=== PATIENT | female | born 1975 | race American Indian/Alaskan Native ===

== ENCOUNTER 2016-05-16 11:49 | Emergency (ER) | payer MEDICARE, OTHER ==
--- NOTE | 2016-05-16 12:55 | Emergency Department Report ---
Chief Complaint: Medical Clearance Stated Complaint: MEDICAL CLEARENCE FOR [place] Time Seen by Provider: 05/16/16 12:52 - HPI History of Present Illness: 40 y/o female here for medical clearance for alcohol abuse for [facility] .pt denies any homicidal or suicidal ideation. Patient last had alcohol on yesterday - ROS Review of Systems: per HPI - Exam Vital Signs: Vital Signs 05/16/16 12:39 Temperature 97.8 F Pulse Rate 100 H Respiratory 18 Rate Blood Pressure 155/96 O2 Sat by Pulse 98 Oximetry Physical Exam: GENERAL: The patient is well-developed and well-nourished. Patient is in NAD. HENT: Normocephalic. Atraumatic. Patient has moist mucous membranes. Throat: No erythema, swelling or exudates. EYES: Extraocular motions are intact, PERRL NECK: Supple. No meningitic signs are noted. There is no adenopathy noted. CHEST/LUNGS: Clear to auscultation bilaterally. No wheezing, rales or rhonchi noted. There is no respiratory distress noted. HEART/CARDIOVASCULAR: Regular rate and rhythm. Normal S1 S2. No murmurs, rubs , clicks, or gallops. ABDOMEN: Abdomen is soft, nontender.. Bowel sounds normoactive. There is no abdominal distention. Negative rebound tenderness. : Deferred. SKIN: There is no rash. There is no edema. There is no diaphoresis. NEURO: The patient is A&Ox3. The patient has no focal neurologic deficits. MUSCULOSKELETAL: There is no tenderness or deformity. There is no limitation range of motion. PSYCH: Pt has appropriate mood and affect. MSE screening note: Focused history and physical exam performed. Due to findings the following was ordered: ED Disposition for MSE Condition: Stable
[2016-05-16 14:41] LABS: Basophils % (Auto) 1.2 % (0.0-1.8); Eosinophils % (Auto) 0.7 % (0.0-4.3); Hematocrit 36.5 % (30.3-42.9); Hemoglobin 11.9 gm/dl (10.1-14.3); Mean Corpuscular HGB Conc 33 % (30-34); Mean Corpuscular Hemoglobin 28 pg (28-32); Mean Corpuscular Volume 87 fl (79-97); Platelet Count 317 K/mm3 (140-440); White Blood Count 4.5 K/mm3 (4.5-11.0)
[2016-05-16 14:46] LABS: BUN/Creatinine Ratio 21.66; Blood Urea Nitrogen 13 mg/dL (7-17); Calcium 9.1 mg/dL (8.4-10.2); Carbon Dioxide 23 mmol/L (22-30); Chloride 102.3 mmol/L (98-107); Glucose 93 mg/dL (65-100); Potassium 3.4 mmol/L (3.6-5.0); Sodium 140 mmol/L (137-145)
[2016-05-16 14:49] LABS: Anion Gap 18 mmol/L
[2016-05-16 15:46] LABS: Urine Drugs of Abuse Note Disclamer
[2016-05-16 16:33] LABS: Bilirubin,Urine NEG (Negative)
[2016-05-16 16:34] LABS: Bacteria,Urine 4+ /HPF (Negative); Blood,Urine NEG (Negative); Ketones,Urine NEG (Negative); Leukocyte Esterase,Urine LG (Negative); Mucus,Urine 3+ /HPF; Nitrite,Urine NEG (Negative); Urobilinogen,Urine < 2.0 mg/dL (<2.0)
--- NOTE | 2016-05-17 | Emergency Department Report ---
[id number] CLEARENCE FOR [place] Time Seen by Provider: 05/16/16 23:29 Source: patient Mode of arrival: Ambulatory Limitations: Physical Limitation - History of Present Illness Initial comments: This is a 41-year-old female, whom I have evaluated in the past. Has a past medical history of chronic migraines, headache, chronic right shoulder pain, right-sided paralysis secondary to stroke, heart disease with stent placement, hypertension, depression, lupus, chronic pain syndrome. She has residual right upper extremity contracture, right lower extremity weakness with orthotic placement. She presents to the emergency room for medical clearance for detox. She is seeking to detox from cocaine and narcotics. She denies homicidal or suicidal ideation. She denies hallucinations. Last ingested a few weeks ago. Denies acute/new medical complaints. MD Complaint: medical clearance request Reason for Medical Clearance: other (polysubstance abuse) Alledged Intoxication: No Compliant with Home Medications: Yes Traumatic Symptoms: denies traumatic injury Associated Symptoms: denies: chest pain, shortness of breath, palpitations, diaphoresis, confusion, cough, fever/chills, headaches, anorexia, malaise, nausea/vomiting, rash, seizure, syncope, weakness Home medications: Home Medications Medication Instructions Recorded Confirmed Last Taken amLODIPine [Norvasc] 10 mg PO DAILY 10/18/14 05/17/16 05/16/16 Aspirin EC [Aspirin Enteric Coated 81 mg PO QDAY 04/23/15 05/17/16 05/16/16 TAB] Bupropion HCl [buPROPion] 150 mg PO DAILY 04/23/15 05/17/16 05/16/16 Clopidogrel [Plavix] 75 mg PO QDAY 04/23/15 05/17/16 05/16/16 DULoxetine [Cymbalta] 30 mg PO DAILY 04/23/15 05/17/16 05/16/16 Fosinopril Sodium 10 mg PO DAILY 04/23/15 05/17/16 05/16/16 Hydroxychloroquine [Plaquenil] 200 mg PO QDAY 04/23/15 05/17/16 05/16/16 Multivitamin-Mineral 1 tab PO DAILY 04/23/15 05/17/16 05/16/16 Pantoprazole [Protonix] 40 mg PO QDAY 04/23/15 05/17/16 05/16/16 Pregabalin [Lyrica] 75 mg PO BID 04/23/15 05/17/16 05/16/16 Sertraline HCl [Zoloft] 100 mg PO DAILY 04/23/15 05/17/16 05/16/16 levETIRAcetam [Keppra TAB] 500 mg PO BID 04/23/15 05/17/16 05/16/16 Previous Rx's Medication Instructions Recorded Last Taken Type Ibuprofen [Motrin 800 MG tab] 800 mg PO Q8HR PRN #20 tablet 04/23/15 05/16/16 Rx Allergies/Adverse reactions: Allergies Allergy/AdvReac Type Severity Reaction Status Date / Time No Known Allergies Allergy Verified 04/10/16 12:51 ED Review of Systems ROS: Stated complaint: MEDICAL CLEARENCE FOR [place] Other details as noted in HPI Constitutional: no symptoms reported Eyes: as per HPI Respiratory: denies: cough, shortness of breath, wheezing Cardiovascular: denies: chest pain, palpitations Gastrointestinal: denies: abdominal pain, nausea, diarrhea Genitourinary: denies: urgency, dysuria, discharge Musculoskeletal: as per HPI Neurological: as per HPI Psychiatric: denies: homicidal thoughts, suicidal thoughts ED Past Medical Hx - Past Medical History Hx Hypertension: Yes 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) Hx Heart Attack/AMI: Yes (stents) Hx Congestive Heart Failure: No Hx Diabetes: No Hx Renal Disease: Yes (pt states hospitalized about 5 mths ago) Hx Arthritis: No Hx Headaches / Migraines: Yes Hx Seizures: Yes Hx Psychiatric Treatment: Yes (depression) Hx Asthma: No Hx COPD: No Additional medical history: lupus, ambulates with assistance - Surgical History Hx Open Heart Surgery: Yes (stents) - Social History Smoking Status: Current Every Day Smoker Substance Use Type: Alcohol, Cocaine, Prescribed - Medications Home Medications: Home Medications Medication Instructions Recorded Confirmed Last Taken Type amLODIPine [Norvasc] 10 mg PO DAILY 10/18/14 05/17/16 05/16/16 History Aspirin EC [Aspirin Enteric Coated 81 mg PO QDAY 04/23/15 05/17/16 05/16/16 History TAB] Bupropion HCl [buPROPion] 150 mg PO DAILY 04/23/15 05/17/16 05/16/16 History Clopidogrel [Plavix] 75 mg PO QDAY 04/23/15 05/17/16 05/16/16 History DULoxetine [Cymbalta] 30 mg PO DAILY 04/23/15 05/17/16 05/16/16 History Fosinopril Sodium 10 mg PO DAILY 04/23/15 05/17/16 05/16/16 History Hydroxychloroquine [Plaquenil] 200 mg PO QDAY 04/23/15 05/17/16 05/16/16 History Ibuprofen [Motrin 800 MG tab] 800 mg PO Q8HR PRN #20 tablet 04/23/15 05/17/16 Rx Multivitamin-Mineral 1 tab PO DAILY 04/23/15 05/17/16 05/16/16 History Pantoprazole [Protonix] 40 mg PO QDAY 04/23/15 05/17/16 05/16/16 History Pregabalin [Lyrica] 75 mg PO BID 04/23/15 05/17/16 05/16/16 History Sertraline HCl [Zoloft] 100 mg PO DAILY 04/23/15 05/17/16 05/16/16 History levETIRAcetam [Keppra TAB] 500 mg PO BID 04/23/15 05/17/16 05/16/16 History ED Physical Exam - General Limitations: No Limitations, Physical Limitation General appearance: alert, in no apparent distress - Head Head exam: Present: atraumatic, normocephalic - Eye Eye exam: Present: normal appearance, EOMI. Absent: nystagmus - ENT ENT exam: Present: normal exam, normal orophraynx, mucous membranes moist, normal external ear exam - Neck Neck exam: Present: normal inspection, full ROM. Absent: tenderness, meningismus - Respiratory Respiratory exam: Present: normal lung sounds bilaterally. Absent: respiratory distress, wheezes, rales, rhonchi, stridor, chest wall tenderness - Cardiovascular Cardiovascular Exam: Present: regular rate, normal rhythm, normal heart sounds. Absent: bradycardia, tachycardia, irregular rhythm, systolic murmur, diastolic murmur, rubs, gallop - GI/Abdominal GI/Abdominal exam: Present: soft, normal bowel sounds. Absent: distended, tenderness, guarding, rebound, rigid, pulsatile mass - Extremities Exam Extremities exam: Present: normal inspection, normal capillary refill, other ( full range of motion, left upper extremity, left lower extremity. Chronic right upper extremity contracture.). Absent: calf tenderness - Back Exam Back exam: Present: normal inspection, full ROM. Absent: tenderness, CVA tenderness (R), CVA tenderness (L), muscle spasm, paraspinal tenderness, vertebral tenderness - Neurological Exam Neurological exam: Present: alert, oriented X3, normal gait (patient walks with a slight limp.), other (5/5 strength left upper extremity, left lower extremity. Sensation intact to light touch 4 extremities. Chronic weakness right upper/right lower extremity). Absent: motor sensory deficit - Psychiatric Psychiatric exam: Present: normal affect, normal mood. Absent: homicidal ideation, suicidal ideation - Skin Skin exam: Present: warm, dry, intact, normal color. Absent: rash ED Course Vital Signs 05/16/16 05/16/16 05/16/16 12:39 21:55 23:30 Temperature 97.8 F 98.7 F 98 F Pulse Rate 100 H 88 83 Respiratory 18 18 18 Rate Blood Pressure 155/96 152/101 Blood Pressure 136/89 [Left] O2 Sat by Pulse 98 100 99 Oximetry - Reevaluation(s) Reevaluation #1: 05/16/16 23:58 Differential diagnoses: General medical examination, medical clearance for detox Assessment and plan: 40-year-old female here for detox therapy. She is afebrile with reassuring vital signs, and has no objective indication for 1013. Her physical exam today is essentially unchanged as when I pry her evaluated her in 04/10/2016. Laboratory studies reviewed, and are essentially unremarkable. At this point in time, I see no immediate medical contraindication to detox therapy. Reevaluation #2: 05/17/16 00:00 Urinalysis is appreciated. The patient reports no irritative or obstructive urinary symptoms. ED Medical Decision Making - Lab Data Result diagrams: 05/16/16 14:11 05/16/16 14:11 Vital Signs 05/16/16 05/16/16 12:39 21:55 Temperature 97.8 F 98.7 F Pulse Rate 100 H 88 Respiratory 18 18 Rate Blood Pressure 155/96 152/101 O2 Sat by Pulse 98 100 Oximetry Lab Results 05/16/16 05/16/16 05/16/16 Range/Units 14:11 14:11 14:11 WBC 4.5 (4.5-11.0) K/mm3 RBC 4.20 (3.65-5.03) M/mm3 Hgb 11.9 (10.1-14.3) gm/dl Hct 36.5 (30.3-42.9) % MCV 87 (79-97) fl MCH 28 (28-32) pg MCHC 33 (30-34) % RDW 14.0 (13.2-15.2) % Plt Count 317 (140-440) K/mm3 Lymph % (Auto) 23.4 (13.4-35.0) % [place] % (Auto) 9.3 H (0.0-7.3) % Eos % (Auto) 0.7 (0.0-4.3) % Baso % (Auto) 1.2 (0.0-1.8) % Lymph # 1.0 L (1.2-5.4) K/mm3 [place] # 0.4 (0.0-0.8) K/mm3 Eos # 0.0 (0.0-0.4) K/mm3 Baso # 0.1 (0.0-0.1) K/mm3 Seg Neutrophils % 65.4 (40.0-70.0) % Seg Neutrophils # 2.9 (1.8-7.7) K/mm3 Sodium 140 (137-145) mmol/L Potassium 3.4 L (3.6-5.0) mmol/L Chloride 102.3 (98-107) mmol/L Carbon Dioxide 23 (22-30) mmol/L Anion Gap 18 mmol/L BUN 13 (7-17) mg/dL Creatinine 0.6 L (0.7-1.2) mg/dL Estimated GFR > 60 ml/min BUN/Creatinine Ratio 21.66 % Glucose 93 (65-100) mg/dL Calcium 9.1 (8.4-10.2) mg/dL HCG, Qual (Negative) Urine Color (Yellow) Urine Turbidity (Clear) Urine pH (5.0-7.0) Ur Specific [place] (1.003-1.030) Urine Protein (Negative) mg/dL Urine Glucose (UA) (Negative) mg/dL Urine Ketones (Negative) mg/dL Urine Blood (Negative) Urine Nitrite (Negative) Urine Bilirubin (Negative) Urine Urobilinogen (<2.0) mg/dL Ur Leukocyte Esterase (Negative) Urine WBC (Auto) (0.0-6.0) /HPF Urine RBC (Auto) (0.0-6.0) /HPF U Epithel Cells (Auto) (0-13.0) /HPF Urine Bacteria (Auto) (Negative) /HPF Urine Mucus /HPF Salicylates < 0.3 L (2.8-20.0) mg/dL Urine Opiates Screen Urine Methadone Screen Acetaminophen (10.0-30.0) ug/mL Ur Barbiturates Screen Ur Phencyclidine Scrn Ur Amphetamines Screen U Benzodiazepines Scrn Urine Cocaine Screen U Marijuana (THC) Screen Drugs of Abuse Note Plasma/Serum Alcohol (0-0.07) gm% 05/16/16 05/16/16 05/16/16 Range/Units 14:11 14:11 14:11 WBC (4.5-11.0) K/mm3 RBC (3.65-5.03) M/mm3 Hgb (10.1-14.3) gm/dl Hct (30.3-42.9) % MCV (79-97) fl MCH (28-32) pg MCHC (30-34) % RDW (13.2-15.2) % Plt Count (140-440) K/mm3 Lymph % (Auto) (13.4-35.0) % [place] % (Auto) (0.0-7.3) % Eos % (Auto) (0.0-4.3) % Baso % (Auto) (0.0-1.8) % Lymph # (1.2-5.4) K/mm3 [place] # (0.0-0.8) K/mm3 Eos # (0.0-0.4) K/mm3 Baso # (0.0-0.1) K/mm3 Seg Neutrophils % (40.0-70.0) % Seg Neutrophils # (1.8-7.7) K/mm3 Sodium (137-145) mmol/L Potassium (3.6-5.0) mmol/L Chloride (98-107) mmol/L Carbon Dioxide (22-30) mmol/L Anion Gap mmol/L BUN (7-17) mg/dL Creatinine (0.7-1.2) mg/dL Estimated GFR ml/min BUN/Creatinine Ratio % Glucose (65-100) mg/dL Calcium (8.4-10.2) mg/dL HCG, Qual Negative (Negative) Urine Color (Yellow) Urine Turbidity (Clear) Urine pH (5.0-7.0) Ur Specific [place] (1.003-1.030) Urine Protein (Negative) mg/dL Urine Glucose (UA) (Negative) mg/dL Urine Ketones (Negative) mg/dL Urine Blood (Negative) Urine Nitrite (Negative) Urine Bilirubin (Negative) Urine Urobilinogen (<2.0) mg/dL Ur Leukocyte Esterase (Negative) Urine WBC (Auto) (0.0-6.0) /HPF Urine RBC (Auto) (0.0-6.0) /HPF U Epithel Cells (Auto) (0-13.0) /HPF Urine Bacteria (Auto) (Negative) /HPF Urine Mucus /HPF Salicylates (2.8-20.0) mg/dL Urine Opiates Screen Urine Methadone Screen Acetaminophen < 15.0 (10.0-30.0) ug/mL Ur Barbiturates Screen Ur Phencyclidine Scrn Ur Amphetamines Screen U Benzodiazepines Scrn Urine Cocaine Screen U Marijuana (THC) Screen Drugs of Abuse Note Plasma/Serum Alcohol < 0.01 (0-0.07) gm% 05/16/16 05/16/16 Range/Units 15:17 15:17 WBC (4.5-11.0) K/mm3 RBC (3.65-5.03) M/mm3 Hgb (10.1-14.3) gm/dl Hct (30.3-42.9) % MCV (79-97) fl MCH (28-32) pg MCHC (30-34) % RDW (13.2-15.2) % Plt Count (140-440) K/mm3 Lymph % (Auto) (13.4-35.0) % [place] % (Auto) (0.0-7.3) % Eos % (Auto) (0.0-4.3) % Baso % (Auto) (0.0-1.8) % Lymph # (1.2-5.4) K/mm3 [place] # (0.0-0.8) K/mm3 Eos # (0.0-0.4) K/mm3 Baso # (0.0-0.1) K/mm3 Seg Neutrophils % (40.0-70.0) % Seg Neutrophils # (1.8-7.7) K/mm3 Sodium (137-145) mmol/L Potassium (3.6-5.0) mmol/L Chloride (98-107) mmol/L Carbon Dioxide (22-30) mmol/L Anion Gap mmol/L BUN (7-17) mg/dL Creatinine (0.7-1.2) mg/dL Estimated GFR ml/min BUN/Creatinine Ratio % Glucose (65-100) mg/dL Calcium (8.4-10.2) mg/dL HCG, Qual (Negative) Urine Color [place] (Yellow) Urine Turbidity Turbid (Clear) Urine pH 6.0 (5.0-7.0) Ur Specific [place] 1.024 (1.003-1.030) Urine Protein 30 mg/dl (Negative) mg/dL Urine Glucose (UA) Neg (Negative) mg/dL Urine Ketones Neg (Negative) mg/dL Urine Blood Neg (Negative) Urine Nitrite Neg (Negative) Urine Bilirubin Neg (Negative) Urine Urobilinogen < 2.0 (<2.0) mg/dL Ur Leukocyte Esterase Lg (Negative) Urine WBC (Auto) 8.0 H (0.0-6.0) /HPF Urine RBC (Auto) 17.0 (0.0-6.0) /HPF U Epithel Cells (Auto) 1.0 (0-13.0) /HPF Urine Bacteria (Auto) 4+ (Negative) /HPF Urine Mucus 3+ /HPF Salicylates (2.8-20.0) mg/dL Urine Opiates Screen Presumptive negative Urine Methadone Screen Presumptive negative Acetaminophen (10.0-30.0) ug/mL Ur Barbiturates Screen Presumptive negative Ur Phencyclidine Scrn Presumptive negative Ur Amphetamines Screen Presumptive negative U Benzodiazepines Scrn Presumptive negative Urine Cocaine Screen Presumptive negative U Marijuana (THC) Screen Presumptive negative Drugs of Abuse Note Disclamer Plasma/Serum Alcohol (0-0.07) gm% Vital Signs 05/16/16 05/16/16 12:39 21:55 Temperature 97.8 F 98.7 F Pulse Rate 100 H 88 Respiratory 18 18 Rate Blood Pressure 155/96 152/101 O2 Sat by Pulse 98 100 Oximetry ED Disposition Clinical Impression: Medical clearance for psychiatric admission Disposition: DISCHARGED TO HOME OR SELFCARE Is pt being admited?: No Does the pt Need Aspirin: No Condition: Stable Instructions: Polysubstance Abuse (ED) Additional Instructions: Continue current outpatient medications which are nonsedating and nonnarcotic/ [id number]. Blood pressure was slightly elevated. This should be followed up by a primary care doctor within the next week to 2 weeks. Long- term complications of hypertension/elevated blood pressure includes stroke, heart attack, disability, , paralysis, permanent loss of quality of life. I recommend that you discontinue consumption of narcotics and cocaine. These are bad for your health. At this point in time, I see no immediate medical contraindication to detox therapy. Please return to the ER right away with chest pain, shortness of breath, nausea, vomiting, diarrhea. Referrals: PRIMARY CAREMD [Primary Care Provider] - 3-5 Days PHILL CLEANING MD [Staff Physician] - 3-5 Days [facility] [Provider Group] - 3-5 Days [facility] [Outside] - 3-5 Days
[2016-05-17 00:08] VITALS: BP 136/89
== END 2016-05-17 00:23 | disposition home or self-care (01) ==
LOC: ED 11:49
DX: F19.10 Other psychoactive substance abuse, uncomplicated (principal); F29 Unspecified psychosis not due to a substance or known physiological condition; Z79.82 Long term (current) use of aspirin; I10 Essential (primary) hypertension; I25.2 Old myocardial infarction; G43.909 Migraine, unspecified, not intractable, without status migrainosus; F32.9 Major depressive disorder, single episode, unspecified; R56.9 Unspecified convulsions; F17.210 Nicotine dependence, cigarettes, uncomplicated; I63.9 Cerebral infarction, unspecified; G81.91 Hemiplegia, unspecified affecting right dominant side; F12.10 Cannabis abuse, uncomplicated
CPT/HCPCS: 36415; 80048; 80307; 81001; 84703; 85025; 99283; G0480; 80320

== ENCOUNTER 2016-07-22 15:58 | Emergency (ER) | payer MEDICARE, OTHER ==
[2016-07-22 18:34] LABS: Urine Drugs of Abuse Note Disclamer
[2016-07-22 18:45] LABS: Bilirubin,Urine NEG (Negative); Blood,Urine NEG (Negative); Ketones,Urine NEG (Negative); Leukocyte Esterase,Urine NEG (Negative); Mucus,Urine FEW /HPF; Nitrite,Urine NEG (Negative); Protein,Urine <15 mg/dL mg/dL (Negative); RBC,Urine < 1.0 /HPF (0.0-6.0); Urobilinogen,Urine < 2.0 mg/dL (<2.0)
[2016-07-22] MEDS ORDERED: REGLAN IV ONE (19:34)
[2016-07-22] MEDS ORDERED: BENADRYL IV ONE (19:34)
[2016-07-22] MEDS ORDERED: TORADOL IV ONE (19:36)
--- NOTE | 2016-07-22 19:50 | Emergency Department Report ---
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 Headache started today and constant. Triage noted headache in the frontal area but patient states that headache is all over. Pain rated 10/10 in intensity. Positive light sensitivity. No ports of nausea, vomiting, blurred vision. Presents chronic right-sided weakness and dysarthria without any acute neurologic changes. Patient cannot recall what her previous migraine felt like since it has been a long time she had a headache. She also complains of chronic right- sided arm pain due to CVA and previous fracture. Allergies/Adverse Reactions: Allergies No Known Allergies Allergy (Verified 04/10/16 12:51) Home Medications: Ambulatory Orders amLODIPine [Norvasc] 10 mg PO DAILY 10/18/14 Aspirin EC [Aspirin Enteric Coated TAB] 81 mg PO QDAY 04/23/15 Bupropion HCl [buPROPion] 150 mg PO DAILY 04/23/15 Clopidogrel [Plavix] 75 mg PO QDAY 04/23/15 DULoxetine [Cymbalta] 30 mg PO DAILY 04/23/15 Fosinopril Sodium 10 mg PO DAILY 04/23/15 Hydroxychloroquine [Plaquenil] 200 mg PO QDAY 04/23/15 Ibuprofen [Motrin 800 MG tab] 800 mg PO Q8HR PRN #20 tablet 04/23/15 Multivitamin-Mineral 1 tab PO DAILY 04/23/15 Pantoprazole [Protonix] 40 mg PO QDAY 04/23/15 Pregabalin [Lyrica] 75 mg PO BID 04/23/15 Sertraline HCl [Zoloft] 100 mg PO DAILY 04/23/15 levETIRAcetam [Keppra TAB] 500 mg PO BID 04/23/15 HYDROcodone/APAP 5-325 [[place] 5/325] 1 each PO Q6HR PRN #20 tablet 07/22/16 ED Review of Systems ROS: Stated complaint: HEADACHE Other details as noted in HPI Comment: All other systems reviewed and negative Other: Constitutional: No fevers chills Eyes: No eye pain visual changes ENT: No ear pain or throat pain Neck: Denies pain Respiratory: Denies cough wheezing shortness of breath Cardiovascular: Denies chest pain, palpitations, syncope GI: Denies abdominal pain, nausea, vomiting, diarrhea Musculoskeletal: Denies back pain, joint swelling Skin: Denies rash, lesions, erythema Neurologic: as per hpi Psychiatric: Denies suicidal ideation, hallucinations ED Past Medical Hx - Past Medical History Hx Hypertension: Yes 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, dysphagia) Hx Heart Attack/AMI: Yes (stents) Hx Congestive Heart Failure: No Hx Diabetes: No Hx Renal Disease: Yes (pt states hospitalized about 5 mths ago) Hx Arthritis: No Hx Headaches / Migraines: Yes Hx Seizures: Yes Hx Psychiatric Treatment: Yes (depression) Hx Asthma: No Hx COPD: No Additional medical history: lupus, ambulates with assistance - Surgical History Hx Open Heart Surgery: Yes (stents) - Social History Smoking Status: Former Smoker Substance Use Type: Alcohol - Medications Home Medications: Home Medications Medication Instructions Recorded Confirmed Last Taken Type amLODIPine [Norvasc] 10 mg PO DAILY 10/18/14 05/17/16 05/16/16 History Aspirin EC [Aspirin Enteric Coated 81 mg PO QDAY 04/23/15 05/17/16 05/16/16 History TAB] Bupropion HCl [buPROPion] 150 mg PO DAILY 04/23/15 05/17/16 05/16/16 History Clopidogrel [Plavix] 75 mg PO QDAY 04/23/15 05/17/16 05/16/16 History DULoxetine [Cymbalta] 30 mg PO DAILY 04/23/15 05/17/16 05/16/16 History Fosinopril Sodium 10 mg PO DAILY 04/23/15 05/17/16 05/16/16 History Hydroxychloroquine [Plaquenil] 200 mg PO QDAY 04/23/15 05/17/16 05/16/16 History Ibuprofen [Motrin 800 MG tab] 800 mg PO Q8HR PRN #20 tablet 04/23/15 05/17/16 Rx Multivitamin-Mineral 1 tab PO DAILY 04/23/15 05/17/16 05/16/16 History Pantoprazole [Protonix] 40 mg PO QDAY 04/23/15 05/17/16 05/16/16 History Pregabalin [Lyrica] 75 mg PO BID 04/23/15 05/17/16 05/16/16 History Sertraline HCl [Zoloft] 100 mg PO DAILY 04/23/15 05/17/16 05/16/16 History levETIRAcetam [Keppra TAB] 500 mg PO BID 04/23/15 05/17/16 05/16/16 History HYDROcodone/APAP 5-325 [[place] 1 each PO Q6HR PRN #20 tablet 07/22/16 Unknown Rx 5/325] ED Physical Exam - General Limitations: No Limitations - Other Other exam information: General: No limitations, patient is alert in no acute distress Head exam: Atraumatic, normocephalic Eyes exam: Normal appearance, pupils equal reactive to light, extraocular movements intact ENT: Moist mucous membrane Neck exam: Normal inspection, full range of motion, no meningismus nontender Respiratory exam: Clear to auscultation bilateral, no wheezes, rales, crackles Cardiovascular: Normal rate and rhythm, normal heart sounds Abdomen: Soft, nondistended, and nontender, with normal bowel sounds, no rebound, or guarding Extremity: Full range of motion normal inspection no deformity Back: Normal Inspection, full range of motion, no tenderness Neurologic: Alert, chronic dysarthria, limited movement of right upper lower extremity with contractures. Psychiatric: normal affect, normal mood Skin: Warm, dry, intact ED Course Vital Signs 07/22/16 07/22/16 07/22/16 16:08 16:21 17:00 Temperature 98.3 F Pulse Rate 105 H Respiratory 18 Rate Blood Pressure 125/90 120/75 Blood Pressure 125/90 [Left] O2 Sat by Pulse 96 96 98 Oximetry 07/22/16 07/22/16 07/22/16 17:59 18:00 19:00 Temperature Pulse Rate Respiratory 18 Rate Blood Pressure 136/56 136/84 Blood Pressure [Left] O2 Sat by Pulse 99 97 Oximetry 07/22/16 07/22/16 07/22/16 19:30 20:00 21:00 Temperature Pulse Rate 84 82 86 Respiratory 18 18 16 Rate Blood Pressure Blood Pressure 132/85 132/82 139/85 [Left] O2 Sat by Pulse 96 96 96 Oximetry - Reevaluation(s) Reevaluation #1: 07/22/16 22:52 pt improved with ed tx ED Medical Decision Making - Lab Data Result diagrams: 07/22/16 19:39 07/22/16 19:39 Lab Results 07/22/16 07/22/16 07/22/16 Range/Units 18:00 18:00 19:39 WBC 3.7 L (4.5-11.0) K/mm3 RBC 4.10 (3.65-5.03) M/mm3 Hgb 11.5 (10.1-14.3) gm/dl Hct 35.2 (30.3-42.9) % MCV 86 (79-97) fl MCH 28 (28-32) pg MCHC 33 (30-34) % RDW 14.4 (13.2-15.2) % Plt Count 255 (140-440) K/mm3 Sodium (137-145) mmol/L Potassium (3.6-5.0) mmol/L Chloride (98-107) mmol/L Carbon Dioxide (22-30) mmol/L Anion Gap mmol/L BUN (7-17) mg/dL Creatinine (0.7-1.2) mg/dL Estimated GFR ml/min BUN/Creatinine Ratio % Glucose (65-100) mg/dL Calcium (8.4-10.2) mg/dL Urine Color Yellow (Yellow) Urine Turbidity Clear (Clear) Urine pH 7.0 (5.0-7.0) Ur Specific [place] 1.013 (1.003-1.030) Urine Protein <15 mg/dl (Negative) mg/dL Urine Glucose (UA) Neg (Negative) mg/dL Urine Ketones Neg (Negative) mg/dL Urine Blood Neg (Negative) Urine Nitrite Neg (Negative) Urine Bilirubin Neg (Negative) Urine Urobilinogen < 2.0 (<2.0) mg/dL Ur Leukocyte Esterase Neg (Negative) Urine WBC (Auto) 1.0 (0.0-6.0) /HPF Urine RBC (Auto) < 1.0 (0.0-6.0) /HPF U Epithel Cells (Auto) 1.0 (0-13.0) /HPF Urine Mucus Few /HPF Urine HCG, Qual Negative (Negative) Urine Opiates Screen Presumptive negative Urine Methadone Screen Presumptive negative Ur Barbiturates Screen Presumptive negative Ur Phencyclidine Scrn Presumptive negative Ur Amphetamines Screen Presumptive negative U Benzodiazepines Scrn Presumptive negative Urine Cocaine Screen Presumptive negative U Marijuana (THC) Screen Presumptive negative Drugs of Abuse Note Disclamer 07/22/16 Range/Units 19:39 WBC (4.5-11.0) K/mm3 RBC (3.65-5.03) M/mm3 Hgb (10.1-14.3) gm/dl Hct (30.3-42.9) % MCV (79-97) fl MCH (28-32) pg MCHC (30-34) % RDW (13.2-15.2) % Plt Count (140-440) K/mm3 Sodium 140 (137-145) mmol/L Potassium 4.2 (3.6-5.0) mmol/L Chloride 101.7 (98-107) mmol/L Carbon Dioxide 26 (22-30) mmol/L Anion Gap 17 mmol/L BUN 8 (7-17) mg/dL Creatinine 0.7 (0.7-1.2) mg/dL Estimated GFR > 60 ml/min BUN/Creatinine Ratio 11.42 % Glucose 88 (65-100) mg/dL Calcium 9.1 (8.4-10.2) mg/dL Urine Color (Yellow) Urine Turbidity (Clear) Urine pH (5.0-7.0) Ur Specific [place] (1.003-1.030) Urine Protein (Negative) mg/dL Urine Glucose (UA) (Negative) mg/dL Urine Ketones (Negative) mg/dL Urine Blood (Negative) Urine Nitrite (Negative) Urine Bilirubin (Negative) Urine Urobilinogen (<2.0) mg/dL Ur Leukocyte Esterase (Negative) Urine WBC (Auto) (0.0-6.0) /HPF Urine RBC (Auto) (0.0-6.0) /HPF U Epithel Cells (Auto) (0-13.0) /HPF Urine Mucus /HPF Urine HCG, Qual (Negative) Urine Opiates Screen Urine Methadone Screen Ur Barbiturates Screen Ur Phencyclidine Scrn Ur Amphetamines Screen U Benzodiazepines Scrn Urine Cocaine Screen U Marijuana (THC) Screen Drugs of Abuse Note - Radiology Data Radiology results: report reviewed CT head: Large area of encephalomalacia in the left hemisphere with dystrophic cortical calcifications unchanged from prior study consistent with old infarct. No acute findings. - Medical Decision Making Patient pain ED treatment which included Toradol, Benadryl, and Reglan. - Differential Diagnosis migraine, intracranial hemorrhage, CVA Critical Care Time: No Critical care attestation.: If time is entered above; I have spent that time in minutes in the direct care of this critically ill patient, excluding procedure time. ED Disposition Clinical Impression: Migraine headache, CVA, old, speech/language deficit, History of CVA with residual deficit, Chronic pain of right upper extremity Disposition: DISCHARGED TO HOME OR SELFCARE Is pt being admited?: No Does the pt Need Aspirin: No Condition: Stable Instructions: Migraine Headache (ED) Additional Instructions: Take the medication as prescribed. Return if symptoms worsen. Prescriptions: HYDROcodone/APAP 5-325 [[place] 5/325] 1 each PO Q6HR PRN #20 tablet PRN Reason: Pain Referrals: PRIMARY CARE, [Primary Care Provider] - 3-5 Days Time of Disposition: 22:47
[2016-07-22 19:51] LABS: Hematocrit 35.2 % (30.3-42.9); Hemoglobin 11.5 gm/dl (10.1-14.3); Mean Corpuscular HGB Conc 33 % (30-34); Mean Corpuscular Hemoglobin 28 pg (28-32); Mean Corpuscular Volume 86 fl (79-97); Platelet Count 255 K/mm3 (140-440); Red Cell Distribution Width 14.4 % (13.2-15.2); White Blood Count 3.7 K/mm3 (4.5-11.0)
[2016-07-22 20:10] LABS: Anion Gap 17 mmol/L; BUN/Creatinine Ratio 11.42; Blood Urea Nitrogen 8 mg/dL (7-17); Calcium 9.1 mg/dL (8.4-10.2); Carbon Dioxide 26 mmol/L (22-30); Chloride 101.7 mmol/L (98-107); Glucose 88 mg/dL (65-100); Potassium 4.2 mmol/L (3.6-5.0); Sodium 140 mmol/L (137-145)
--- NOTE | 2016-07-22 21:13 | Cat Scan Report ---
FINAL REPORT PROCEDURE: CT HEAD/BRAIN WO CON TECHNIQUE: Computerized tomography of the head was performed without contrast material. HISTORY: headache, hx of migraines, cva with r paralysis COMPARISON: 04/10/2016 FINDINGS: Skull and scalp: Normal. Paranasal sinuses: Normal. Ventricles and subarachnoid spaces: There is central and cortical atrophy which is advanced for the patient's age. There is ex vacuo dilatation of the left lateral ventricle due to adjacent infarcted brain.. Cerebrum: There is a large area of encephalomalacia in the left hemisphere with dystrophic cortical calcifications unchanged from prior study consistent with old infarct. There is no specific evidence of acute infarct. There is no hemorrhage, mass, mass effect or midline shift.. Cerebellum and brainstem: No evidence of hemorrhage, acute infarction or mass. There is atrophy of the left cerebral peduncle. Vasculature: Normal. Comments: None. IMPRESSION: There is central and cortical atrophy which is advanced for the patient's age. There is ex vacuo dilatation of the left lateral ventricle due to adjacent infarcted brain.. There is a large area of encephalomalacia in the left hemisphere with dystrophic cortical calcifications unchanged from prior study consistent with old infarct. There is no specific evidence of acute infarct. There is no hemorrhage, mass, mass effect or midline shift..
[2016-07-22 23:36] VITALS: BP 129/88
== END 2016-07-22 23:30 | disposition home or self-care (01) ==
LOC: ED 15:58
DX: G43.909 Migraine, unspecified, not intractable, without status migrainosus (principal); I63.9 Cerebral infarction, unspecified; G89.29 Other chronic pain; F32.9 Major depressive disorder, single episode, unspecified; I25.2 Old myocardial infarction; Z87.891 Personal history of nicotine dependence; Z79.82 Long term (current) use of aspirin
CPT/HCPCS: 36415; 70450; 80048; 80307; 81001; 81025; 85027; 93005; 93010; 96374; 96375; 99284; J1200; J1885; J2765

== ENCOUNTER 2016-08-14 17:51 | Emergency (ER) | payer MEDICARE, OTHER ==
[2016-08-14] MEDS ORDERED: NACL 0.9% 1000 ML 1,000 ML IV ONE (20:39)
[2016-08-14] MEDS ORDERED: MOTRIN PO ONE (20:39)
--- NOTE | 2016-08-14 20:45 | Emergency Department Report ---
ED Lower Extremity HPI - General Chief Complaint: Pain General Stated Complaint: RT SIDE PAIN Time Seen by Provider: 08/14/16 20:24 Source: patient, EMS Mode of arrival: Stretcher Limitations: Physical Limitation - History of Present Illness Initial Comments: Patient is a 46-year-old female with a history of HIV, multiple CVAs, with right -sided deficits presenting with right lower leg pain 2 days. Push ambulates with a cane and via a wheelchair. Patient reports the pain is in her right lower calf. Patient is on Plavix daily and has not missed any medication doses. Otherwise no fevers, chills, nausea, vomiting, diarrhea, chest pain, shortness of breath, abdominal pain, trauma, history of DVT or PE, hemoptysis, travel, or sick contacts. - Related Data Home Medications Medication Instructions Recorded Confirmed Last Taken amLODIPine [Norvasc] 10 mg PO DAILY 10/18/14 08/14/16 08/14/16 Aspirin EC [Aspirin Enteric Coated 81 mg PO QDAY 04/23/15 08/14/16 08/14/16 TAB] Bupropion HCl [buPROPion] 150 mg PO DAILY 04/23/15 08/14/16 08/14/16 Clopidogrel [Plavix] 75 mg PO QDAY 04/23/15 08/14/16 08/14/16 DULoxetine [Cymbalta] 30 mg PO DAILY 04/23/15 08/14/16 08/14/16 Fosinopril Sodium 10 mg PO DAILY 04/23/15 08/14/16 08/14/16 Multivitamin-Mineral 1 tab PO DAILY 04/23/15 08/14/16 08/14/16 Pantoprazole [Protonix] 40 mg PO QDAY 04/23/15 08/14/16 08/14/16 Pregabalin [Lyrica] 75 mg PO BID 04/23/15 08/14/16 08/14/16 Sertraline HCl [Zoloft] 100 mg PO DAILY 04/23/15 08/14/16 08/14/16 levETIRAcetam [Keppra TAB] 500 mg PO BID 04/23/15 08/14/16 08/14/16 Previous Rx's Medication Instructions Recorded Last Taken Type Ibuprofen [Motrin] 600 mg PO Q8H PRN 5 Days 08/14/16 Unknown Rx Allergies Allergy/AdvReac Type Severity Reaction Status Date / Time No Known Allergies Allergy Verified 04/10/16 12:51 ED Review of Systems ROS: Stated complaint: RT SIDE PAIN Other details as noted in HPI Comment: All other systems reviewed and negative ED Past Medical Hx - Past Medical History Previous Medical History?: Yes Hx Hypertension: Yes 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, dysphagia) Hx Heart Attack/AMI: Yes (stents) Hx Congestive Heart Failure: No Hx Diabetes: No Hx Renal Disease: Yes (pt states hospitalized about 5 mths ago) Hx Arthritis: No Hx Headaches / Migraines: Yes Hx Seizures: Yes Hx Psychiatric Treatment: Yes (depression) Hx Asthma: No Hx COPD: No Additional medical history: lupus, ambulates with assistance - Surgical History Hx Open Heart Surgery: Yes (stents) - Social History Smoking Status: Never Smoker Substance Use Type: None - Medications Home Medications: Home Medications Medication Instructions Recorded Confirmed Last Taken Type amLODIPine [Norvasc] 10 mg PO DAILY 10/18/14 08/14/16 08/14/16 History Aspirin EC [Aspirin Enteric Coated 81 mg PO QDAY 04/23/15 08/14/16 08/14/16 History TAB] Bupropion HCl [buPROPion] 150 mg PO DAILY 04/23/15 08/14/16 08/14/16 History Clopidogrel [Plavix] 75 mg PO QDAY 04/23/15 08/14/16 08/14/16 History DULoxetine [Cymbalta] 30 mg PO DAILY 04/23/15 08/14/16 08/14/16 History Fosinopril Sodium 10 mg PO DAILY 04/23/15 08/14/16 08/14/16 History Multivitamin-Mineral 1 tab PO DAILY 04/23/15 08/14/16 08/14/16 History Pantoprazole [Protonix] 40 mg PO QDAY 04/23/15 08/14/16 08/14/16 History Pregabalin [Lyrica] 75 mg PO BID 04/23/15 08/14/16 08/14/16 History Sertraline HCl [Zoloft] 100 mg PO DAILY 04/23/15 08/14/16 08/14/16 History levETIRAcetam [Keppra TAB] 500 mg PO BID 04/23/15 08/14/16 08/14/16 History Ibuprofen [Motrin] 600 mg PO Q8H PRN 5 Days 08/14/16 Unknown Rx ED Physical Exam - General Limitations: Language Barrier (Dysarthria), Physical Limitation General appearance: alert, in no apparent distress - Head Head exam: Present: atraumatic, normocephalic - Eye Eye exam: Present: normal appearance - ENT ENT exam: Present: mucous membranes moist - Neck Neck exam: Present: normal inspection - Respiratory Respiratory exam: Present: normal lung sounds bilaterally. Absent: respiratory distress - Cardiovascular Cardiovascular Exam: Present: regular rate, normal rhythm. Absent: systolic murmur, diastolic murmur, rubs, gallop - GI/Abdominal GI/Abdominal exam: Present: soft, normal bowel sounds - Extremities Exam Extremities exam: Present: normal inspection, other (Pt has R sided paralysis, sensation is intact, R calf tenderness. left side is WNL) - Back Exam Back exam: Present: normal inspection - Neurological Exam Neurological exam: Present: alert, oriented X3, CN II-XII intact, abnormal gait - Psychiatric Psychiatric exam: Present: normal affect, normal mood ED Course Vital Signs 08/14/16 08/14/16 08/14/16 19:35 19:42 21:15 Temperature 98 F Pulse Rate 89 Respiratory 18 18 Rate Blood Pressure 128/79 O2 Sat by Pulse 100 Oximetry 08/14/16 08/14/16 23:06 23:27 Temperature Pulse Rate Respiratory 18 18 Rate Blood Pressure O2 Sat by Pulse 98 Oximetry ED Lower Extremity MDM - Lab Data Result diagrams: 08/14/16 20:54 08/14/16 20:54 - Radiology Data Radiology results: pending, report reviewed 08/14/16 22:21 - Radiology Dept. Note by KRISTIAN RICHTER Acct Num: [id number] : 1975 Patient Age: 40 Venous RLE for R/O DVT: Per Images obtained no evidence of DVT in RT CFV, SFV, DFV, GSV, Pop V, or Post Tib. Rt Pern V difficult to obtain images of and unable to R/O DVT in vessels. Lt CFV and Prox SFV appear with out DVT. Initialized on 08/14/16 22:21 - END OF NOTE Critical care attestation.: If time is entered above; I have spent that time in minutes in the direct care of this critically ill patient, excluding procedure time. ED Disposition Clinical Impression: Right leg pain Disposition: DISCHARGED TO HOME OR SELFCARE Is pt being admited?: No Condition: Stable Prescriptions: Ibuprofen [Motrin] 600 mg PO Q8H PRN 5 Days PRN Reason: Pain Referrals: PRIMARY CARE, [Primary Care Provider] - 3-5 Days
[2016-08-14] MEDS ORDERED: MORPHINE IV ONE (21:08)
[2016-08-14 21:24] LABS: Basophils % (Auto) 1.2 % (0.0-1.8); Hematocrit 33.5 % (30.3-42.9); Mean Corpuscular HGB Conc 33 % (30-34); Mean Corpuscular Hemoglobin 28 pg (28-32); Mean Corpuscular Volume 86 fl (79-97); Platelet Count 252 K/mm3 (140-440); Red Blood Count 3.91 M/mm3 (3.65-5.03); Red Cell Distribution Width 13.7 % (13.2-15.2); White Blood Count 4.6 K/mm3 (4.5-11.0)
[2016-08-14 21:47] LABS: Alanine Aminotransferase 18 units/L (7-56); Albumin 3.9 g/dL (3.9-5); Albumin/Globulin Ratio 1.3 %; Alkaline Phosphatase 71 units/L (35-129); Anion Gap 16 mmol/L; Bilirubin,Total 0.3 mg/dL (0.1-1.2); Blood Urea Nitrogen 12 mg/dL (7-17); Calcium 9.5 mg/dL (8.4-10.2); Carbon Dioxide 26 mmol/L (22-30); Glucose 89 mg/dL (65-100); Potassium 4.4 mmol/L (3.6-5.0); Sodium 140 mmol/L (137-145); Total Protein 6.9 g/dL (6.3-8.2)
[2016-08-14] MEDS ORDERED: TORADOL IV ONE (23:17)
[2016-08-15 00:55] VITALS: BP 129/77
--- NOTE | 2016-08-15 09:52 | Vascular Lab Report ---
Right Lower Extremity Venous Duplex Study: Reason for Exam: Right leg pain. Comments on the Right: All veins visualized are freely compressible without evidence of internal echogenicity. Flow is spontaneous and phasic throughout. No evidence of acute or chronic thrombus is seen in any of the vessels visualized. Comments on the Left: A limited duplex study was done of the proximal veins of the left lower extremity. All veins visualized are freely compressible without evidence of internal echogenicity. Flow is spontaneous and phasic throughout. No evidence of acute or chronic thrombus is seen in any of the vessels visualized. Impression: No evidence of acute or chronic deep venous thrombosis in the right lower extremity.
== END 2016-08-15 00:50 | disposition home or self-care (01) ==
LOC: ED 17:51
DX: M79.661 Pain in right lower leg (principal); I10 Essential (primary) hypertension; I63.9 Cerebral infarction, unspecified; I25.2 Old myocardial infarction; F32.9 Major depressive disorder, single episode, unspecified; M32.9 Systemic lupus erythematosus, unspecified; Z79.82 Long term (current) use of aspirin
CPT/HCPCS: 36415; 80053; 84703; 85025; 93971; 96361; 96374; 96375; 99284; J1885; J2270; J7030

== ENCOUNTER 2016-10-12 18:53 | Emergency (ER) | payer MEDICARE, OTHER ==
[2016-10-12 19:44] LABS: Hematocrit 31.5 % (30.3-42.9); Hemoglobin 10.2 gm/dl (10.1-14.3); Mean Corpuscular HGB Conc 32 % (30-34); Mean Corpuscular Hemoglobin 27 pg (28-32); Mean Corpuscular Volume 83 fl (79-97); Platelet Count 282 K/mm3 (140-440); Red Blood Count 3.78 M/mm3 (3.65-5.03); Red Cell Distribution Width 14.2 % (13.2-15.2); White Blood Count 4.9 K/mm3 (4.5-11.0)
[2016-10-12 19:49] LABS: Anion Gap 19 mmol/L; BUN/Creatinine Ratio 11.66; Blood Urea Nitrogen 7 mg/dL (7-17); Calcium 9.3 mg/dL (8.4-10.2); Carbon Dioxide 25 mmol/L (22-30); Chloride 102.4 mmol/L (98-107); Glucose 92 mg/dL (65-100); Sodium 142 mmol/L (137-145)
[2016-10-12 20:04] LABS: Bilirubin,Urine NEG (Negative); Blood,Urine NEG (Negative); Ketones,Urine TR mg/dL (Negative); Leukocyte Esterase,Urine MOD (Negative); Mucus,Urine FEW /HPF; Nitrite,Urine NEG (Negative); Protein,Urine <15 mg/dL mg/dL (Negative); Urobilinogen,Urine < 2.0 mg/dL (<2.0)
[2016-10-12] MEDS ORDERED: ZOFRAN IM ONE (21:20)
[2016-10-12] MEDS ORDERED: MORPHINE IM ONE (21:20)
--- NOTE | 2016-10-12 21:26 | Emergency Department Report ---
HPI - General Chief Complaint: Pain General Time Seen by Provider: 10/12/16 21:14 - HPI HPI: Gtz 25 The patient is a 40-year-old female presenting with a chief complaint of body aches. The patient is a history of previous CVA with dysarthria. Patient states "all over.... Pain." Patient denies any recent trauma. Patient acknowledges the pain is consistent with body aches which she's had in the past. Patient denies any fever. Patient denies nausea vomiting, dysuria or hematuria. The patient requests Dilaudid Location: All over Duration: 2 days Quality: Body aches Severity: Moderate Modifying factors: [see above] Context: [see above] Mode of transportation: [not driving] ED Past Medical Hx - Past Medical History Previous Medical History?: Yes Hx Hypertension: Yes 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, dysphasia) Hx Heart Attack/AMI: Yes (stents) Hx Renal Disease: Yes Hx Headaches / Migraines: Yes Hx Seizures: Yes Hx Psychiatric Treatment: Yes (depression) Additional medical history: lupus, ambulates with assistance - Surgical History Past Surgical History?: Yes Hx Coronary Stent: Yes Hx Open Heart Surgery: Yes (stents) - Family History Family history: no significant - Social History Smoking Status: Former Smoker Substance Use Type: Alcohol, Prescribed - Medications Home Medications: Home Medications Medication Instructions Recorded Confirmed Last Taken Type Multivitamin-Mineral 1 tab PO DAILY 04/23/15 08/16/16 08/14/16 History Thiamine HCl [Vitamin B-1] 100 mg PO QDAY 08/16/16 08/16/16 Unknown History methOCARBAMOL [Robaxin TAB] 500 mg PO Q6H PRN 08/16/16 08/16/16 Unknown History Aspirin [Aspirin BABY CHEW TAB] 81 mg PO QDAY #30 tab.chew 08/20/16 Unknown Rx Bisacodyl [Dulcolax suppos] 10 mg [place] QDAY PRN #20 supp.rect 08/20/16 Unknown Rx Carvedilol [Coreg] 3.125 mg PO BID #60 tablet 08/20/16 Unknown Rx Chlorthalidone [Thalitone] 12.5 mg PO QDAY #15 tablet 08/20/16 Unknown Rx Clopidogrel [Plavix] 75 mg PO QDAY #30 tablet 08/20/16 Unknown Rx Fosinopril Sodium 40 mg PO DAILY #15 tablet 08/20/16 Unknown Rx Hydroxychloroquine [Plaquenil] 200 mg PO QDAY #30 tablet 08/20/16 Unknown Rx SUMAtriptan SUCCINATE [SUMAtriptan 50 mg PO Q6H PRN #20 tablet 08/20/16 Unknown Rx Succinate] Sertraline HCl [Zoloft] 100 mg PO QHS #60 tablet 08/20/16 Unknown Rx Simvastatin [Zocor TAB] 40 mg PO QHS #30 tablet 08/20/16 Unknown Rx levETIRAcetam [Keppra TAB] 500 mg PO BID #60 tablet 08/20/16 Unknown Rx traMADol [Ultram 50 MG tab] 100 mg PO TID PRN #30 tablet 08/20/16 Unknown Rx Sulfamethoxazole/Trimethoprim 1 each PO BID #14 tablet 10/12/16 Unknown Rx [Bactrim DS TAB] traMADol [Ultram] 50 mg PO Q6HR PRN #14 tablet 10/12/16 Unknown Rx ED Review of Systems ROS: Stated complaint: BODY PAIN Other details as noted in HPI Comment: All other systems reviewed and negative Constitutional: denies: chills, fever Eyes: denies: eye pain, eye discharge, vision change ENT: denies: ear pain, throat pain Respiratory: denies: cough, shortness of breath, wheezing Cardiovascular: denies: chest pain, palpitations Endocrine: no symptoms reported Gastrointestinal: denies: abdominal pain, nausea, diarrhea Genitourinary: denies: urgency, dysuria, discharge Musculoskeletal: myalgia Skin: denies: rash, lesions Neurological: denies: headache, weakness, paresthesias Psychiatric: denies: anxiety, depression Hematological/Lymphatic: denies: easy bleeding, easy bruising Physical Exam - Physical Exam Vital Signs: Vital Signs 10/12/16 10/12/16 18:58 20:15 Temperature 98.8 F 99.1 F Pulse Rate 98 H 96 H Respiratory 20 18 Rate Blood Pressure 157/90 Blood Pressure 139/89 [Left] O2 Sat by Pulse 100 98 Oximetry Physical Exam: GENERAL: The patient is well-developed well-nourished female lying on stretcher not appearing to be in acute distress. [] HEENT: Normocephalic. Atraumatic. NECK: Supple. Trachea midline CHEST/LUNGS: Clear to auscultation. There is no respiratory distress noted. HEART/CARDIOVASCULAR: Regular. There is no tachycardia. There is no gallop rub or murmur. ABDOMEN: Abdomen is soft, nontender. Patient has normal bowel sounds. There is no abdominal distention. SKIN: There is no rash. There is no edema. There is no diaphoresis. NEURO: The patient is awake, alert, and oriented. The patient is cooperative. MUSCULOSKELETAL: There is no evidence of acute injury. ED Course Vital Signs 10/12/16 10/12/16 18:58 20:15 Temperature 98.8 F 99.1 F Pulse Rate 98 H 96 H Respiratory 20 18 Rate Blood Pressure 157/90 Blood Pressure 139/89 [Left] O2 Sat by Pulse 100 98 Oximetry ED Medical Decision Making - Lab Data Result diagrams: 10/12/16 19:15 10/12/16 19:15 Laboratory Tests 10/12/16 10/12/16 10/12/16 19:15 19:15 19:42 WBC 4.9 RBC 3.78 Hgb 10.2 Hct 31.5 MCV 83 MCH 27 L MCHC 32 RDW 14.2 Plt Count 282 Sodium 142 Potassium 4.0 Chloride 102.4 Carbon Dioxide 25 Anion Gap 19 BUN 7 Creatinine 0.6 L Estimated GFR > 60 BUN/Creatinine Ratio 11.66 Glucose 92 Calcium 9.3 Urine Color Yellow Urine Turbidity Clear Urine pH 5.0 Ur Specific [place] 1.021 Urine Protein <15 mg/dl Urine Glucose (UA) Neg Urine Ketones Tr Urine Blood Neg Urine Nitrite Neg Urine Bilirubin Neg Urine Urobilinogen < 2.0 Ur Leukocyte Esterase Mod Urine WBC (Auto) 18.0 H Urine RBC (Auto) 3.0 U Epithel Cells (Auto) 5.0 Urine Mucus Few - Differential Diagnosis malingering, pyelonephritis, UTI, myalgias Critical care attestation.: If time is entered above; I have spent that time in minutes in the direct care of this critically ill patient, excluding procedure time. ED Disposition Clinical Impression: UTI (urinary tract infection), Myalgia Disposition: - TO HOME OR SELFCARE Is pt being admited?: No Does the pt Need Aspirin: No Condition: Stable Instructions: Urinary Tract Infection in Men (ED) Additional Instructions: Return to the emergency department immediately should you develop worsening symptoms, fever, inability to tolerate food or liquid or any other concerns. Prescriptions: Sulfamethoxazole/Trimethoprim [Bactrim DS TAB] 1 each PO BID #14 tablet traMADol [Ultram] 50 mg PO Q6HR PRN #14 tablet PRN Reason: Pain Referrals: PRIMARY CARE, [Primary Care Provider] - 3-5 Days Time of Disposition: 21:27
[2016-10-12 22:18] VITALS: BP 137/95
== END 2016-10-12 21:45 | disposition home or self-care (01) ==
LOC: ED 18:53
DX: N39.0 Urinary tract infection, site not specified (principal); M79.1 Myalgia; I10 Essential (primary) hypertension; Z86.73 Personal history of transient ischemic attack (TIA), and cerebral infarction without residual deficits; I25.2 Old myocardial infarction; R56.9 Unspecified convulsions; F32.9 Major depressive disorder, single episode, unspecified; Z87.891 Personal history of nicotine dependence; Z95.818 Presence of other cardiac implants and grafts
CPT/HCPCS: 36415; 80048; 81001; 85027; 96372; 99283; J2270; J2405

== ENCOUNTER 2017-02-25 22:25 | Inpatient (IN) | payer MEDICARE, OTHER ==
[2017-02-25] MEDS ORDERED: NARCAN 0.4 MG/1 ML ONE (22:56)
[2017-02-25] MEDS ORDERED: NARCAN 2 MG/2 ML ONE (22:59)
[2017-02-25] MEDS: NARCAN 0.4 MG/1 ML IV PRN ×4 (23:00→23:30)
--- NOTE | 2017-02-25 23:07 | XRay Report ---
FINAL REPORT EXAM: XR CHEST 1V AP HISTORY: Altered Mental Status COMPARISON: None available. FINDINGS: Frontal view(s) of the chest obtained. Heart upper limits normal in size. Shallow inspiration with crowding of bronchovascular markings. No gross consolidation or effusion. No pneumothorax. IMPRESSION: Shallow inspiration with crowding of bronchovascular markings. No gross consolidation or effusion.
[2017-02-25 23:24] LABS: Basophils % (Auto) 0.9 % (0.0-1.8); Eosinophils % (Auto) 4.2 % (0.0-4.3); Hematocrit 31.1 % (30.3-42.9); Hemoglobin 10.1 gm/dl (10.1-14.3); Mean Corpuscular HGB Conc 32 % (30-34); Mean Corpuscular Volume 77 fl (79-97); Platelet Count 256 K/mm3 (140-440); Red Blood Count 4.07 M/mm3 (3.65-5.03); Red Cell Distribution Width 15.8 % (13.2-15.2); White Blood Count 4.7 K/mm3 (4.5-11.0)
--- NOTE | 2017-02-25 23:34 | Emergency Department Report ---
ED Altered Mental Status HPI - General Chief Complaint: Altered Mental Status Stated Complaint: AMS Time Seen by Provider: 02/25/17 23:28 Source: EMS Mode of arrival: Stretcher Limitations: Altered Mental Status - History of Present Illness Initial Comments: 41 YO FEMALE FOUND AT HOME CRYING BY FAMILY AND EMS. PER EMS, SHE WAS GETTING MORE AND MORE UNRESPONSIVE THE TIME WENT BY. SHE HAD A "BAG" of medicine and family said she took them all. she has a h/o cva and paralysis and no longer ambulates but uses a wheel chair. pt was given 2mg of narcan IM and became a little more responsive per EMS. as they drove her to the hospital she beganto become more and more unresponsive. MD Complaint: altered mental status, decreased responsiveness -: Gradual Severity: severe Consistency of Symptoms: constant Context: drug abuse Associated Symptoms: denies other symptoms - Related Data Home Medications Medication Instructions Recorded Confirmed Last Taken Multivitamin-Mineral 1 tab PO DAILY 04/23/15 08/16/16 08/14/16 Thiamine HCl [Vitamin B-1] 100 mg PO QDAY 08/16/16 08/16/16 Unknown methOCARBAMOL [Robaxin TAB] 500 mg PO Q6H PRN 08/16/16 08/16/16 Unknown Previous Rx's Medication Instructions Recorded Last Taken Type Aspirin [Aspirin BABY CHEW TAB] 81 mg PO QDAY #30 tab.chew 08/20/16 Unknown Rx Bisacodyl [Dulcolax suppos] 10 mg [place] QDAY PRN #20 supp.rect 08/20/16 Unknown Rx Carvedilol [Coreg] 3.125 mg PO BID #60 tablet 08/20/16 Unknown Rx Chlorthalidone [Thalitone] 12.5 mg PO QDAY #15 tablet 08/20/16 Unknown Rx Clopidogrel [Plavix] 75 mg PO QDAY #30 tablet 08/20/16 Unknown Rx Fosinopril Sodium 40 mg PO DAILY #15 tablet 08/20/16 Unknown Rx Hydroxychloroquine [Plaquenil] 200 mg PO QDAY #30 tablet 08/20/16 Unknown Rx SUMAtriptan SUCCINATE [SUMAtriptan 50 mg PO Q6H PRN #20 tablet 08/20/16 Unknown Rx Succinate] Sertraline HCl [Zoloft] 100 mg PO QHS #60 tablet 08/20/16 Unknown Rx Simvastatin [Zocor TAB] 40 mg PO QHS #30 tablet 08/20/16 Unknown Rx levETIRAcetam [Keppra TAB] 500 mg PO BID #60 tablet 08/20/16 Unknown Rx traMADol [Ultram 50 MG tab] 100 mg PO TID PRN #30 tablet 08/20/16 Unknown Rx Sulfamethoxazole/Trimethoprim 1 each PO BID #14 tablet 10/12/16 Unknown Rx [Bactrim DS TAB] traMADol [Ultram] 50 mg PO Q6HR PRN #14 tablet 10/12/16 Unknown Rx Allergies Allergy/AdvReac Type Severity Reaction Status Date / Time No Known Allergies Allergy Verified 04/10/16 12:51 ED Review of Systems ROS: Stated complaint: AMS Other details as noted in HPI Constitutional: denies: chills, fever Eyes: denies: eye pain, eye discharge, vision change ENT: denies: ear pain, throat pain Respiratory: denies: cough, shortness of breath, wheezing Cardiovascular: denies: chest pain, palpitations Endocrine: no symptoms reported Gastrointestinal: denies: abdominal pain, nausea, diarrhea Genitourinary: denies: urgency, dysuria, discharge Musculoskeletal: denies: back pain, joint swelling, arthralgia Skin: denies: rash, lesions Neurological: denies: headache, weakness, paresthesias Psychiatric: depression. denies: anxiety Hematological/Lymphatic: denies: easy bleeding, easy bruising ED Past Medical Hx - Past Medical History Previous Medical History?: Yes Hx Hypertension: Yes 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, dysphasia) Hx Heart Attack/AMI: Yes (stents) Hx Congestive Heart Failure: No Hx Diabetes: No Hx Renal Disease: Yes Hx Arthritis: No Hx Headaches / Migraines: Yes Hx Seizures: Yes Hx Psychiatric Treatment: Yes (depression) Hx Asthma: No Hx COPD: No Additional medical history: lupus, ambulates with assistance - Surgical History Hx Coronary Stent: Yes Hx Open Heart Surgery: Yes (stents) - Social History Smoking Status: Unknown if ever smoked Substance Use Type: Other - Medications Home Medications: Home Medications Medication Instructions Recorded Confirmed Last Taken Type Multivitamin-Mineral 1 tab PO DAILY 04/23/15 08/16/16 08/14/16 History Thiamine HCl [Vitamin B-1] 100 mg PO QDAY 08/16/16 08/16/16 Unknown History methOCARBAMOL [Robaxin TAB] 500 mg PO Q6H PRN 08/16/16 08/16/16 Unknown History Aspirin [Aspirin BABY CHEW TAB] 81 mg PO QDAY #30 tab.chew 08/20/16 Unknown Rx Bisacodyl [Dulcolax suppos] 10 mg [place] QDAY PRN #20 supp.rect 08/20/16 Unknown Rx Carvedilol [Coreg] 3.125 mg PO BID #60 tablet 08/20/16 Unknown Rx Chlorthalidone [Thalitone] 12.5 mg PO QDAY #15 tablet 08/20/16 Unknown Rx Clopidogrel [Plavix] 75 mg PO QDAY #30 tablet 08/20/16 Unknown Rx Fosinopril Sodium 40 mg PO DAILY #15 tablet 08/20/16 Unknown Rx Hydroxychloroquine [Plaquenil] 200 mg PO QDAY #30 tablet 08/20/16 Unknown Rx SUMAtriptan SUCCINATE [SUMAtriptan 50 mg PO Q6H PRN #20 tablet 08/20/16 Unknown Rx Succinate] Sertraline HCl [Zoloft] 100 mg PO QHS #60 tablet 08/20/16 Unknown Rx Simvastatin [Zocor TAB] 40 mg PO QHS #30 tablet 08/20/16 Unknown Rx levETIRAcetam [Keppra TAB] 500 mg PO BID #60 tablet 08/20/16 Unknown Rx traMADol [Ultram 50 MG tab] 100 mg PO TID PRN #30 tablet 08/20/16 Unknown Rx Sulfamethoxazole/Trimethoprim 1 each PO BID #14 tablet 10/12/16 Unknown Rx [Bactrim DS TAB] traMADol [Ultram] 50 mg PO Q6HR PRN #14 tablet 10/12/16 Unknown Rx ED Physical Exam - General Limitations: Language Barrier (dysarthria from previous cva), Altered Mental Status General appearance: alert, in no apparent distress - Head Head exam: Present: atraumatic, normocephalic - Eye Eye exam: Present: normal appearance, EOMI Pupils: Present: miosis (pin point) - ENT ENT exam: Present: mucous membranes moist, other (multiple missing teeth) - Neck Neck exam: Present: normal inspection - Respiratory Respiratory exam: Present: normal lung sounds bilaterally. Absent: respiratory distress - Cardiovascular Cardiovascular Exam: Present: regular rate, normal rhythm. Absent: systolic murmur, diastolic murmur, rubs, gallop - GI/Abdominal GI/Abdominal exam: Present: soft, normal bowel sounds, other (large centripital fat) - Rectal Rectal exam: Present: deferred - Extremities Exam Extremities exam: Absent: full ROM (right upper extremity paralysis) - Expanded Upper Extremity Exam Right Shoulder Exam: Present: deformity Upper Arm exam: Absent: full ROM (paralysis) - Expanded Lower Extremity Exam Right Upper Leg exam: Absent: full ROM (right lower extremity paral;ysis) Neuro vascular tendon exam: Present: motor deficit (right sided), foot drop ( right foot) Gait: Positive: unable to bear weight (paralysis from cva) - Back Exam Back exam: Present: normal inspection - Neurological Exam Neurological exam: Present: alert, altered, abnormal gait (unable to walk secondary to prior cva) - Psychiatric Psychiatric exam: Present: normal affect, normal mood - Skin Skin exam: Present: warm, dry, intact, normal color. Absent: rash ED Course Vital Signs 02/25/17 02/25/17 02/25/17 22:31 22:35 22:46 Temperature 98.1 F Pulse Rate 72 72 Respiratory 18 18 20 Rate Blood Pressure 131/62 131/62 Blood Pressure 131/62 [Right] O2 Sat by Pulse 94 94 97 Oximetry 02/25/17 02/25/17 02/25/17 23:00 23:16 23:30 Temperature Pulse Rate 73 72 77 Respiratory 19 18 14 Rate Blood Pressure 129/76 129/76 135/69 Blood Pressure [Right] O2 Sat by Pulse 94 99 100 Oximetry 02/25/17 02/26/17 02/26/17 23:46 00:00 00:16 Temperature Pulse Rate 73 73 71 Respiratory 18 18 18 Rate Blood Pressure 135/69 128/83 128/83 Blood Pressure [Right] O2 Sat by Pulse 99 99 99 Oximetry 02/26/17 02/26/17 00:30 04:00 Temperature Pulse Rate 70 Respiratory 18 18 Rate Blood Pressure 121/81 Blood Pressure [Right] O2 Sat by Pulse 100 Oximetry - Reevaluation(s) Reevaluation #1: 02/26/17 04:10 Pt more arousable and asking for dilaudid pain medication Reevaluation #2: 02/26/17 04:14 Narcan did not significantly wake up pt. She was given narcan in small aliquots of 0.4mg iv to a total of 2mg - Lab Data Result diagrams: 02/25/17 23:01 02/25/17 23:01 Lab Results 02/25/17 02/25/17 02/25/17 Range/Units 22:42 22:42 22:42 WBC (4.5-11.0) K/mm3 RBC (3.65-5.03) M/mm3 Hgb (10.1-14.3) gm/dl Hct (30.3-42.9) % MCV (79-97) fl MCH (28-32) pg MCHC (30-34) % RDW (13.2-15.2) % Plt Count (140-440) K/mm3 Lymph % (Auto) (13.4-35.0) % [place] % (Auto) (0.0-7.3) % Eos % (Auto) (0.0-4.3) % Baso % (Auto) (0.0-1.8) % Lymph # (1.2-5.4) K/mm3 [place] # (0.0-0.8) K/mm3 Eos # (0.0-0.4) K/mm3 Baso # (0.0-0.1) K/mm3 Seg Neutrophils % (40.0-70.0) % Seg Neutrophils # (1.8-7.7) K/mm3 Sodium (137-145) mmol/L Potassium (3.6-5.0) mmol/L Chloride (98-107) mmol/L Carbon Dioxide (22-30) mmol/L Anion Gap mmol/L BUN (7-17) mg/dL Creatinine (0.7-1.2) mg/dL Estimated GFR ml/min BUN/Creatinine Ratio % Glucose (65-100) mg/dL POC Glucose 189 H (70-105) Lactic Acid (0.7-2.0) mmol/L Calcium (8.4-10.2) mg/dL Total Bilirubin (0.1-1.2) mg/dL AST (5-40) units/L ALT (7-56) units/L Alkaline Phosphatase (35-129) units/L Total Creatine Kinase (30-135) units/L CK-MB (CK-2) (0.0-4.0) ng/mL CK-MB (CK-2) Rel Index (0-4) Troponin T (0.00-0.029) ng/mL NT-Pro-B Natriuret Pep (0-450) pg/mL Total Protein (6.3-8.2) g/dL Albumin (3.9-5) g/dL Albumin/Globulin Ratio % Urine Color Yellow (Yellow) Urine Turbidity Clear (Clear) Urine pH 5.0 (5.0-7.0) Ur Specific [place] 1.017 (1.003-1.030) Urine Protein <15 mg/dl (Negative) mg/dL Urine Glucose (UA) Neg (Negative) mg/dL Urine Ketones Neg (Negative) mg/dL Urine Blood Neg (Negative) Urine Nitrite Neg (Negative) Urine Bilirubin Neg (Negative) Urine Urobilinogen < 2.0 (<2.0) mg/dL Ur Leukocyte Esterase Neg (Negative) Urine WBC (Auto) 2.0 (0.0-6.0) /HPF Urine RBC (Auto) < 1.0 (0.0-6.0) /HPF U Epithel Cells (Auto) 1.0 (0-13.0) /HPF Urine Mucus Few /HPF Urine HCG, Qual (Negative) Salicylates (2.8-20.0) mg/dL Urine Opiates Screen Presumptive negative Urine Methadone Screen Presumptive negative Acetaminophen (10.0-30.0) ug/mL Ur Barbiturates Screen Presumptive negative Ur Phencyclidine Scrn Presumptive negative Ur Amphetamines Screen Presumptive negative U Benzodiazepines Scrn Presumptive negative Urine Cocaine Screen Presumptive negative U Marijuana (THC) Screen Presumptive negative Drugs of Abuse Note Disclamer 02/25/17 02/25/17 02/25/17 Range/Units 22:42 23:01 23:01 WBC 4.7 (4.5-11.0) K/mm3 RBC 4.07 (3.65-5.03) M/mm3 Hgb 10.1 (10.1-14.3) gm/dl Hct 31.1 (30.3-42.9) % MCV 77 L (79-97) fl MCH 25 L (28-32) pg MCHC 32 (30-34) % RDW 15.8 H (13.2-15.2) % Plt Count 256 (140-440) K/mm3 Lymph % (Auto) 19.5 (13.4-35.0) % [place] % (Auto) 8.6 H (0.0-7.3) % Eos % (Auto) 4.2 (0.0-4.3) % Baso % (Auto) 0.9 (0.0-1.8) % Lymph # 0.9 L (1.2-5.4) K/mm3 [place] # 0.4 (0.0-0.8) K/mm3 Eos # 0.2 (0.0-0.4) K/mm3 Baso # 0.0 (0.0-0.1) K/mm3 Seg Neutrophils % 66.8 (40.0-70.0) % Seg Neutrophils # 3.2 (1.8-7.7) K/mm3 Sodium 135 L (137-145) mmol/L Potassium 4.0 (3.6-5.0) mmol/L Chloride 96.5 L (98-107) mmol/L Carbon Dioxide 26 (22-30) mmol/L Anion Gap 17 mmol/L BUN 8 (7-17) mg/dL Creatinine 0.7 (0.7-1.2) mg/dL Estimated GFR > 60 ml/min BUN/Creatinine Ratio 11 % Glucose 132 H (65-100) mg/dL POC Glucose (70-105) Lactic Acid (0.7-2.0) mmol/L Calcium 9.5 (8.4-10.2) mg/dL Total Bilirubin 0.30 (0.1-1.2) mg/dL AST 17 (5-40) units/L ALT 15 (7-56) units/L Alkaline Phosphatase 77 (35-129) units/L Total Creatine Kinase (30-135) units/L CK-MB (CK-2) (0.0-4.0) ng/mL CK-MB (CK-2) Rel Index (0-4) Troponin T (0.00-0.029) ng/mL NT-Pro-B Natriuret Pep (0-450) pg/mL Total Protein 7.9 (6.3-8.2) g/dL Albumin 4.2 (3.9-5) g/dL Albumin/Globulin Ratio 1.1 % Urine Color (Yellow) Urine Turbidity (Clear) Urine pH (5.0-7.0) Ur Specific [place] (1.003-1.030) Urine Protein (Negative) mg/dL Urine Glucose (UA) (Negative) mg/dL Urine Ketones (Negative) mg/dL Urine Blood (Negative) Urine Nitrite (Negative) Urine Bilirubin (Negative) Urine Urobilinogen (<2.0) mg/dL Ur Leukocyte Esterase (Negative) Urine WBC (Auto) (0.0-6.0) /HPF Urine RBC (Auto) (0.0-6.0) /HPF U Epithel Cells (Auto) (0-13.0) /HPF Urine Mucus /HPF Urine HCG, Qual Negative (Negative) Salicylates (2.8-20.0) mg/dL Urine Opiates Screen Urine Methadone Screen Acetaminophen (10.0-30.0) ug/mL Ur Barbiturates Screen Ur Phencyclidine Scrn Ur Amphetamines Screen U Benzodiazepines Scrn Urine Cocaine Screen U Marijuana (THC) Screen Drugs of Abuse Note 02/25/17 02/25/17 02/25/17 Range/Units 23:01 23:01 23:01 WBC (4.5-11.0) K/mm3 RBC (3.65-5.03) M/mm3 Hgb (10.1-14.3) gm/dl Hct (30.3-42.9) % MCV (79-97) fl MCH (28-32) pg MCHC (30-34) % RDW (13.2-15.2) % Plt Count (140-440) K/mm3 Lymph % (Auto) (13.4-35.0) % [place] % (Auto) (0.0-7.3) % Eos % (Auto) (0.0-4.3) % Baso % (Auto) (0.0-1.8) % Lymph # (1.2-5.4) K/mm3 [place] # (0.0-0.8) K/mm3 Eos # (0.0-0.4) K/mm3 Baso # (0.0-0.1) K/mm3 Seg Neutrophils % (40.0-70.0) % Seg Neutrophils # (1.8-7.7) K/mm3 Sodium (137-145) mmol/L Potassium (3.6-5.0) mmol/L Chloride (98-107) mmol/L Carbon Dioxide (22-30) mmol/L Anion Gap mmol/L BUN (7-17) mg/dL Creatinine (0.7-1.2) mg/dL Estimated GFR ml/min BUN/Creatinine Ratio % Glucose (65-100) mg/dL POC Glucose (70-105) Lactic Acid 1.30 (0.7-2.0) mmol/L Calcium (8.4-10.2) mg/dL Total Bilirubin (0.1-1.2) mg/dL AST (5-40) units/L ALT (7-56) units/L Alkaline Phosphatase (35-129) units/L Total Creatine Kinase 141 H (30-135) units/L CK-MB (CK-2) (0.0-4.0) ng/mL CK-MB (CK-2) Rel Index (0-4) Troponin T < 0.010 (0.00-0.029) ng/mL NT-Pro-B Natriuret Pep (0-450) pg/mL Total Protein (6.3-8.2) g/dL Albumin (3.9-5) g/dL Albumin/Globulin Ratio % Urine Color (Yellow) Urine Turbidity (Clear) Urine pH (5.0-7.0) Ur Specific [place] (1.003-1.030) Urine Protein (Negative) mg/dL Urine Glucose (UA) (Negative) mg/dL Urine Ketones (Negative) mg/dL Urine Blood (Negative) Urine Nitrite (Negative) Urine Bilirubin (Negative) Urine Urobilinogen (<2.0) mg/dL Ur Leukocyte Esterase (Negative) Urine WBC (Auto) (0.0-6.0) /HPF Urine RBC (Auto) (0.0-6.0) /HPF U Epithel Cells (Auto) (0-13.0) /HPF Urine Mucus /HPF Urine HCG, Qual (Negative) Salicylates < 0.3 L (2.8-20.0) mg/dL Urine Opiates Screen Urine Methadone Screen Acetaminophen (10.0-30.0) ug/mL Ur Barbiturates Screen Ur Phencyclidine Scrn Ur Amphetamines Screen U Benzodiazepines Scrn Urine Cocaine Screen U Marijuana (THC) Screen Drugs of Abuse Note 10/29/17 10/29/17 10/29/17 Range/Units 23:01 23:58 23:58 WBC (4.5-11.0) K/mm3 RBC (3.65-5.03) M/mm3 Hgb (10.1-14.3) gm/dl Hct (30.3-42.9) % MCV (79-97) fl MCH (28-32) pg MCHC (30-34) % RDW (13.2-15.2) % Plt Count (140-440) K/mm3 Lymph % (Auto) (13.4-35.0) % [place] % (Auto) (0.0-7.3) % Eos % (Auto) (0.0-4.3) % Baso % (Auto) (0.0-1.8) % Lymph # (1.2-5.4) K/mm3 [place] # (0.0-0.8) K/mm3 Eos # (0.0-0.4) K/mm3 Baso # (0.0-0.1) K/mm3 Seg Neutrophils % (40.0-70.0) % Seg Neutrophils # (1.8-7.7) K/mm3 Sodium (137-145) mmol/L Potassium (3.6-5.0) mmol/L Chloride (98-107) mmol/L Carbon Dioxide (22-30) mmol/L Anion Gap mmol/L BUN (7-17) mg/dL Creatinine (0.7-1.2) mg/dL Estimated GFR ml/min BUN/Creatinine Ratio % Glucose (65-100) mg/dL POC Glucose (70-105) Lactic Acid (0.7-2.0) mmol/L Calcium (8.4-10.2) mg/dL Total Bilirubin (0.1-1.2) mg/dL AST (5-40) units/L ALT (7-56) units/L Alkaline Phosphatase (35-129) units/L Total Creatine Kinase 138 H (30-135) units/L CK-MB (CK-2) 2.4 (0.0-4.0) ng/mL CK-MB (CK-2) Rel Index 1.7 (0-4) Troponin T < 0.010 (0.00-0.029) ng/mL NT-Pro-B Natriuret Pep 36.63 (0-450) pg/mL Total Protein (6.3-8.2) g/dL Albumin (3.9-5) g/dL Albumin/Globulin Ratio % Urine Color (Yellow) Urine Turbidity (Clear) Urine pH (5.0-7.0) Ur Specific [place] (1.003-1.030) Urine Protein (Negative) mg/dL Urine Glucose (UA) (Negative) mg/dL Urine Ketones (Negative) mg/dL Urine Blood (Negative) Urine Nitrite (Negative) Urine Bilirubin (Negative) Urine Urobilinogen (<2.0) mg/dL Ur Leukocyte Esterase (Negative) Urine WBC (Auto) (0.0-6.0) /HPF Urine RBC (Auto) (0.0-6.0) /HPF U Epithel Cells (Auto) (0-13.0) /HPF Urine Mucus /HPF Urine HCG, Qual (Negative) Salicylates (2.8-20.0) mg/dL Urine Opiates Screen Urine Methadone Screen Acetaminophen < 15.0 (10.0-30.0) ug/mL Ur Barbiturates Screen Ur Phencyclidine Scrn Ur Amphetamines Screen U Benzodiazepines Scrn Urine Cocaine Screen U Marijuana (THC) Screen Drugs of Abuse Note - EKG Data EKG shows normal: sinus rhythm, axis, intervals (shortened), QRS complexes Rate: normal When compared to previous EKG there are: no significant change Interpretation: no acute changes - Radiology Data Radiology results: report reviewed (shallow inspiratory effort, rest negative) Critical Care Time: Yes Critical care time in (mins) excluding proc time.: 30 Critical care attestation.: If time is entered above; I have spent that time in minutes in the direct care of this critically ill patient, excluding procedure time. Critical Care Time: 30minutes ED Disposition Clinical Impression: Altered mental status Disposition: DC-09 OP ADMIT IP TO THIS HOSP Is pt being admited?: Yes Does the pt Need Aspirin: No Condition: Serious Referrals: PRIMARY CARE, [Primary Care Provider] - 3-5 Days Time of Disposition: 04:02 (case reviewed with Dr Sprague and he will admit the pt to the hospital)
[2017-02-25 23:45] LABS: Urine Drugs of Abuse Note Disclamer
[2017-02-25 23:47] LABS: Creatine Kinase 141 units/L (30-135); Mean Corpuscular Hemoglobin 25 pg (28-32)
[2017-02-26 00:09] LABS: Bilirubin,Urine NEG (Negative); Blood,Urine NEG (Negative); Ketones,Urine NEG (Negative); Leukocyte Esterase,Urine NEG (Negative); Mucus,Urine FEW /HPF; Nitrite,Urine NEG (Negative); Protein,Urine <15 mg/dL mg/dL (Negative); RBC,Urine < 1.0 /HPF (0.0-6.0); Urobilinogen,Urine < 2.0 mg/dL (<2.0)
[2017-02-26 00:40] LABS: Creatine Kinase MB 2.4 ng/mL (0.0-4.0)
[2017-02-26 00:43] LABS: Creatine Kinase 138 units/L (30-135)
[2017-02-26 01:48] LABS: Alanine Aminotransferase 15 units/L (7-56); Albumin 4.2 g/dL (3.9-5); Albumin/Globulin Ratio 1.1 %; Alkaline Phosphatase 77 units/L (35-129); Anion Gap 17 mmol/L; BUN/Creatinine Ratio 11; Blood Urea Nitrogen 8 mg/dL (7-17); Calcium 9.5 mg/dL (8.4-10.2); Carbon Dioxide 26 mmol/L (22-30); Chloride 96.5 mmol/L (98-107); Glucose 132 mg/dL (65-100); Sodium 135 mmol/L (137-145); Total Protein 7.9 g/dL (6.3-8.2)
--- NOTE | 2017-02-26 01:49 | Cat Scan Report ---
FINAL REPORT EXAM: CT HEAD/BRAIN WO CON HISTORY: Altered Mental Status COMPARISON: CT of the head from August 17, 2016. TECHNIQUE: Axial images obtained skull base through vertex. FINDINGS: No acute intracranial hemorrhage, midline shift or pathologic extra axial fluid collection. Stable remote left large MCA distribution infarct. Prominent cystic encephalomalacia involving the left frontal, parietal and temporal lobes with ex vacuo dilatation of the left lateral ventricle. There is some calcification of remaining cortex at the superior margin of the left cerebral hemisphere. Volume loss of the left midbrain and marva compatible with layering degeneration. Otherwise, hahn-white differentiation preserved. Calvarium grossly intact. Visualized orbits are grossly unremarkable. Visualized para-nasal sinuses and mastoid air cells are clear. IMPRESSION: No grossly acute intracranial abnormality. Stable remote large MCA distribution infarct.
[2017-02-26] MEDS ORDERED: TORADOL IV ONE ×2 (03:54→18:05)
[2017-02-26] MEDS ORDERED: ZOFRAN IV PRN (05:27)
[2017-02-26 06:27] LABS: Creatine Kinase MB 2.3 ng/mL (0.0-4.0)
[2017-02-26 06:28] LABS: Creatine Kinase 143 units/L (30-135)
[2017-02-26] MEDS ORDERED: DULCOLAX PR PRN (06:31)
[2017-02-26] MEDS ORDERED: ROBAXIN PO PRN (06:31)
[2017-02-26] MEDS ORDERED: MULTIVITAMIN MINERAL PO SCH (10:00)
[2017-02-26] MEDS ORDERED: FOSINOPRIL SODIUM 40 MG PO SCH (10:00)
--- NOTE | 2017-02-26 12:32 | History and Physical Report ---
History of Present Illness Date of examination: 02/26/17 Date of admission: 02/26/17 05:20 Chief complaint: NEUROLOGY CONSULTATION NOTE CC: I am asked to see this 41 yo AA female for altered state of arousal yesterday, now resolved. HPI: the patient has an Hx of a massive left MCA infarct (CT images reviewed), which she says occurred this year some four months ago. this has left her severely aphasic and with right hemiplegia, with her right arm in tight decorticate posture, right hand fisted, and right leg in rigid extension. she also has had severe depression and has been treated by a psychiatrist for this. she lives with her daughter. Yesterday her family found her weeping, apparently, and with altered awareness. EMS was summoned and found her "with a bag of medications". She was brought to the ED. Narcan was only minimally effective and only for a short while apparently. A tox screen of street drugs including opiates was "presumably negative" (whatever that means). She was admitted for further evaluation. Today she is bright, very alert and cooperative. There is no hx of new focal neuro sx. A C-doppler shows 50 - 790 % stenosis of the RIGHT ICA, no sig stenosis of the left ICA and anterograde vertebral artery flow on both sides. ROS - done with difficulty as patient is severely aphasic, but an 11 point ROS is negative SH/FH not re-reviewed MEDS/ALLERGIES - see chart EXAM alert, cooperative, in no acute distress HEENT - normal save for left UMN facial deficit Neck - supple, no bruits Lung - clear to A Cor - no m, rubs Abd - soft, BS no Extrem - no evidence of trauma, warm, well perfused (+ see neuro exam) NEURO EXAM MS - patient is alert, severely aphasic, but cooperative and does the best she can. She is oriented to "hospital", "2017", "[place]", cannot show me two fingers with her good left hand and arm, does lift her left leg on command, does provide resistance on muscle testing, can say "one two three", can say "he and she", but not "he and she and we" on command. CN - 2 - 12 nl save for right UMN facial deficit MOT - right hemiplegia, with right arm rigid in decorticate posture with right hand fisted, right leg rigid in extention witn not motion on right side whatsoever. left side 5/5 UE adn LE proximally and distally. SENS - does not feel touch over right face arm leg at all, nl on left side DTRs - 2+ right and left biceps, 2+ both knees, absent AJs, great toes moot to plantar stim GAIT - not possible DX IMP: 1. Severe remote left MCA distribution infarct, with severe mixed (receptive and expressive) aphasia, and dense right hemiplegia. 2. Depression secondary to the above, with likely inadvertent (vs deliberate) excessive med intake..? Keppra (which can make one sleepy), and altered awareness on this basis (given hx, more likely than unwitnessed Sz), now resolved. 3. Other dxs as above. RECC: 1. Have Social Service/ case management review patients living circumstances and supervision at home. Patient obviously cannot walk, cannot get into a wheelchair by herself, and needs help. 2. Get a Keppra level...where are we re levels and doses?. 3. Get EEG. 3. See no need for further neuro work up at this time beyond the above. 4. Is she on an antidepressant?. Needs to be. Yuliya Warren MD Medications and Allergies Allergies Allergy/AdvReac Type Severity Reaction Status Date / Time No Known Allergies Allergy Verified 04/10/16 12:51 Home Medications Medication Instructions Recorded Confirmed Last Taken Type Aspirin [Aspirin BABY CHEW TAB] 81 mg PO QDAY #30 tab.chew 08/20/16 02/26/17 3 Days Ago Rx Carvedilol [Coreg] 3.125 mg PO BID #60 tablet 08/20/16 02/26/17 3 Days Ago Rx Clopidogrel [Plavix] 75 mg PO QDAY #30 tablet 08/20/16 02/26/17 3 Days Ago Rx SUMAtriptan SUCCINATE [SUMAtriptan 50 mg PO Q6H PRN #20 tablet 08/20/16 3 Days Ago Rx Succinate] Sertraline HCl [Zoloft] 100 mg PO QHS #60 tablet 08/20/16 02/26/17 3 Days Ago Rx Simvastatin [Zocor TAB] 40 mg PO QHS #30 tablet 08/20/16 02/26/17 3 Days Ago Rx levETIRAcetam [Keppra TAB] 500 mg PO BID #60 tablet 08/20/16 02/26/17 3 Days Ago Rx Active Meds: Active Medications Aspirin (Baby Aspirin) 81 mg PO QDAY [facility] Bisacodyl (Dulcolax) 10 mg ID QDAY PRN PRN Reason: Constipation unrelieved by MOM Carvedilol (Coreg) 3.125 mg PO BID [facility] Chlorthalidone (Thalitone) 12.5 mg PO QDAY [facility] Clopidogrel Bisulfate (Plavix) 75 mg PO QDAY [facility] Hydroxychloroquine Sulfate (Plaquenil) 200 mg PO QDAY [facility] Levetiracetam (Keppra) 500 mg PO BID [facility] Lisinopril (Zestril) 40 mg PO QDAY [facility] Methocarbamol (Robaxin) 500 mg PO Q6H PRN PRN Reason: muscle spasms Multivitamins/Minerals (Theragran-M Tab) 1 each PO QDAY [facility] Naloxone HCl (Narcan 0.4 Mg/1 Ml) 0.4 mg IV Q2MIN PRN PRN Reason: Res Rate </= 8 or 02 SAT < 92% Last Admin: 02/25/17 23:30 Dose: 0.4 mg Ondansetron HCl (Zofran) 4 mg IV Q8H PRN PRN Reason: Nausea And Vomiting Sertraline HCl (Zoloft) 100 mg PO QHS [facility] Physical Examination - Vital Signs Vital Signs: Vital Signs Temp Pulse Resp BP Pulse Ox 98.1 F 72 18 131/62 94 02/25/17 22:31 02/25/17 22:31 02/25/17 22:31 02/25/17 22:31 02/25/17 22:31 Results - Laboratory Findings CBC and BMP: 02/25/17 23:01 02/25/17 23:01 Abnormal Lab Findings: Abnormal Labs 02/26/17 05:40 Total Creatine Kinase 143 H
--- NOTE | 2017-02-26 13:04 | Progress Note ---
Assessment and Plan Assessment and plan: Patient is a unfortunate 41-year-old woman with a history of CVA with right- sided hemiplegia, wheelchair bound, dysarthria, hypertension, seizure disorder, coronary artery disease with cardiac stent, migraine, SLE and depression who presents with altered mental status. Urinalysis is unremarkable, chest x-ray unremarkable, CT head without contrast read as no acute finding but stable remote large MCA distribution infarct. Seen by neurologist, "DX IMP: 1. Severe remote left MCA distribution infarct, with severe mixed (receptive and expressive) aphasia, and dense right hemiplegia. 2. Depression secondary to the above, with likely inadvertent (vs deliberate) excessive med intake..? Keppra ( which can make one sleepy), and altered awareness on this basis (given hx, more likely than unwitnessed Sz), now resolved. 3. Other dxs as above. RECC: 1. Have Social Service/ case management review patients living circumstances and supervision at home. Patient obviously cannot walk, cannot get into a wheelchair by herself, and needs help. 2. Get a Keppra level...where are we re levels and doses?. 3. Get EEG. 3. See no need for further neuro work up at this time beyond the above. 4. Is she on an antidepressant?. Needs to be. Yuliya Warren MD" -Acute encephalopathy most likely due to the above -Late effect of CVA: Supportive care -Seizure disorder: EEG pending an MRI of brain pending, on Keppra -Depression: zoloft -DVT prophylaxis: Added subcutaneous heparin MRI pending, EEG pending possibly discharged in a.m. History Interval history: Patient was seen and examined. Follow-up on current diagnosis/ams. Overnight uneventful. Nonverbal. Imaging, nursing note, chart, labs and old chart reviewed. Discussed with patient. Hospitalist Physical - Physical exam Narrative exam: GEN: WDWN, BMI 38 NAD, AWAKE, ALERT, ORIENTATED 2 HEENT: NCAT, EOMI, PERRL, OP Clear NECK: supple, no adenopathy, no thyromegaly, no JVD CVS/HEART: RRR, NORMAL S1S2, NO JVD, pulses present bilaterally CHEST/LUNGS: CTA B, Symmetrical chest expansion, good air entry bilaterally GI/Abdomen: soft, NTND, good bowel sounds, no guarding or rebound /Bladder: no suprapubic tenderness, no CVA or paraspinal tenderness EXT/Skin: no c/c/e, no obvious rash MSK: Right hemiplegia Neuro: CN 2-12 grossly intact, no new focal deficits Psych: calm - Constitutional Vitals: Temp Pulse Resp BP Pulse Ox 98.1 F 66 9 L 107/66 99 02/25/17 22:31 02/26/17 08:30 02/26/17 08:30 02/26/17 08:30 02/26/17 08:30 Results - Labs CBC & Chem 7: 02/25/17 23:01 02/25/17 23:01 Labs: Laboratory Last Values WBC 4.7 K/mm3 (4.5-11.0) 02/25/17 23:01 RBC 4.07 M/mm3 (3.65-5.03) 02/25/17 23:01 Hgb 10.1 gm/dl (10.1-14.3) 02/25/17 23:01 Hct 31.1 % (30.3-42.9) 02/25/17 23:01 MCV 77 fl (79-97) L 02/25/17 23:01 MCH 25 pg (28-32) L 02/25/17 23:01 MCHC 32 % (30-34) 02/25/17 23:01 RDW 15.8 % (13.2-15.2) H 02/25/17 23:01 Plt Count 256 K/mm3 (140-440) 02/25/17 23:01 Lymph % (Auto) 19.5 % (13.4-35.0) 02/25/17 23:01 [place] % (Auto) 8.6 % (0.0-7.3) H 02/25/17 23:01 Eos % (Auto) 4.2 % (0.0-4.3) 02/25/17 23:01 Baso % (Auto) 0.9 % (0.0-1.8) 02/25/17 23:01 Lymph # 0.9 K/mm3 (1.2-5.4) L 02/25/17 23:01 [place] # 0.4 K/mm3 (0.0-0.8) 02/25/17 23:01 Eos # 0.2 K/mm3 (0.0-0.4) 02/25/17 23:01 Baso # 0.0 K/mm3 (0.0-0.1) 02/25/17 23:01 Seg Neutrophils % 66.8 % (40.0-70.0) 02/25/17 23: Seg Neutrophils # 3.2 K/mm3 (1.8-7.7) 02/25/17 23:01 Sodium 135 mmol/L (137-145) L 02/25/17 23: Potassium 4.0 mmol/L (3.6-5.0) 02/25/17 23:01 Chloride 96.5 mmol/L (98-107) L 02/25/17 23:01 Carbon Dioxide 26 mmol/L (22-30) 02/25/17 23:01 Anion Gap 17 mmol/L 02/25/17 23:01 BUN 8 mg/dL (7-17) 02/25/17 23: Creatinine 0.7 mg/dL (0.7-1.2) 02/25/17 23:01 Estimated GFR > 60 ml/min 02/25/17 23:01 BUN/Creatinine Ratio 11 % 02/25/17 23:01 Glucose 132 mg/dL (65-100) H 02/25/17 23:01 POC Glucose 189 (70-105) H 02/25/17 22:42 Lactic Acid 1.30 mmol/L (0.7-2.0) 02/25/17 23: Calcium 9.5 mg/dL (8.4-10.2) 02/25/17 23:01 Total Bilirubin 0.30 mg/dL (0.1-1.2) 02/25/17 23:01 AST 17 units/L (5-40) 02/25/17 23:01 ALT 15 units/L (7-56) 02/25/17 23:01 Alkaline Phosphatase 77 units/L (35-129) 02/25/17 23:01 Total Creatine Kinase 143 units/L (30-135) H 02/26/17 05:40 CK-MB (CK-2) 2.3 ng/mL (0.0-4.0) 02/26/17 05:40 CK-MB (CK-2) Rel Index 1.6 (0-4) 02/26/17 05:40 Troponin T < 0.010 ng/mL (0.00-0.029) 02/26/17 05:40 NT-Pro-B Natriuret Pep 36.63 pg/mL (0-450) 02/25/17 23:58 Total Protein 7.9 g/dL (6.3-8.2) 02/25/17 23:01 Albumin 4.2 g/dL (3.9-5) 02/25/17 23:01 Albumin/Globulin Ratio 1.1 % 02/25/17 23:01 Urine Color Yellow (Yellow) 02/25/17 22:42 Urine Turbidity Clear (Clear) 02/25/17 22:42 Urine pH 5.0 (5.0-7.0) 02/25/17 22:42 Ur Specific [place] 1.017 (1.003-1.030) 02/25/17 22:42 Urine Protein <15 mg/dl mg/dL (Negative) 02/25/17 22:42 Urine Glucose (UA) Neg mg/dL (Negative) 02/25/17 22:42 Urine Ketones Neg mg/dL (Negative) 02/25/17 22:42 Urine Blood Neg (Negative) 02/25/17 22:42 Urine Nitrite Neg (Negative) 02/25/17 22:42 Urine Bilirubin Neg (Negative) 02/25/17 22:42 Urine Urobilinogen < 2.0 mg/dL (<2.0) 02/25/17 22:42 Ur Leukocyte Esterase Neg (Negative) 02/25/17 22:42 Urine WBC (Auto) 2.0 /HPF (0.0-6.0) 02/25/17 22:42 Urine RBC (Auto) < 1.0 /HPF (0.0-6.0) 02/25/17 22:42 U Epithel Cells (Auto) 1.0 /HPF (0-13.0) 02/25/17 22:42 Urine Mucus Few /HPF 02/25/17 22:42 Urine HCG, Qual Negative (Negative) 02/25/17 22:42 Salicylates < 0.3 mg/dL (2.8-20.0) L 02/25/17 23:01 Urine Opiates Screen Presumptive negative 02/25/17 22:42 Urine Methadone Screen Presumptive negative 02/25/17 22:42 Acetaminophen < 15.0 ug/mL (10.0-30.0) 02/25/17 23:01 Ur Barbiturates Screen Presumptive negative 02/25/17 22:42 Ur Phencyclidine Scrn Presumptive negative 02/25/17 22:42 Ur Amphetamines Screen Presumptive negative 02/25/17 22:42 U Benzodiazepines Scrn Presumptive negative 02/25/17 22:42 Urine Cocaine Screen Presumptive negative 02/25/17 22:42 U Marijuana (THC) Screen Presumptive negative 02/25/17 22:42 Drugs of Abuse Note Disclamer 02/25/17 22:42
[2017-02-26 13:57] LABS: Creatine Kinase MB 1.9 ng/mL (0.0-4.0)
[2017-02-26 14:00] LABS: Creatine Kinase 107 units/L (30-135)
--- NOTE | 2017-02-26 14:02 | History and Physical Report ---
CHIEF COMPLAINT: Altered mental status. HISTORY OF PRESENT ILLNESS: The patient is a 41-year-old female, found at home by family to be having altered mental status. The patient was unresponsive and EMS was called. Family said that they looked at the patient's bag of medications and noted that the patient took a lot of medications and the family believes that the patient took too many of pain medication. EMS was called. The patient was given 2 mg of Narcan intramuscularly and showed very little response ____ they drove her closer to the hospital, the patient became more and more unresponsive. When the patient arrived at the Emergency Room, she was evaluated and she found to have decreased responsiveness. There was no prior history of chest pain, shortness of breath, nausea or vomiting according to the family information. There was also no history of fever. PAST MEDICAL HISTORY: Pertinent for hypertension, multiple strokes about 5 times with right-sided paralysis and dysphagia. Also, the patient has a past history of coronary artery disease, renal disease, migraine headache, depression, lupus erythematosus, difficulty with ambulation. PAST SURGICAL HISTORY: Pertinent for stent placement, open heart surgery. FAMILY HISTORY: Noncontributory. SOCIAL HISTORY: The patient stays with family. Does not smoke, does not drink alcohol and does not use illicit drugs. MEDICATIONS: The patient is on multivitamin 1 tab daily, thiamine 100 mg by mouth daily, Robaxin 500 mg every 6 hours as needed for pain, aspirin 81 mg by mouth daily, bisacodyl 10 mg rectally daily as needed for constipation, Coreg or carvedilol 3.125 mg by mouth twice daily, chlorthalidone 12.5 mg by mouth daily, clopidogrel or Plavix 75 mg daily, fosinopril sodium 40 mg by mouth daily, Plaquenil 200 mg by mouth daily, sumatriptan succinate 50 mg every 6 hours as needed for headache, Zoloft 100 mg by mouth at bedtime, Zocor 40 mg by mouth daily, Keppra 500 mg by mouth twice daily, tramadol 100 mg p.o. t.i.d. as needed for pain, Bactrim double strength one by mouth twice daily. ALLERGIES: There are no known drug allergies. REVIEW OF SYSTEMS: CONSTITUTIONAL: There is no fever, no chills, no diaphoresis. HEENT: There is no headache or sore throat. CARDIOVASCULAR SYSTEM: There is no chest pain or orthopnea. RESPIRATORY SYSTEM: There is no shortness of breath or cough. GASTROINTESTINAL SYSTEM: There is no nausea, no vomiting, no abdominal pain, diarrhea or constipation. NEUROLOGICAL SYSTEM: Altered mental status noted. MUSCULOSKELETAL SYSTEM: There is no joint pain or swelling. DERMATOLOGICAL SYSTEM: There is no skin rash or itching. GENITOURINARY SYSTEM: There is no dysuria, hematuria, or flank pain. Rest of system review is normal. PHYSICAL EXAMINATION: GENERAL: At the time of exam, the patient was found to be lethargic, but arousable and able to answer some questions and follows some commands. VITAL SIGNS: Show normal temperature with pulse of 69, respirations 11, blood pressure 102/68, and O2 sat of 99% on oxygen 2 liters. HEENT: Shows pinpoint pupils, reactive to light sluggishly. NECK: Supple with no JVD or carotid bruit. CARDIOVASCULAR SYSTEM: Show first and second heart sounds with no gallops or murmur. RESPIRATORY SYSTEM: Show good air entry on both sides of the lung with no abnormal breath sounds. GASTROINTESTINAL SYSTEM: Show abdomen to be full, soft, nontender with no organomegaly or rigidity. NEUROLOGIC: Showed no new focal deficit. MUSCULOSKELETAL SYSTEM: Shows no joint swelling or tenderness. DERMATOLOGICAL SYSTEM: Shows no skin rash. GENITOURINARY SYSTEM: Showing no costovertebral angle tenderness. PERTINENT LABORATORY DATA AND IMAGING STUDIES: The patient has CBC done with normal white count, normal hemoglobin and normal hematocrit. Rest of CBC was unremarkable. Chemistry shows slight decrease in sodium of 135 and decreasing chloride of 96 with elevated blood glucose of 132. The patient's cardiac enzymes showed normal troponin level, with slightly elevated total CK of 138 and normal CK-MB and normal CK-MB percentage/index. The patient's urinalysis was unremarkable. Urine drug screen was unremarkable. IMAGING STUDIES: The patient had a CT of the head without contrast done, this shows no grossly acute intracranial abnormality; however, there is finding of stable remote large MCA distribution infarct. Also, the patient had a chest x-ray done that shows shallow inspiration with crowding of bronchoalveolar marking and no gross consolidation or effusion was found. DIAGNOSIS: Altered mental status. PLAN: The patient will be admitted to medical floor on telemetry and will have MRI of the brain without contrast done this morning. The patient will also have cardiac enzymes checked q. 6 hours x 2 more levels, and we will have neurology consult with Dr. Warren, who is supposed to be rounding today. The patient will be on IV Zofran 4 mg every 8 hours as needed for nausea and vomiting and DVT prophylaxis will be through sequential compressive device. 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 Further management of the patient's condition will be dependent on the result of the MRI and Neurology consult. JOB# [id number] OCN/NTS
[2017-02-26] MEDS: KEPPRA PO SCH ×2 (17:13→21:45)
[2017-02-26] MEDS: THALITONE PO SCH (17:14)
[2017-02-26] MEDS: THERAGRAN-M Tab PO SCH (17:14)
[2017-02-26] MEDS: BABY ASPIRIN PO SCH (17:16)
[2017-02-26] MEDS: PLAVIX PO SCH (17:16)
[2017-02-26] MEDS: PLAQUENIL PO SCH (17:16)
[2017-02-26] MEDS: COREG PO SCH ×2 (17:17→21:45)
[2017-02-26] MEDS: ZESTRIL PO SCH (17:19)
[2017-02-26] MEDS ORDERED: Fluarix Quad 2017-2018(36 MOS+ IM ONE (17:46)
[2017-02-26] MEDS: ZOLOFT PO SCH (21:45)
[2017-02-26] MEDS ORDERED: ZOLOFT PO SCH (22:00)
[2017-02-27] MEDS: NORCO 5/325 PO PRN ×3 (01:21→22:20)
[2017-02-27] MEDS: COREG PO SCH ×2 (10:16→22:19)
[2017-02-27] MEDS: BABY ASPIRIN PO SCH (10:32)
[2017-02-27] MEDS: THERAGRAN-M Tab PO SCH (10:32)
[2017-02-27] MEDS: PLAQUENIL PO SCH (10:32)
[2017-02-27] MEDS: PLAVIX PO SCH (10:32)
[2017-02-27] MEDS: ZESTRIL PO SCH (10:33)
[2017-02-27] MEDS: KEPPRA PO SCH ×2 (10:33→22:19)
[2017-02-27] MEDS ORDERED: Fluarix Quad 2017-2018(36 MOS+ IM ONE (12:00)
--- NOTE | 2017-02-27 12:36 | Discharge Summary ---
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 Urinalysis is unremarkable, chest x-ray unremarkable, CT head without contrast read as no acute finding but stable remote large MCA distribution infarct. Seen by neurologist, "DX IMP: 1. Severe remote left MCA distribution infarct, with severe mixed (receptive and expressive) aphasia, and dense right hemiplegia. 2. Depression secondary to the above, with likely inadvertent (vs deliberate) excessive med intake..? Keppra ( which can make one sleepy), and altered awareness on this basis (given hx, more likely than unwitnessed Sz), now resolved. 3. Other dxs as above. RECC: 1. Have Social Service/ case management review patients living circumstances and supervision at home. Patient obviously cannot walk, cannot get into a wheelchair by herself, and needs help. 2. Get a Keppra level...where are we re levels and doses?. 3. Get EEG. 3. See no need for further neuro work up at this time beyond the above. 4. Is she on an antidepressant?. Needs to be. Yuliya Warren MD" -Acute encephalopathy most likely due to the above -Late effect of CVA: Supportive care -Seizure disorder: EEG pending an MRI of brain pending, on Keppra -Depression: zoloft -DVT prophylaxis: Added subcutaneous heparin MRI pending, EEG pending possibly discharged Disposition: [id number] HOME UNDER HOME [facility] Time spent for discharge: 35 mins Core Measure Documentation - Palliative Care Palliative Care/ Comfort Measures: Not Applicable - Core Measures Any of the following diagnoses?: none - VTE Discharge Requirements Deep Vein Thrombosis/Pulmonary Embolism Present on Admission: No Exam - Constitutional Vitals: Temp Pulse Resp BP Pulse Ox 98.3 F 99 H 18 138/85 96 02/27/17 12:29 02/27/17 12:29 02/27/17 12:29 02/27/17 12:29 02/27/17 12:29 Plan Activity: advance as tolerated, fall precautions Diet: per dietitian instruction Special Instructions: record daily weights, record daily BP diary Additional Instructions: follow with primary neurologist in 1 week Follow up with: PRIMARY CARE, [Primary Care Provider] - 3-5 Days Prescriptions: Chlorthalidone [Thalitone] 12.5 mg PO QDAY #30 tablet Hydroxychloroquine [Plaquenil] 200 mg PO QDAY #30 tablet Lisinopril [Zestril TAB] 40 mg PO QDAY #30 tablet methOCARBAMOL [Robaxin TAB] 500 mg PO BID PRN #30 tablet PRN Reason: muscle spasms
[2017-02-27] MEDS ORDERED: HEPARIN SUB-Q SCH (13:06)
[2017-02-27] MEDS: THALITONE PO SCH (14:09)
--- NOTE | 2017-02-27 15:04 | Magnetic Resonance Report ---
MRI BRAIN WITHOUT CONTRAST INDICATION: Altered mental status. COMPARISON: Yesterday's head CT and 08/17/2016 brain MRI. FINDINGS: Noncontrast multiplanar and multisequence MRI of the brain demonstrates no significant interval change since July 2016 with large, approximately 10.6 x 3 x 8.5 cm left MCA territory frontotemporoparietal infarct and mild ex-vacuo dilatation of the left lateral ventricle. Associated FLAIR and T2 weighted hyperintensities also again most prominent in this region and also throughout approximately 7 x 2.8 cm residual/marginalized left cerebral tissue sequestered in the area of the infarction as on axial series 7, images 16-22, again demonstrating restricted diffusion, that in isolation would represent acute infarction but would be unusual to stay the same over past 6 month period. This region is again hyperintense on T1 with mild mineralization around it also seen. No other or new restricted diffusion areas though noted. Normal posterior fossa with preserved basilar cisterns and symmetric seventh and eighth nerve complexes. Left cerebral peduncle Wallerian degeneration incidentally again seen. Normal eye globes. Clear imaged paranasal sinuses and mastoid air cells. Normal midline structures without evidence of Chiari malformation. CONCLUSION: 1. No significant interval change since July 2016, though possibly residual/marginalized portion of the left cerebral hemisphere amidst large left MCA territory infarct again demonstrates restricted diffusion, as detailed above. Please correlate. 2. Otherwise unremarkable exam with normal right cerebral and posterior fossa MRI appearance, as described. Thank you for the opportunity to participate in this patient's care.
[2017-02-27] MEDS: ZOLOFT PO SCH (22:19)
[2017-02-27 22:22] VITALS: BP 109/51
== END 2017-02-27 22:55 | disposition home health service (06) | DRG 71 ==
LOC: ED 22:25 → 4A 02-26 05:20
PROVIDERS: ADMIT Internal Medicine; ATTEND Internal Medicine
PROC: 3E0234Z Introduction of Serum, Toxoid and Vaccine into Muscle, Percutaneous Approach (ICD-10-PCS; principal; 2017-02-27)
DX: G93.49 Other encephalopathy (principal); I69.351 Hemiplegia and hemiparesis following cerebral infarction affecting right dominant side; G40.909 Epilepsy, unspecified, not intractable, without status epilepticus; I10 Essential (primary) hypertension; F32.9 Major depressive disorder, single episode, unspecified; G43.909 Migraine, unspecified, not intractable, without status migrainosus; M32.9 Systemic lupus erythematosus, unspecified; I25.10 Atherosclerotic heart disease of native coronary artery without angina pectoris; Z79.899 Other long term (current) drug therapy; Z79.82 Long term (current) use of aspirin; I25.2 Old myocardial infarction; Z95.5 Presence of coronary angioplasty implant and graft; I69.320 Aphasia following cerebral infarction; I69.321 Dysphasia following cerebral infarction; Z23 Encounter for immunization
CPT/HCPCS: 36415; 70450; 70551; 71010; 80053; 80177; 80307; 80320; 81001; 81025; 82140; 82550; 82553; 82962; 83880; 84484; 85025; 90686; 93005; 93010; 94760; 95819; 96374; G0480; G8996-GN; G8997-GN; J1644; J1885; J2310

== ENCOUNTER 2017-07-26 12:25 | Emergency (ER) | payer MEDICARE, OTHER ==
[2017-07-26 12:58] VITALS: BP 134/79
[2017-07-26] MEDS ORDERED: PERCOCET 5/325 PO ONE (15:12)
--- NOTE | 2017-07-26 16:09 | Emergency Department Report ---
ED General Adult HPI - General Chief complaint: Pain General Stated complaint: BILATERAL LEG PAIN/BODY PAIN Time Seen by Provider: 07/26/17 15:12 Source: patient Mode of arrival: Wheelchair Limitations: No Limitations - History of Present Illness Initial comments: She has a 41-year-old female past medical history of old stroke presents with bilateral leg pain nothing going on for the last couple days. Patient states pain is an 8 out of 10. Aches throughout her legs. This is typical for chronic pain. Patient states that she is out of her narcotic pain medication and is requesting an IM shot of Dilaudid. She denies having nausea vomiting headaches or chills. Severity scale (0 -10): 6 - Related Data Previous Rx's Medication Instructions Recorded Last Taken Type Aspirin [Aspirin BABY CHEW TAB] 81 mg PO QDAY #30 tab.chew 08/20/16 3 Days Ago Rx ~02/23/17 Carvedilol [Coreg] 3.125 mg PO BID #60 tablet 08/20/16 3 Days Ago Rx ~02/23/17 Clopidogrel [Plavix] 75 mg PO QDAY #30 tablet 08/20/16 3 Days Ago Rx ~02/23/17 SUMAtriptan SUCCINATE [SUMAtriptan 50 mg PO Q6H PRN #20 tablet 08/20/16 3 Days Ago Rx Succinate] ~02/23/17 Sertraline HCl [Zoloft] 100 mg PO QHS #60 tablet 08/20/16 3 Days Ago Rx ~02/23/17 Simvastatin [Zocor TAB] 40 mg PO QHS #30 tablet 08/20/16 3 Days Ago Rx ~02/23/17 levETIRAcetam [Keppra TAB] 500 mg PO BID #60 tablet 08/20/16 3 Days Ago Rx ~02/23/17 Chlorthalidone [Thalitone] 12.5 mg PO QDAY #30 tablet 02/27/17 Unknown Rx Hydroxychloroquine [Plaquenil] 200 mg PO QDAY #30 tablet 02/27/17 Unknown Rx Lisinopril [Zestril TAB] 40 mg PO QDAY #30 tablet 02/27/17 Unknown Rx methOCARBAMOL [Robaxin TAB] 500 mg PO BID PRN #30 tablet 02/27/17 Unknown Rx traMADol [Ultram 50 MG tab] 50 mg PO Q6HR PRN #13 tablet 07/26/17 Unknown Rx Allergies Allergy/AdvReac Type Severity Reaction Status Date / Time No Known Allergies Allergy Verified 04/10/16 12:51 ED Review of Systems ROS: Stated complaint: BILATERAL LEG PAIN/BODY PAIN Other details as noted in HPI Constitutional: denies: chills, fever Eyes: denies: eye pain, eye discharge, vision change ENT: denies: ear pain, throat pain Respiratory: denies: cough, shortness of breath, wheezing Cardiovascular: denies: chest pain, palpitations Endocrine: no symptoms reported Gastrointestinal: denies: abdominal pain, nausea, diarrhea Genitourinary: denies: urgency, dysuria, discharge Musculoskeletal: myalgia. denies: back pain, joint swelling, arthralgia Skin: denies: rash, lesions Neurological: as per HPI. denies: headache, weakness, paresthesias Psychiatric: denies: anxiety, depression Hematological/Lymphatic: denies: easy bleeding, easy bruising ED Past Medical Hx - Past Medical History Hx Hypertension: Yes 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, dysphasia) Hx Heart Attack/AMI: Yes (stents) Hx Congestive Heart Failure: No Hx Diabetes: No Hx Renal Disease: Yes Hx Arthritis: No Hx Headaches / Migraines: Yes Hx Seizures: Yes Hx Psychiatric Treatment: Yes (depression) Hx Asthma: No Hx COPD: No Additional medical history: lupus, ambulates with assistance - Surgical History Hx Coronary Stent: Yes Hx Open Heart Surgery: Yes (stents) - Social History Smoking Status: Never Smoker Substance Use Type: None - Medications Home Medications: Home Medications Medication Instructions Recorded Confirmed Last Taken Type Aspirin [Aspirin BABY CHEW TAB] 81 mg PO QDAY #30 tab.chew 08/20/16 02/26/17 3 Days Ago Rx ~02/23/17 Carvedilol [Coreg] 3.125 mg PO BID #60 tablet 08/20/16 02/26/17 3 Days Ago Rx ~02/23/17 Clopidogrel [Plavix] 75 mg PO QDAY #30 tablet 08/20/16 02/26/17 3 Days Ago Rx ~02/23/17 SUMAtriptan SUCCINATE [SUMAtriptan 50 mg PO Q6H PRN #20 tablet 08/20/16 3 Days Ago Rx Succinate] ~02/23/17 Sertraline HCl [Zoloft] 100 mg PO QHS #60 tablet 08/20/16 02/26/17 3 Days Ago Rx ~02/23/17 Simvastatin [Zocor TAB] 40 mg PO QHS #30 tablet 08/20/16 02/26/17 3 Days Ago Rx ~02/23/17 levETIRAcetam [Keppra TAB] 500 mg PO BID #60 tablet 08/20/16 02/26/17 3 Days Ago Rx ~02/23/17 Chlorthalidone [Thalitone] 12.5 mg PO QDAY #30 tablet 02/27/17 Unknown Rx Hydroxychloroquine [Plaquenil] 200 mg PO QDAY #30 tablet 02/27/17 Unknown Rx Lisinopril [Zestril TAB] 40 mg PO QDAY #30 tablet 02/27/17 Unknown Rx methOCARBAMOL [Robaxin TAB] 500 mg PO BID PRN #30 tablet 02/27/17 Unknown Rx traMADol [Ultram 50 MG tab] 50 mg PO Q6HR PRN #13 tablet 07/26/17 Unknown Rx ED Physical Exam - General Limitations: No Limitations General appearance: alert, in no apparent distress - Head Head exam: Present: atraumatic, normocephalic - Eye Eye exam: Present: normal appearance - ENT ENT exam: Present: mucous membranes moist - Neck Neck exam: Present: normal inspection - Respiratory Respiratory exam: Present: normal lung sounds bilaterally. Absent: respiratory distress - Cardiovascular Cardiovascular Exam: Present: regular rate, normal rhythm. Absent: systolic murmur, diastolic murmur, rubs, gallop - GI/Abdominal GI/Abdominal exam: Present: soft, normal bowel sounds - Extremities Exam Extremities exam: Present: normal inspection - Back Exam Back exam: Present: normal inspection - Neurological Exam Neurological exam: Present: other (old residual stroke deficts ) - Psychiatric Psychiatric exam: Present: normal affect, normal mood - Skin Skin exam: Present: warm, dry, intact, normal color. Absent: rash ED Course Vital Signs 07/26/17 12:56 Temperature 98.4 F Pulse Rate 85 Respiratory 18 Rate Blood Pressure 134/79 O2 Sat by Pulse 95 Oximetry ED Medical Decision Making - Medical Decision Making Cdx: Neuropathy ddx: Fibromyalgia, residual pain due to stroke I will give patient oral percocet and will send pt home with tramadol. Discussed plan with patient and patient agrees with plan. Additional verbal discharge instructions were given. Critical care attestation.: If time is entered above; I have spent that time in minutes in the direct care of this critically ill patient, excluding procedure time. ED Disposition Clinical Impression: History of CVA with residual deficit, Hemiparesis affecting right side as late effect of cerebrovascular accident, Dysarthria as late effect of cerebrovascular accident (CVA) Chronic leg pain Qualifiers: Laterality: unspecified laterality Qualified Code(s): M79.606 - Pain in leg, unspecified Disposition: DC- TO HOME OR SELFCARE Is pt being admited?: No Does the pt Need Aspirin: No Condition: Stable Instructions: Chronic Pain (ED) Prescriptions: traMADol [Ultram 50 MG tab] 50 mg PO Q6HR PRN #13 tablet PRN Reason: Pain Referrals: АНДРЕЙ CACERES MD [Staff Physician] - 3-5 Days
== END 2017-07-26 16:20 | disposition home or self-care (01) ==
LOC: ED 12:25
DX: I69.351 Hemiplegia and hemiparesis following cerebral infarction affecting right dominant side (principal); I13.0 Hypertensive heart and chronic kidney disease with heart failure and stage 1 through stage 4 chronic kidney disease, or unspecified chronic kidney disease; N18.9 Chronic kidney disease, unspecified; Z79.82 Long term (current) use of aspirin; F32.9 Major depressive disorder, single episode, unspecified; Z95.1 Presence of aortocoronary bypass graft; M32.9 Systemic lupus erythematosus, unspecified
CPT/HCPCS: 99282

== ENCOUNTER 2017-10-03 13:30 | Emergency (ER) | payer MEDICARE, OTHER ==
[2017-10-03] MEDS ORDERED: NORCO 5/325 PO ONE (20:52)
--- NOTE | 2017-10-03 20:54 | Emergency Department Report ---
ED Lower Extremity HPI - General Chief Complaint: Extremity Injury, Lower Stated Complaint: RIGHT FOOT INJURY Time Seen by Provider: 10/03/17 20:24 Source: patient Mode of arrival: Wheelchair Limitations: Physical Limitation - History of Present Illness Initial Comments: 41-year-old female past medical history multiple CVAs, hypertension, hyperlipidemia, CO, depression, kidney disease, lupus, stents presents with complaint of pain to her right distal great toe. As per patient and her family member at bedside patient accidentally dragged her right foot on ground for a moment underneath her wheelchair. Primarily complaining of right great toe pain. Partial avulsion of right great toenail. This occurred 4 days ago. Denies any other injuries. Patient does wear a prosthesis to help her walk secondary to chronic right hemiparesis for her right foot/lower extremity. Tetanus vaccine up-to-date. No reports of pus drainage or bleeding from site of nail avulsion. MD Complaint: ankle injury, foot injury Onset/Timin -: days(s) Injury: Toes: Right (right great toe contusion/nail avulsion) Place: street/outdoors Severity: moderate Context: direct blow Associated Symptoms: swelling, ambulatory - Related Data Previous Rx's Medication Instructions Recorded Last Taken Type Aspirin [Aspirin BABY CHEW TAB] 81 mg PO QDAY #30 tab.chew 08/20/16 3 Days Ago Rx ~02/23/17 Carvedilol [Coreg] 3.125 mg PO BID #60 tablet 08/20/16 3 Days Ago Rx ~02/23/17 Clopidogrel [Plavix] 75 mg PO QDAY #30 tablet 08/20/16 3 Days Ago Rx ~02/23/17 SUMAtriptan SUCCINATE [SUMAtriptan 50 mg PO Q6H PRN #20 tablet 08/20/16 3 Days Ago Rx Succinate] ~02/23/17 Sertraline HCl [Zoloft] 100 mg PO QHS #60 tablet 08/20/16 3 Days Ago Rx ~02/23/17 Simvastatin [Zocor TAB] 40 mg PO QHS #30 tablet 08/20/16 3 Days Ago Rx ~02/23/17 levETIRAcetam [Keppra TAB] 500 mg PO BID #60 tablet 08/20/16 3 Days Ago Rx ~02/23/17 Chlorthalidone [Thalitone] 12.5 mg PO QDAY #30 tablet 02/27/17 Unknown Rx Hydroxychloroquine [Plaquenil] 200 mg PO QDAY #30 tablet 02/27/17 Unknown Rx Lisinopril [Zestril TAB] 40 mg PO QDAY #30 tablet 02/27/17 Unknown Rx methOCARBAMOL [Robaxin TAB] 500 mg PO BID PRN #30 tablet 02/27/17 Unknown Rx traMADol [Ultram 50 MG tab] 50 mg PO Q6HR PRN #13 tablet 07/26/17 Unknown Rx Acetaminophen/Codeine [Tylenol 1 tab PO Q6H PRN #12 tab 10/03/17 Unknown Rx /Codeine # 3 tab] Cephalexin [Keflex] 500 mg PO Q12HR #10 cap 10/03/17 Unknown Rx Allergies Allergy/AdvReac Type Severity Reaction Status Date / Time No Known Allergies Allergy Verified 04/10/16 12:51 ED Review of Systems ROS: Stated complaint: RIGHT FOOT INJURY Other details as noted in HPI Constitutional: denies: chills, fever Eyes: denies: eye pain, eye discharge, vision change ENT: denies: ear pain, throat pain Respiratory: denies: cough, shortness of breath, wheezing Cardiovascular: denies: chest pain, palpitations Endocrine: no symptoms reported Gastrointestinal: denies: abdominal pain, nausea, diarrhea Genitourinary: denies: urgency, dysuria, discharge Musculoskeletal: denies: back pain, joint swelling, arthralgia Skin: as per HPI. denies: rash, lesions Neurological: as per HPI (chronic right upper and lower extremity hemiparesis secondary to multiple strokes), weakness (secondary to multiple strokes), abnormal gait, other. denies: headache, paresthesias Psychiatric: denies: anxiety, depression Hematological/Lymphatic: denies: easy bleeding, easy bruising ED Past Medical Hx - Past Medical History Previous Medical History?: Yes Hx Hypertension: Yes 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, dysphasia) Hx Heart Attack/AMI: Yes (stents) Hx Congestive Heart Failure: No Hx Diabetes: No Hx Renal Disease: Yes Hx Arthritis: No Hx Headaches / Migraines: Yes Hx Seizures: Yes Hx Psychiatric Treatment: Yes (depression) Hx Asthma: No Hx COPD: No Additional medical history: lupus, ambulates with assistance - Surgical History Past Surgical History?: Yes Hx Coronary Stent: Yes Hx Open Heart Surgery: Yes (stents) - Social History Smoking Status: Never Smoker Substance Use Type: None - Medications Home Medications: Home Medications Medication Instructions Recorded Confirmed Last Taken Type Aspirin [Aspirin BABY CHEW TAB] 81 mg PO QDAY #30 tab.chew 08/20/16 02/26/17 3 Days Ago Rx ~02/23/17 Carvedilol [Coreg] 3.125 mg PO BID #60 tablet 08/20/16 02/26/17 3 Days Ago Rx ~02/23/17 Clopidogrel [Plavix] 75 mg PO QDAY #30 tablet 08/20/16 02/26/17 3 Days Ago Rx ~02/23/17 SUMAtriptan SUCCINATE [SUMAtriptan 50 mg PO Q6H PRN #20 tablet 08/20/16 3 Days Ago Rx Succinate] ~02/23/17 Sertraline HCl [Zoloft] 100 mg PO QHS #60 tablet 08/20/16 02/26/17 3 Days Ago Rx ~02/23/17 Simvastatin [Zocor TAB] 40 mg PO QHS #30 tablet 08/20/16 02/26/17 3 Days Ago Rx ~02/23/17 levETIRAcetam [Keppra TAB] 500 mg PO BID #60 tablet 08/20/16 02/26/17 3 Days Ago Rx ~02/23/17 Chlorthalidone [Thalitone] 12.5 mg PO QDAY #30 tablet 02/27/17 Unknown Rx Hydroxychloroquine [Plaquenil] 200 mg PO QDAY #30 tablet 02/27/17 Unknown Rx Lisinopril [Zestril TAB] 40 mg PO QDAY #30 tablet 02/27/17 Unknown Rx methOCARBAMOL [Robaxin TAB] 500 mg PO BID PRN #30 tablet 02/27/17 Unknown Rx traMADol [Ultram 50 MG tab] 50 mg PO Q6HR PRN #13 tablet 07/26/17 Unknown Rx Acetaminophen/Codeine [Tylenol 1 tab PO Q6H PRN #12 tab 10/03/17 Unknown Rx /Codeine # 3 tab] Cephalexin [Keflex] 500 mg PO Q12HR #10 cap 10/03/17 Unknown Rx ED Physical Exam - General Limitations: Physical Limitation General appearance: alert, in no apparent distress - Head Head exam: Present: atraumatic, normocephalic - Eye Eye exam: Present: normal appearance - ENT ENT exam: Present: mucous membranes moist - Neck Neck exam: Present: normal inspection - Respiratory Respiratory exam: Present: normal lung sounds bilaterally. Absent: respiratory distress - Cardiovascular Cardiovascular Exam: Present: regular rate, normal rhythm. Absent: systolic murmur, diastolic murmur, rubs, gallop - GI/Abdominal GI/Abdominal exam: Present: soft, normal bowel sounds - Extremities Exam Extremities exam: Present: normal inspection - Expanded Lower Extremity Exam Right Upper Leg exam: Present: normal inspection, full ROM Knee exam: Present: normal inspection, full ROM Lower Leg exam: Present: normal inspection, full ROM Ankle exam: Present: normal inspection, full ROM Foot/Toe exam: Present: nail avulsion (small degree of nail avulsion right great toe. Most of nail is intact. No subungual hematoma. No signs of cellulitis or infection at this time) Neuro vascular tendon exam: Present: no vascular compromise Gait: Positive: antalgic 1 - Slight nail avulsion here - Back Exam Back exam: Present: normal inspection - Neurological Exam Neurological exam: Present: alert, oriented X3, abnormal gait, other (patient has right-sided hemiparesis secondary to her multiple strokes) - Psychiatric Psychiatric exam: Present: normal affect, normal mood - Skin Skin exam: Present: warm, dry, intact, normal color. Absent: rash ED Course Vital Signs 10/03/17 10/03/17 15:06 20:57 Temperature 98.8 F 97.8 F Pulse Rate 100 H 91 H Respiratory 18 18 Rate Blood Pressure 123/76 Blood Pressure 129/99 [Left] O2 Sat by Pulse 100 99 Oximetry ED Lower Extremity MDM - Medical Decision Making A/P: Toenail avulsion 1-short course Tylenol 3 when necessary 2-follow-up with podiatry 3-advised patient to return to the ED for any fevers chills or purulent drainage from nail bed 4- x-ray shows no fractures. Critical care attestation.: If time is entered above; I have spent that time in minutes in the direct care of this critically ill patient, excluding procedure time. ED Disposition Clinical Impression: Toenail avulsion Qualifiers: Encounter type: initial encounter Qualified Code(s): S91.209A - Unspecified open wound of unspecified toe(s) with damage to nail, initial encounter Disposition: TO HOME OR SELFCARE Is pt being admited?: No Does the pt Need Aspirin: No Condition: Stable Instructions: Toenail/Fingernail Removal (ED), Foot Sprain (ED) Prescriptions: Acetaminophen/Codeine [Tylenol /Codeine # 3 tab] 1 tab PO Q6H PRN #12 tab PRN Reason: Pain Cephalexin [Keflex] 500 mg PO Q12HR #10 cap Referrals: ASHLEE LOOMIS DPM [Staff Physician] - 3-5 Days [employer] [facility] [Provider Group] - 3-5 Days Forms: Accompanied Note Time of Disposition: 22:19
[2017-10-03 20:58] VITALS: BP 129/99
--- NOTE | 2017-10-03 22:32 | XRay Report ---
FINAL REPORT PROCEDURE: XR FOOT 2V RT TECHNIQUE: RIGHT foot radiographs, AP and lateral views. HISTORY: right foot pain COMPARISON: No prior studies are available for comparison. FINDINGS: Fracture (s) and/or Dislocation(s): None . Alignment: Normal. Joint space(s): Normal. Soft tissues: Diffuse soft tissue swelling is noted. Bone mineralization: Normal. Foreign bodies: None. Calcaneal spurring: None. IMPRESSION: No acute bony or joint abnormality
--- NOTE | 2017-10-03 22:34 | XRay Report ---
FINAL REPORT PROCEDURE: XR TOE(S) 2+V RT TECHNIQUE: RIGHT 1st toe radiographs, including AP, oblique and lateral views. HISTORY: right great toe pain COMPARISON: No prior studies are available for comparison. FINDINGS: Fracture(s) and/or Dislocation(s): None. Joint space(s): Normal. Soft tissues: Normal. Bone mineralization: Normal. Foreign bodies: None. IMPRESSION: Normal Examination
== END 2017-10-03 22:20 | disposition home or self-care (01) ==
LOC: ED 13:30
DX: S91.201A Unspecified open wound of right great toe with damage to nail, initial encounter (principal); I10 Essential (primary) hypertension; I25.2 Old myocardial infarction; G43.909 Migraine, unspecified, not intractable, without status migrainosus; E78.5 Hyperlipidemia, unspecified; Z95.1 Presence of aortocoronary bypass graft; Z79.82 Long term (current) use of aspirin; Z86.73 Personal history of transient ischemic attack (TIA), and cerebral infarction without residual deficits; W22.03XA Walked into furniture, initial encounter; Y93.89 Activity, other specified; Y92.89 Other specified places as the place of occurrence of the external cause; Y99.8 Other external cause status
CPT/HCPCS: 99283

== ENCOUNTER 2018-07-11 23:37 | Emergency (ER) | payer MEDICARE, OTHER ==
[2018-07-12] MEDS ORDERED: NORMODYNE IV ONE (00:19)
[2018-07-12] MEDS ORDERED: CATAPRES PO ONE (00:30)
[2018-07-12 00:37] VITALS: BP 146/99
[2018-07-12] MEDS ORDERED: ULTRAM PO ONE (00:48)
--- NOTE | 2018-07-12 00:48 | Emergency Department Report ---
ED General Adult HPI - General Chief complaint: High BP Stated complaint: RIGHT SIDE PAIN Time Seen by Provider: 07/12/18 00:06 Source: patient, EMS Mode of arrival: Stretcher Limitations: Physical Limitation - History of Present Illness Initial comments: 42-year-old male presents to the ED with elevated blood pressure. Son called EMS because patient has systolic blood pressure in the 170s. Patient has history of CVA, chronic pain. Patient reporting "pain all over," requesting Percocet. Patient denies any new neuro deficits. Has baseline right-sided weakness, facial droop, and slurred speech, per pt's daughter who I spoke with over the phone. -: This evening Severity scale (0 -10): 0 Consistency: constant Associated Symptoms: other (reports geberalized pain ) - Related Data Previous Rx's Medication Instructions Recorded Last Taken Type Aspirin [Aspirin BABY CHEW TAB] 81 mg PO QDAY #30 tab.chew 08/20/16 3 Days Ago Rx ~02/23/17 Carvedilol [Coreg] 3.125 mg PO BID #60 tablet 08/20/16 3 Days Ago Rx ~02/23/17 Clopidogrel [Plavix] 75 mg PO QDAY #30 tablet 08/20/16 3 Days Ago Rx ~02/23/17 SUMAtriptan succinate [SUMAtriptan 50 mg PO Q6H PRN #20 tablet 08/20/16 3 Days Ago Rx Succinate] ~02/23/17 Sertraline HCl [Zoloft] 100 mg PO QHS #60 tablet 08/20/16 3 Days Ago Rx ~02/23/17 Simvastatin [Zocor TAB] 40 mg PO QHS #30 tablet 08/20/16 3 Days Ago Rx ~02/23/17 levETIRAcetam [Keppra TAB] 500 mg PO BID #60 tablet 08/20/16 3 Days Ago Rx ~02/23/17 Chlorthalidone [Thalitone] 12.5 mg PO QDAY #30 tablet 02/27/17 Unknown Rx Hydroxychloroquine [Plaquenil] 200 mg PO QDAY #30 tablet 02/27/17 Unknown Rx Lisinopril [Zestril TAB] 40 mg PO QDAY #30 tablet 02/27/17 Unknown Rx methOCARBAMOL [Robaxin TAB] 500 mg PO BID PRN #30 tablet 02/27/17 Unknown Rx traMADol [Ultram 50 MG tab] 50 mg PO Q6HR PRN #13 tablet 07/26/17 Unknown Rx Acetaminophen/Codeine [Tylenol 1 tab PO Q6H PRN #12 tab 10/03/17 Unknown Rx /Codeine # 3 tab] cephALEXin [Keflex] 500 mg PO Q12HR #10 cap 10/03/17 Unknown Rx Allergies Allergy/AdvReac Type Severity Reaction Status Date / Time No Known Allergies Allergy Verified 04/10/16 12:51 ED Review of Systems ROS: Stated complaint: RIGHT SIDE PAIN Other details as noted in HPI Comment: All other systems reviewed and negative Respiratory: shortness of breath Cardiovascular: chest pain Musculoskeletal: myalgia Neurological: denies: headache ED Past Medical Hx - Past Medical History Hx Hypertension: Yes 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, dysphasia) Hx Heart Attack/AMI: Yes (stents) Hx Congestive Heart Failure: No Hx Diabetes: No Hx Renal Disease: Yes Hx Arthritis: No Hx Headaches / Migraines: Yes Hx Seizures: Yes Hx Psychiatric Treatment: Yes (depression) Hx Asthma: No Hx COPD: No Additional medical history: lupus, ambulates with assistance - Surgical History Hx Coronary Stent: Yes Hx Open Heart Surgery: Yes (stents) - Social History Smoking Status: Current Every Day Smoker Substance Use Type: Alcohol - Medications Home Medications: Home Medications Medication Instructions Recorded Confirmed Last Taken Type Aspirin [Aspirin BABY CHEW TAB] 81 mg PO QDAY #30 tab.chew 08/20/16 02/26/17 3 Days Ago Rx ~02/23/17 Carvedilol [Coreg] 3.125 mg PO BID #60 tablet 08/20/16 02/26/17 3 Days Ago Rx ~02/23/17 Clopidogrel [Plavix] 75 mg PO QDAY #30 tablet 08/20/16 02/26/17 3 Days Ago Rx ~02/23/17 SUMAtriptan succinate [SUMAtriptan 50 mg PO Q6H PRN #20 tablet 08/20/16 02/26/17 3 Days Ago Rx Succinate] ~02/23/17 Sertraline HCl [Zoloft] 100 mg PO QHS #60 tablet 08/20/16 02/26/17 3 Days Ago Rx ~02/23/17 Simvastatin [Zocor TAB] 40 mg PO QHS #30 tablet 08/20/16 02/26/17 3 Days Ago Rx ~02/23/17 levETIRAcetam [Keppra TAB] 500 mg PO BID #60 tablet 08/20/16 02/26/17 3 Days Ago Rx ~02/23/17 Chlorthalidone [Thalitone] 12.5 mg PO QDAY #30 tablet 02/27/17 Unknown Rx Hydroxychloroquine [Plaquenil] 200 mg PO QDAY #30 tablet 02/27/17 Unknown Rx Lisinopril [Zestril TAB] 40 mg PO QDAY #30 tablet 02/27/17 Unknown Rx methOCARBAMOL [Robaxin TAB] 500 mg PO BID PRN #30 tablet 02/27/17 Unknown Rx traMADol [Ultram 50 MG tab] 50 mg PO Q6HR PRN #13 tablet 07/26/17 Unknown Rx Acetaminophen/Codeine [Tylenol 1 tab PO Q6H PRN #12 tab 10/03/17 Unknown Rx /Codeine # 3 tab] cephALEXin [Keflex] 500 mg PO Q12HR #10 cap 10/03/17 Unknown Rx ED Physical Exam - General Limitations: Physical Limitation General appearance: alert, in no apparent distress - Head Head exam: Present: atraumatic, normocephalic - Eye Eye exam: Present: normal appearance - ENT ENT exam: Present: mucous membranes moist - Neck Neck exam: Present: normal inspection - Respiratory Respiratory exam: Present: normal lung sounds bilaterally. Absent: respiratory distress - Cardiovascular Cardiovascular Exam: Present: regular rate, normal rhythm - GI/Abdominal GI/Abdominal exam: Present: soft. Absent: distended, tenderness - Extremities Exam Extremities exam: Present: other (mild contracture to right upper extremity) - Neurological Exam Neurological exam: Present: alert, oriented X3, other (facial droop noted, baseline right-sided weakness) - Psychiatric Psychiatric exam: Present: normal affect, normal mood - Skin Skin exam: Present: warm, dry, intact, normal color ED Course Vital Signs 07/11/18 07/11/18 07/11/18 23:47 23:49 23:56 Temperature 98.7 F 98.7 F Pulse Rate 82 82 82 Respiratory 16 16 16 Rate Blood Pressure 171/109 Blood Pressure 171/109 171/109 [Left] O2 Sat by Pulse 97 97 97 Oximetry 07/12/18 07/12/18 07/12/18 00:08 00:11 00:15 Temperature Pulse Rate 88 83 77 Respiratory 16 17 16 Rate Blood Pressure Blood Pressure 165/101 165/101 150/91 [Left] O2 Sat by Pulse 95 96 94 Oximetry 07/12/18 07/12/18 07/12/18 00:30 00:36 01:12 Temperature Pulse Rate 74 Respiratory 18 18 Rate Blood Pressure 146/99 Blood Pressure 146/99 [Left] O2 Sat by Pulse 94 Oximetry ED Medical Decision Making - Medical Decision Making 42-year-old female with history of multiple CVAs presents with asymptomatic hypertension. Son called EMS b/c patient had elevated BP at home. Reports g eneralized pain, hx of chronic pain. Pt requested percocet, however, ultram was given. Clonidine 0.1 mg given for hypertension. BP improved to 146/99. Will dispo at this time. - Differential Diagnosis essential hypertension, chronic pain Critical care attestation.: If time is entered above; I have spent that time in minutes in the direct care of this critically ill patient, excluding procedure time. ED Disposition Clinical Impression: HTN (hypertension) Disposition: -01 TO HOME OR SELFCARE Is pt being admited?: No Condition: Stable Instructions: Hypertension (ED) Referrals: PRIMARY CARE, [Referring] - 3-5 Days Time of Disposition: 01:37
== END 2018-07-12 01:06 | disposition home or self-care (01) ==
LOC: ED 23:37
DX: I10 Essential (primary) hypertension (principal); I25.2 Old myocardial infarction; F32.9 Major depressive disorder, single episode, unspecified; F17.200 Nicotine dependence, unspecified, uncomplicated

== ENCOUNTER 2018-07-12 18:51 | Emergency (ER) | payer MEDICARE, OTHER ==
[2018-07-12] MEDS ORDERED: PERCOCET 5/325 PO ONE (20:10)
--- NOTE | 2018-07-12 20:19 | Emergency Department Report ---
ED General Adult HPI - General Chief complaint: Chest Pain Stated complaint: CHEST PAIN Time Seen by Provider: 07/12/18 20:05 Source: EMS Mode of arrival: Stretcher Limitations: Physical Limitation - History of Present Illness Initial comments: Mrs. Vasquez is a 42 yo female with CVA right-sided hemiplegia, wheelchair bound, HTN, seizure, CAD with cardiac stent, SLE and depression who presents with left sided pain. She has pain throughout her body most predominantly on the left side. She asked my colleague for Percocet during yesterday's encounter. -: Gradual, days(s) (several) Location: chest, abdomen, left, upper extremity, lower extremity Severity scale (0 -10): 8 Consistency: constant Improves with: none Worsens with: none Associated Symptoms: denies other symptoms Treatments Prior to Arrival: none - Related Data Previous Rx's Medication Instructions Recorded Last Taken Type Aspirin [Aspirin BABY CHEW TAB] 81 mg PO QDAY #30 tab.chew 08/20/16 3 Days Ago Rx ~02/23/17 Carvedilol [Coreg] 3.125 mg PO BID #60 tablet 08/20/16 3 Days Ago Rx ~02/23/17 Clopidogrel [Plavix] 75 mg PO QDAY #30 tablet 08/20/16 3 Days Ago Rx ~02/23/17 SUMAtriptan succinate [SUMAtriptan 50 mg PO Q6H PRN #20 tablet 08/20/16 3 Days Ago Rx Succinate] ~02/23/17 Sertraline HCl [Zoloft] 100 mg PO QHS #60 tablet 08/20/16 3 Days Ago Rx ~02/23/17 Simvastatin [Zocor TAB] 40 mg PO QHS #30 tablet 08/20/16 3 Days Ago Rx ~02/23/17 levETIRAcetam [Keppra TAB] 500 mg PO BID #60 tablet 08/20/16 3 Days Ago Rx ~02/23/17 Chlorthalidone [Thalitone] 12.5 mg PO QDAY #30 tablet 02/27/17 Unknown Rx Hydroxychloroquine [Plaquenil] 200 mg PO QDAY #30 tablet 02/27/17 Unknown Rx Lisinopril [Zestril TAB] 40 mg PO QDAY #30 tablet 02/27/17 Unknown Rx methOCARBAMOL [Robaxin TAB] 500 mg PO BID PRN #30 tablet 02/27/17 Unknown Rx traMADol [Ultram 50 MG tab] 50 mg PO Q6HR PRN #13 tablet 07/26/17 Unknown Rx Acetaminophen/Codeine [Tylenol 1 tab PO Q6H PRN #12 tab 10/03/17 Unknown Rx /Codeine # 3 tab] cephALEXin [Keflex] 500 mg PO Q12HR #10 cap 10/03/17 Unknown Rx oxyCODONE /ACETAMINOPHEN [Percocet 1 tab PO Q6HR PRN #10 tablet 07/12/18 Unknown Rx 5/325] Allergies Allergy/AdvReac Type Severity Reaction Status Date / Time No Known Allergies Allergy Verified 04/10/16 12:51 ED Review of Systems ROS: Stated complaint: CHEST PAIN Other details as noted in HPI Comment: All other systems reviewed and negative Constitutional: denies: fever, malaise Respiratory: denies: cough Cardiovascular: chest pain Gastrointestinal: abdominal pain Neurological: denies: headache ED Past Medical Hx - Past Medical History Previous Medical History?: Yes Hx Hypertension: Yes 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, dysphasia) Hx Heart Attack/AMI: Yes (stents) Hx Congestive Heart Failure: No Hx Diabetes: No Hx Renal Disease: Yes Hx Arthritis: No Hx Headaches / Migraines: Yes Hx Seizures: Yes Hx Psychiatric Treatment: Yes (depression) Hx Asthma: No Hx COPD: No Additional medical history: lupus, ambulates with assistance - Surgical History Past Surgical History?: Yes Hx Coronary Stent: Yes Hx Open Heart Surgery: Yes (stents) - Social History Smoking Status: Current Every Day Smoker - Medications Home Medications: Home Medications Medication Instructions Recorded Confirmed Last Taken Type Aspirin [Aspirin BABY CHEW TAB] 81 mg PO QDAY #30 tab.chew 08/20/16 02/26/17 3 Days Ago Rx ~02/23/17 Carvedilol [Coreg] 3.125 mg PO BID #60 tablet 08/20/16 02/26/17 3 Days Ago Rx ~02/23/17 Clopidogrel [Plavix] 75 mg PO QDAY #30 tablet 08/20/16 02/26/17 3 Days Ago Rx ~02/23/17 SUMAtriptan succinate [SUMAtriptan 50 mg PO Q6H PRN #20 tablet 08/20/16 02/26/17 3 Days Ago Rx Succinate] ~02/23/17 Sertraline HCl [Zoloft] 100 mg PO QHS #60 tablet 08/20/16 02/26/17 3 Days Ago Rx ~02/23/17 Simvastatin [Zocor TAB] 40 mg PO QHS #30 tablet 08/20/16 02/26/17 3 Days Ago Rx ~02/23/17 levETIRAcetam [Keppra TAB] 500 mg PO BID #60 tablet 08/20/16 02/26/17 3 Days Ago Rx ~02/23/17 Chlorthalidone [Thalitone] 12.5 mg PO QDAY #30 tablet 02/27/17 Unknown Rx Hydroxychloroquine [Plaquenil] 200 mg PO QDAY #30 tablet 02/27/17 Unknown Rx Lisinopril [Zestril TAB] 40 mg PO QDAY #30 tablet 02/27/17 Unknown Rx methOCARBAMOL [Robaxin TAB] 500 mg PO BID PRN #30 tablet 02/27/17 Unknown Rx traMADol [Ultram 50 MG tab] 50 mg PO Q6HR PRN #13 tablet 07/26/17 Unknown Rx Acetaminophen/Codeine [Tylenol 1 tab PO Q6H PRN #12 tab 10/03/17 Unknown Rx /Codeine # 3 tab] cephALEXin [Keflex] 500 mg PO Q12HR #10 cap 10/03/17 Unknown Rx oxyCODONE /ACETAMINOPHEN [Percocet 1 tab PO Q6HR PRN #10 tablet 07/12/18 Unknown Rx 5/325] ED Physical Exam - General Limitations: Physical Limitation General appearance: alert, in no apparent distress, other (no acute distress, contracted right upper extremity, dysarthria, insightful,) - Head Head exam: Present: atraumatic, normocephalic - Eye Eye exam: Present: normal appearance - ENT ENT exam: Present: mucous membranes moist - Neck Neck exam: Present: normal inspection, full ROM - Respiratory Respiratory exam: Present: normal lung sounds bilaterally. Absent: respiratory distress, wheezes, rales, rhonchi - Cardiovascular Cardiovascular Exam: Present: regular rate, normal rhythm, normal heart sounds. Absent: systolic murmur, diastolic murmur, rubs, gallop - GI/Abdominal GI/Abdominal exam: Present: soft, normal bowel sounds. Absent: distended, tenderness, guarding, rebound - Extremities Exam Extremities exam: Present: other (contracted right upper extremity) - Back Exam Back exam: Present: normal inspection - Neurological Exam Neurological exam: Present: alert, oriented X3 - Psychiatric Psychiatric exam: Present: normal affect, normal mood - Skin Skin exam: Present: warm, dry, intact, normal color. Absent: rash ED Course Vital Signs 07/12/18 20:14 Temperature 98.8 F Pulse Rate 75 Respiratory 21 Rate Blood Pressure 151/100 [Right] O2 Sat by Pulse 100 Oximetry ED Medical Decision Making - EKG Data -: EKG Interpreted by Me EKG shows normal: sinus rhythm, axis, intervals, QRS complexes (low-voltage QRS), ST-T waves Rate: normal - Medical Decision Making Ms. Vasquez presents with diffuse body pain. No indication of acute process such as ACS or acute intra-abdominal process. She denies any trauma. EKG without acute findings. It is well documented that patient does have chronic pain disorder. I suspect that she has pain related to neuropathy and/or SLE. I have prescribed 10 tablets of Percocet. She did receive 2 tablets here in the ED. On discharge summary reviewed in 2017, patient consistently requested IV opioid medicine while hospitalized. Again, I do not detect any acute medical condition which needs further treatment or stabilization on today's encounter. I did review workup obtained on yesterday during immediate counter. She is followed by a primary care physician. Recommended that this physician manages her pain. Critical care attestation.: If time is entered above; I have spent that time in minutes in the direct care of this critically ill patient, excluding procedure time. ED Disposition Clinical Impression: Pain of left side of body, Lupus (systemic lupus erythematosus) Disposition: TO HOME OR SELFCARE Is pt being admited?: No Does the pt Need Aspirin: No Condition: Stable Additional Instructions: Please contact anika personal physician on Sunday. Prescriptions: oxyCODONE /ACETAMINOPHEN [Percocet 5/325] 1 tab PO Q6HR PRN #10 tablet PRN Reason: Pain Referrals: PRIMARY CARE, [Primary Care Provider] - RAPHAEL
[2018-07-12 21:42] VITALS: BP 140/81
== END 2018-07-12 21:42 | disposition home or self-care (01) ==
LOC: ED 18:51
DX: M32.9 Systemic lupus erythematosus, unspecified (principal); I10 Essential (primary) hypertension; G81.91 Hemiplegia, unspecified affecting right dominant side; G43.909 Migraine, unspecified, not intractable, without status migrainosus; F17.200 Nicotine dependence, unspecified, uncomplicated; Z79.82 Long term (current) use of aspirin; Z95.1 Presence of aortocoronary bypass graft
CPT/HCPCS: 93005; 93010; 99283

== ENCOUNTER 2018-11-01 07:25 | Emergency (ER) | payer MEDICARE, OTHER ==
[2018-11-01] MEDS ORDERED: SOLU-Medrol IV ONE (07:52)
[2018-11-01] MEDS ORDERED: FIORICET PO ONE (07:52)
[2018-11-01] MEDS ORDERED: MAGNESIUM SULFATE 2GM/50ML 2 GM/50 ML BAG IV ONE (07:52)
[2018-11-01] MEDS ORDERED: XYLOCAINE TOPICAL 4% TP ONE (07:52)
[2018-11-01] MEDS ORDERED: REGLAN IV ONE (07:52)
--- NOTE | 2018-11-01 07:52 | Emergency Department Report ---
ED General Adult HPI - General Chief complaint: Headache Stated complaint: HEADACHE Time Seen by Provider: 11/01/18 07:49 Source: patient, RN notes reviewed, old records reviewed Mode of arrival: Stretcher Limitations: Physical Limitation - History of Present Illness Initial comments: This is a 43-year-old female. I have evaluated this patient in the past. 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 She has chronic right upper extremity contracture, and chronic right lower extremity weakness. The patient today presents with a complaint of nontraumatic headache. She indicates the headache is present for weeks. She indicates the headache is frontal, and bitemporal. She describes the headache as a sensation of "boom boom." She indicates it is waxing and waning. She is not able to describe exacerbating or relieving factors. She indicates that the headache seems to radiate down to her anterior shins. The patient also describes a sensation of heart racing and heart palpitations. She makes no complaint of chest pain or exertional shortness of breath. She denies additional complaints. As per nursing staff verbal report, patient making multiple requests for narcotics for her headache, including Percocet and Dilaudid. -: Gradual, week(s) Location: head Radiation: other Quality: other Consistency: other Improves with: other Worsens with: other Associated Symptoms: other - Related Data Previous Rx's Medication Instructions Recorded Last Taken Type Aspirin [Aspirin BABY CHEW TAB] 81 mg PO QDAY #30 tab.chew 08/20/16 3 Days Ago Rx ~02/23/17 Carvedilol [Coreg] 3.125 mg PO BID #60 tablet 08/20/16 3 Days Ago Rx ~02/23/17 Clopidogrel [Plavix] 75 mg PO QDAY #30 tablet 08/20/16 3 Days Ago Rx ~02/23/17 SUMAtriptan succinate [SUMAtriptan 50 mg PO Q6H PRN #20 tablet 08/20/16 3 Days Ago Rx Succinate] ~02/23/17 Sertraline HCl [Zoloft] 100 mg PO QHS #60 tablet 08/20/16 3 Days Ago Rx ~02/23/17 Simvastatin [Zocor TAB] 40 mg PO QHS #30 tablet 08/20/16 3 Days Ago Rx ~02/23/17 levETIRAcetam [Keppra TAB] 500 mg PO BID #60 tablet 08/20/16 3 Days Ago Rx ~02/23/17 Chlorthalidone [Thalitone] 12.5 mg PO QDAY #30 tablet 02/27/17 Unknown Rx Hydroxychloroquine [Plaquenil] 200 mg PO QDAY #30 tablet 02/27/17 Unknown Rx Lisinopril [Zestril TAB] 40 mg PO QDAY #30 tablet 02/27/17 Unknown Rx Acetaminophen [Non-Aspirin Extra 500 mg PO Q6HR PRN #30 tablet 11/01/18 Unknown Rx Strength] Metoclopramide [Reglan] 10 mg PO QID PRN #30 tablet 11/01/18 Unknown Rx Potassium Chloride [K-Dur] 20 meq PO BID #30 tab 11/01/18 Unknown Rx Allergies Allergy/AdvReac Type Severity Reaction Status Date / Time No Known Allergies Allergy Verified 04/10/16 12:51 ED Review of Systems ROS: Stated complaint: HEADACHE Other details as noted in HPI Constitutional: denies: fever Eyes: denies: eye discharge ENT: denies: epistaxis Respiratory: denies: cough Cardiovascular: other. denies: chest pain Gastrointestinal: denies: vomiting Genitourinary: denies: dysuria Musculoskeletal: denies: back pain Neurological: headache, weakness (chronic right-sided weakness) ED Past Medical Hx - Past Medical History Hx Hypertension: Yes 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, dysphasia) Hx Heart Attack/AMI: Yes (stents) Hx Congestive Heart Failure: No Hx Diabetes: No Hx Renal Disease: Yes Hx Arthritis: No Hx Headaches / Migraines: Yes Hx Seizures: Yes Hx Psychiatric Treatment: Yes (depression) Hx Asthma: No Hx COPD: No Additional medical history: lupus, ambulates with assistance - Surgical History Hx Coronary Stent: Yes Hx Open Heart Surgery: Yes (stents) - Social History Smoking Status: Never Smoker Substance Use Type: None - Medications Home Medications: Home Medications Medication Instructions Recorded Confirmed Last Taken Type Aspirin [Aspirin BABY CHEW TAB] 81 mg PO QDAY #30 tab.chew 08/20/16 11/01/18 3 Days Ago Rx ~02/23/17 Carvedilol [Coreg] 3.125 mg PO BID #60 tablet 08/20/16 11/01/18 3 Days Ago Rx ~02/23/17 Clopidogrel [Plavix] 75 mg PO QDAY #30 tablet 08/20/16 11/01/18 3 Days Ago Rx ~02/23/17 SUMAtriptan succinate [SUMAtriptan 50 mg PO Q6H PRN #20 tablet 08/20/16 11/01/18 3 Days Ago Rx Succinate] ~02/23/17 Sertraline HCl [Zoloft] 100 mg PO QHS #60 tablet 08/20/16 11/01/18 3 Days Ago Rx ~02/23/17 Simvastatin [Zocor TAB] 40 mg PO QHS #30 tablet 08/20/16 11/01/18 3 Days Ago Rx ~02/23/17 levETIRAcetam [Keppra TAB] 500 mg PO BID #60 tablet 08/20/16 11/01/18 3 Days Ago Rx ~02/23/17 Chlorthalidone [Thalitone] 12.5 mg PO QDAY #30 tablet 02/27/17 11/01/18 Unknown Rx Hydroxychloroquine [Plaquenil] 200 mg PO QDAY #30 tablet 02/27/17 11/01/18 Unknown Rx Lisinopril [Zestril TAB] 40 mg PO QDAY #30 tablet 02/27/17 11/01/18 Unknown Rx Acetaminophen [Non-Aspirin Extra 500 mg PO Q6HR PRN #30 tablet 11/01/18 Unknown Rx Strength] Metoclopramide [Reglan] 10 mg PO QID PRN #30 tablet 11/01/18 Unknown Rx Potassium Chloride [K-Dur] 20 meq PO BID #30 tab 11/01/18 Unknown Rx ED Physical Exam - General Limitations: Physical Limitation General appearance: alert, in no apparent distress - Head Head exam: Present: atraumatic, normocephalic - Eye Eye exam: Present: normal appearance, EOMI. Absent: nystagmus - ENT ENT exam: Present: normal exam, normal orophraynx, mucous membranes moist, TM's normal bilaterally, normal external ear exam - Neck Neck exam: Present: normal inspection, full ROM. Absent: tenderness, meningismu s - Respiratory Respiratory exam: Present: normal lung sounds bilaterally. Absent: respiratory distress - Cardiovascular Cardiovascular Exam: Present: regular rate, normal rhythm, normal heart sounds. Absent: bradycardia, tachycardia, irregular rhythm, systolic murmur, diastolic murmur, rubs, gallop - GI/Abdominal GI/Abdominal exam: Present: soft. Absent: distended, tenderness, guarding, rebound, rigid, pulsatile mass - Extremities Exam Extremities exam: Present: normal inspection, full ROM (full range of motion left arm, left leg. Chronic weakness right arm, right leg.), other (2+ pulses noted in the bilateral upper, lower extremities. Compartments soft. No long bony tenderness. The pelvis is stable.). Absent: tenderness, calf tenderness - Back Exam Back exam: Present: normal inspection. Absent: tenderness, CVA tenderness (R), CVA tenderness (L), paraspinal tenderness, vertebral tenderness - Neurological Exam Neurological exam: Present: alert, motor sensory deficit (there is chronic weakness in the right arm and right leg. There is chronic decreased sensation to light touch right arm, right leg.), other (there is 5 out of 5 strength left arm, left leg. Sensation intact to light touch left arm, left leg. There is no facial droop. The tongue is midline. Speech is dysarthric. There is no elevation of the tongue. Hearing is grossly intact bilaterally. Shoulder shrug is intact bilaterally.) - Psychiatric Psychiatric exam: Present: anxious - Skin Skin exam: Present: warm, dry, intact, normal color. 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 10/23/2018 2 08/20/2018 LYRICA 150 MG CAPSULE 60.0 30 VE ADM [id number] [facility] ([id number]) 1 [facility] [place] 08/22/2018 2 08/20/2018 LYRICA 150 MG CAPSULE 60.0 30 VE ADM [id number] [facility] ([id number]) 0 [facility] [place] 07/13/2018 3 07/12/2018 OXYCODONE-ACETAMINOPHEN 5-325 10.0 3 VE JASMIN [id number] [facility] ([id number]) 0 25.0 [facility] [place] 05/14/2018 2 01/17/2018 LYRICA 150 MG CAPSULE 60.0 30 EB ANO [id number] [facility] ([id number]) 1 /[facility] [place] Reevaluation #2: 11/01/18 08:39 Differential diagnosis, including not limited to: Migraine headache, tension headache, cluster headache, narcotic dependence Assessment and plan: 43-year-old female who endorses headache for a few weeks. Her exam today similar to prior documented examinations. The patient is afebrile with reassuring vital signs, and in no acute distress. She makes m ultiple requests for narcotic therapy. Explained to patient that narcotic therapy not appropriate for chronic headaches. We will treat her with nonnarcotic pain medication. EKG and noncontrast CT scan of the brain ordered. Reevaluation #3: 11/01/18 10:42 Patient resting comfortably, and in no acute distress. We will replete hypokalemia. Remainder of laboratory studies unremarkable. Patient moving around in her stretcher without difficulty, moving her left arm and left leg. Reevaluation #4: 11/01/18 10:46 CT scan of the brain negative for acute disease. The patient endorses readiness for discharge. ED Medical Decision Making - Lab Data Result diagrams: 11/01/18 09:22 Vital Signs 11/01/18 07:36 Temperature 99.2 F Pulse Rate 76 Respiratory 16 Rate Blood Pressure 140/92 O2 Sat by Pulse 99 Oximetry - EKG Data -: EKG Interpreted by Ri EKG shows normal: sinus rhythm Rate: normal - EKG Data 11/01/18 09:11 This is a normal sinus rhythm 67 bpm, normal axis, QTC prolonged, OR interval prolonged, there is low voltage, there is a poor R-wave progression, this EKG is abnormal, the EKG is unchanged from prior EKG. - Radiology Data Radiology results: pending Critical care attestation.: If time is entered above; I have spent that time in minutes in the direct care of this critically ill patient, excluding procedure time. ED Disposition Clinical Impression: Hypokalemia Chronic headache Qualifiers: Headache type: unspecified Intractability: not intractable Qualified Code(s): R51 - Headache Disposition: DC-01 TO HOME OR SELFCARE Is pt being admited?: No Does the pt Need Aspirin: No Condition: Stable Additional Instructions: Take medications as needed/directed. Follow up with a primary care doctor for repeat checkup/evaluation within 2 weeks. Follow up with the primary care doctor or neurology physician within the next 4-6 weeks for chronic headaches. Return to the emergency room right away with new, worsening or different symptoms. I recommend the patient start keeping a headache diary, and follow-up with her primary care doctor or neurology doctor after headache diary has been completed, to further evaluate patient's headaches. headache diary [email or web address] Prescriptions: Potassium Chloride [K-Dur] 20 meq PO BID #30 tab Acetaminophen [Non-Aspirin Extra Strength] 500 mg PO Q6HR PRN #30 tablet PRN Reason: Pain , Severe (7-10) Metoclopramide [Reglan] 10 mg PO QID PRN #30 tablet PRN Reason: Nausea Referrals: NATALIE LENZ MD [Primary Care Provider] - 3-5 Days PATEL TORRES MD [Staff Physician] - 3-5 Days LUDWIN DÍAZ MD [Staff Physician] - 3-5 Days
[2018-11-01 08:06] VITALS: BP 140/92
[2018-11-01 10:11] LABS: BUN/Creatinine Ratio 16; Blood Urea Nitrogen 16 mg/dL (7-17); Calcium 9.5 mg/dL (8.4-10.2); Hemolysis Index 14
[2018-11-01] MEDS ORDERED: K-DUR PO ONE (10:41)
--- NOTE | 2018-11-01 10:44 | Cat Scan Report ---
CT HEAD WITHOUT CONTRAST INDICATION : headache. Chronic right-sided deficit from previous stroke. TECHNIQUE: Axial imaging performed from the skull apex through the skull base without the use of con trast. All CT scans at this location are performed using CT dose reduction for ALARA by means of aut omated exposure control. COMPARISON: 02/26/2017 FINDINGS: Parenchyma: A large chronic infarct is identified in the left frontotemporal region measuring 10.4 x 3.8 cm in axial plane. The remaining brain parenchyma demonstrates normal attenuation. No evidence f or hemorrhage, mass, mass effect or extra-axial fluid collection. Ventricles: There is mild compensatory enlargement of the left lateral ventricle due to the chronic infarct. Overall normal ventricular size. Soft tissues: Soft tissues including the orbits appear normal. Bones: No acute osseous abnormality. Sinuses: Sinuses and mastoid air cells are clear. IMPRESSION: Chronic left-sided infarct as described above. No acute intracranial process is identifie d. Signer Name: Richard Fallon Jr, MD Signed: 11/01/2018 10:40 AM Workstation Name: [id number]
== END 2018-11-01 11:05 | disposition home or self-care (01) ==
LOC: ED 07:25
DX: E87.6 Hypokalemia (principal); R51 Headache; M25.511 Pain in right shoulder; G89.29 Other chronic pain; I10 Essential (primary) hypertension; I25.2 Old myocardial infarction; I63.9 Cerebral infarction, unspecified; G43.909 Migraine, unspecified, not intractable, without status migrainosus; F32.9 Major depressive disorder, single episode, unspecified; Z95.5 Presence of coronary angioplasty implant and graft; Z79.899 Other long term (current) drug therapy
CPT/HCPCS: 36415; 70450; 80048; 82550; 83735; 84443; 93005; 93010; 96365; 96375; 99284; J2765; J2930; J3475

== ENCOUNTER 2018-12-04 20:51 | Emergency (ER) | payer MEDICARE, OTHER ==
--- NOTE | 2018-12-04 21:04 | Emergency Department Report ---
Blank Doc - Documentation Documentation: This is a 43-year-old female that presents with generalized body aches. This initial assessment/diagnostic orders/clinical plan/treatment(s) is/are subject to change based on patient's health status, clinical progression and re- assessment by fellow clinical providers in the ED. Further treatment and workup at subsequent clinical providers discretion. Patient/guardians urged not to elope from the ED as their condition may be serious if not clinically assessed and managed. Initial orders include: 1- Patient sent to [facility] for further evaluation and treatment 2- labs
[2018-12-04 21:10] VITALS: BP 153/106
[2018-12-04 21:51] LABS: Basophils # (Auto) 0.1 K/mm3 (0.0-0.1); Basophils % (Auto) 0.8 % (0.0-1.8); Eosinophils # (Auto) 0.1 K/mm3 (0.0-0.4); Eosinophils % (Auto) 1.2 % (0.0-4.3); Hematocrit 39.2 % (30.3-42.9); Hemoglobin 13.1 gm/dl (10.1-14.3); Lymphocytes # (Auto) 1.5 K/mm3 (1.2-5.4); Lymphocytes % (Auto) 22.8 % (13.4-35.0); Mean Corpuscular HGB Conc 33 % (30-34); Mean Corpuscular Volume 85 fl (79-97); Monocytes # (Auto) 0.4 K/mm3 (0.0-0.8); Monocytes % (Auto) 6.2 % (0.0-7.3); Platelet Count 340 K/mm3 (140-440); Red Cell Distribution Width 15.5 % (13.2-15.2)
[2018-12-04 22:12] LABS: Alanine Aminotransferase 17 units/L (7-56); Albumin 4.1 g/dL (3.9-5); BUN/Creatinine Ratio 17; Blood Urea Nitrogen 15 mg/dL (7-17); Calcium 10.6 mg/dL (8.4-10.2); Hemolysis Index 12
[2018-12-05] MEDS ORDERED: IBUPROFEN PO ONE (00:14)
[2018-12-05] MEDS ORDERED: NORCO 5/325 PO ONE (00:14)
[2018-12-05] MEDS ORDERED: ZOFRAN ODT PO ONE (00:14)
[2018-12-05 00:32] LABS: Bacteria,Urine 4+ /HPF (Negative); Bilirubin,Urine NEG (Negative); Blood,Urine NEG (Negative); Color,Urine Yellow (Yellow); Mucus,Urine FEW /HPF; Urobilinogen,Urine < 2.0 mg/dL (<2.0)
[2018-12-05] MEDS ORDERED: LEVAQUIN PO ONE (00:48)
--- NOTE | 2018-12-05 01:18 | Emergency Department Report ---
ED General Adult HPI - General Chief complaint: Pain General Stated complaint: PAIN ALL OVER Time Seen by Provider: 12/04/18 21:03 Source: patient Mode of arrival: Wheelchair Limitations: Physical Limitation - History of Present Illness Initial comments: Patient is a 43-year-old -[place] female with a history of SLE, hypertension, chronic stroke resulting in right-sided hemiparesis and chronic early motorized scooter bound presents to the ED with complaint of acute onset persistent and worsening low back pain with diffuse body aches, urinary frequency and urgency and dysuria for the last 4 days. Patient denies fever, chills, nausea, vomiting, diarrhea, abdominal pain, dizziness, cough, chest pain, shortness of breath or change in vision. MD Complaint: diffuse body aches, low back pain, dysuria -: Sudden, days(s) (4) Location: back Radiation: non-radiation Severity scale (0 -10): 7 Quality: aching, sharp Consistency: constant Improves with: none Worsens with: none Associated Symptoms: denies other symptoms, loss of appetite, malaise. denies: confusion, chest pain, cough, diaphoresis, fever/chills, nausea/vomiting, rash, seizure, shortness of breath, syncope, weakness, other Treatments Prior to Arrival: none - Related Data Previous Rx's Medication Instructions Recorded Last Taken Type Aspirin [Aspirin BABY CHEW TAB] 81 mg PO QDAY #30 tab.chew 08/20/16 3 Days Ago Rx ~02/23/17 Carvedilol [Coreg] 3.125 mg PO BID #60 tablet 08/20/16 3 Days Ago Rx ~02/23/17 Clopidogrel [Plavix] 75 mg PO QDAY #30 tablet 08/20/16 3 Days Ago Rx ~02/23/17 SUMAtriptan succinate [SUMAtriptan 50 mg PO Q6H PRN #20 tablet 08/20/16 3 Days Ago Rx Succinate] ~02/23/17 Sertraline HCl [Zoloft] 100 mg PO QHS #60 tablet 08/20/16 3 Days Ago Rx ~02/23/17 Simvastatin [Zocor TAB] 40 mg PO QHS #30 tablet 08/20/16 3 Days Ago Rx ~02/23/17 levETIRAcetam [Keppra TAB] 500 mg PO BID #60 tablet 08/20/16 3 Days Ago Rx ~02/23/17 Chlorthalidone [Thalitone] 12.5 mg PO QDAY #30 tablet 02/27/17 Unknown Rx Hydroxychloroquine [Plaquenil] 200 mg PO QDAY #30 tablet 02/27/17 Unknown Rx Lisinopril [Zestril TAB] 40 mg PO QDAY #30 tablet 02/27/17 Unknown Rx Acetaminophen [Non-Aspirin Extra 500 mg PO Q6HR PRN #30 tablet 11/01/18 Unknown Rx Strength] Metoclopramide [Reglan] 10 mg PO QID PRN #30 tablet 11/01/18 Unknown Rx Potassium Chloride [K-Dur] 20 meq PO BID #30 tab 11/01/18 Unknown Rx Cyclobenzaprine [Flexeril] 10 mg PO Q8H PRN #15 tablet 12/05/18 Unknown Rx Ibuprofen [Motrin] 600 mg PO Q8H PRN #20 tablet 12/05/18 Unknown Rx Sulfamethoxazole/Trimethoprim 1 each PO Q12H #20 tablet 12/05/18 Unknown Rx [Bactrim DS TAB] Allergies Allergy/AdvReac Type Severity Reaction Status Date / Time No Known Allergies Allergy Verified 04/10/16 12:51 ED Review of Systems ROS: Stated complaint: PAIN ALL OVER Other details as noted in HPI Comment: All other systems reviewed and negative Constitutional: denies: chills, fever Eyes: denies: eye pain, eye discharge, vision change ENT: denies: ear pain, throat pain Respiratory: denies: cough, shortness of breath, wheezing Cardiovascular: denies: chest pain, palpitations Endocrine: no symptoms reported Gastrointestinal: denies: abdominal pain, nausea, diarrhea Genitourinary: urgency, dysuria, frequency. denies: discharge Musculoskeletal: back pain, myalgia. denies: joint swelling, arthralgia Skin: denies: rash, lesions Neurological: denies: headache, weakness, paresthesias Psychiatric: denies: anxiety, depression Hematological/Lymphatic: denies: easy bleeding, easy bruising ED Past Medical Hx - Past Medical History Previous Medical History?: Yes Hx Hypertension: Yes 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, dysphasia) Hx Heart Attack/AMI: Yes (stents) Hx Congestive Heart Failure: No Hx Diabetes: No Hx Renal Disease: Yes Hx Arthritis: No Hx Headaches / Migraines: Yes Hx Seizures: Yes Hx Psychiatric Treatment: Yes (depression) Hx Asthma: No Hx COPD: No Additional medical history: lupus, ambulates with assistance - Surgical History Past Surgical History?: Yes Hx Coronary Stent: Yes Hx Open Heart Surgery: Yes (stents) - Social History Smoking Status: Never Smoker Substance Use Type: None - Medications Home Medications: Home Medications Medication Instructions Recorded Confirmed Last Taken Type Aspirin [Aspirin BABY CHEW TAB] 81 mg PO QDAY #30 tab.chew 08/20/16 11/01/18 3 Days Ago Rx ~02/23/17 Carvedilol [Coreg] 3.125 mg PO BID #60 tablet 08/20/16 11/01/18 3 Days Ago Rx ~02/23/17 Clopidogrel [Plavix] 75 mg PO QDAY #30 tablet 08/20/16 11/01/18 3 Days Ago Rx ~02/23/17 SUMAtriptan succinate [SUMAtriptan 50 mg PO Q6H PRN #20 tablet 08/20/16 11/01/18 3 Days Ago Rx Succinate] ~02/23/17 Sertraline HCl [Zoloft] 100 mg PO QHS #60 tablet 08/20/16 11/01/18 3 Days Ago Rx ~02/23/17 Simvastatin [Zocor TAB] 40 mg PO QHS #30 tablet 08/20/16 11/01/18 3 Days Ago Rx ~02/23/17 levETIRAcetam [Keppra TAB] 500 mg PO BID #60 tablet 08/20/16 11/01/18 3 Days Ago Rx ~02/23/17 Chlorthalidone [Thalitone] 12.5 mg PO QDAY #30 tablet 02/27/17 11/01/18 Unknown Rx Hydroxychloroquine [Plaquenil] 200 mg PO QDAY #30 tablet 02/27/17 11/01/18 Unkno wn Rx Lisinopril [Zestril TAB] 40 mg PO QDAY #30 tablet 02/27/17 11/01/18 Unknown Rx Acetaminophen [Non-Aspirin Extra 500 mg PO Q6HR PRN #30 tablet 11/01/18 Unknown Rx Strength] Metoclopramide [Reglan] 10 mg PO QID PRN #30 tablet 11/01/18 Unknown Rx Potassium Chloride [K-Dur] 20 meq PO BID #30 tab 11/01/18 Unknown Rx Cyclobenzaprine [Flexeril] 10 mg PO Q8H PRN #15 tablet 12/05/18 Unknown Rx Ibuprofen [Motrin] 600 mg PO Q8H PRN #20 tablet 12/05/18 Unknown Rx Sulfamethoxazole/Trimethoprim 1 each PO Q12H #20 tablet 12/05/18 Unknown Rx [Bactrim DS TAB] ED Physical Exam - General Limitations: Physical Limitation General appearance: alert, in no apparent distress - Head Head exam: Present: atraumatic, normocephalic, normal inspection - Eye Eye exam: Present: normal appearance, PERRL, EOMI. Absent: scleral icterus, conjunctival injection, nystagmus, periorbital swelling, periorbital tenderness Pupils: Present: normal accommodation - ENT ENT exam: Present: normal exam, normal orophraynx, mucous membranes moist, TM's normal bilaterally, normal external ear exam - Neck Neck exam: Present: normal inspection, full ROM - Respiratory Respiratory exam: Present: normal lung sounds bilaterally. Absent: respiratory distress, wheezes, rhonchi, stridor, chest wall tenderness, accessory muscle use, decreased breath sounds, prolonged expiratory - Cardiovascular Cardiovascular Exam: Present: normal rhythm, tachycardia, normal heart sounds. Absent: systolic murmur, diastolic murmur, rubs, gallop - GI/Abdominal GI/Abdominal exam: Present: soft, normal bowel sounds. Absent: tenderness, guarding, hyperactive bowel sounds, hypoactive bowel sounds, mass - Rectal Rectal exam: Present: deferred - Extremities Exam Extremities exam: Present: normal inspection, full ROM, normal capillary refill - Back Exam Back exam: Present: normal inspection, tenderness, muscle spasm, paraspinal tenderness (Palpable moderate lumbosacral tenderness). Absent: CVA tenderness (L) - Neurological Exam Neurological exam: Present: alert, oriented X3, CN II-XII intact, motor sensory deficit, other (Baseline chronic right-sided hemiparesis, and motorized scooter bound) - Psychiatric Psychiatric exam: Present: normal affect, normal mood, anxious - Skin Skin exam: Present: warm, dry, intact, normal color. Absent: rash ED Course Vital Signs 12/04/18 21:08 Temperature 98.8 F Pulse Rate 106 H Respiratory 18 Rate Blood Pressure 153/106 O2 Sat by Pulse 98 Oximetry - Reevaluation(s) Reevaluation #1: 12/05/18 01:25 Patient is a 43-year-old female with a history of stroke and status post right- sided hemiparesis and chronic motorized scooter bound and presented to the ED with diffuse body aches, low back pain and dysuria with urinary frequency and u rgency for 4 days. Lab test results were reviewed and are all unremarkable except for mild hypokalemia of 3.1 mmol per liter and significant uterine tract infection. Patient was treated for pain and also given oral antibiotics in the ED. Patient was discharged home on pain medications and antibiotics and advised to follow-up with primary care physician in 5-7 days for reevaluation. Patient is advised to return to the ED immediately if symptoms get worse. ED Medical Decision Making - Lab Data Result diagrams: 12/04/18 21:36 12/04/18 21:36 - Medical Decision Making Patient is a 43-year-old female with a history of stroke and status post right- sided hemiparesis and chronic motorized scooter bound and presented to the ED with diffuse body aches, low back pain and dysuria with urinary frequency and urgency for 4 days. Lab test results were reviewed and are all unremarkable except for mild hypokalemia of 3.1 mmol per liter and significant uterine tract infection. Patient was treated for pain and also given oral antibiotics in the ED. Patient was discharged home on pain medications and antibiotics and advised to follow-up with primary care physician in 5-7 days for reevaluation. Patient is advised to return to the ED immediately if symptoms get worse. - Differential Diagnosis muscle spasm of back, Acute UTI; Muscle strain Critical care attestation.: If time is entered above; I have spent that time in minutes in the direct care of this critically ill patient, excluding procedure time. ED Disposition Clinical Impression: Acute urinary tract infection, Spasm of muscle of lower back Disposition: DC-01 TO HOME OR SELFCARE Is pt being admited?: No Does the pt Need Aspirin: No Condition: Stable Instructions: Urinary Tract Infection in Women (ED), Muscle Spasm (ED) Additional Instructions: Take medications with food, drink plenty of fluids and follow-up with your primary care physician in 5-7 days for reevaluation. Return to the ED immediately if symptoms get worse. Prescriptions: Sulfamethoxazole/Trimethoprim [Bactrim DS TAB] 1 each PO Q12H #20 tablet Cyclobenzaprine [Flexeril] 10 mg PO Q8H PRN #15 tablet PRN Reason: Muscle Spasm Ibuprofen [Motrin] 600 mg PO Q8H PRN #20 tablet PRN Reason: Pain Referrals: PRIMARY CARE,MD [Primary Care Provider] - 3-5 Days Time of Disposition: 01:12 Print Language: CHINESE
== END 2018-12-05 01:30 | disposition home or self-care (01) ==
LOC: ED 20:51
DX: N39.0 Urinary tract infection, site not specified (principal); M62.830 Muscle spasm of back; I10 Essential (primary) hypertension; I25.2 Old myocardial infarction; G43.909 Migraine, unspecified, not intractable, without status migrainosus; F32.9 Major depressive disorder, single episode, unspecified; Z79.899 Other long term (current) drug therapy; Z86.73 Personal history of transient ischemic attack (TIA), and cerebral infarction without residual deficits; Z95.5 Presence of coronary angioplasty implant and graft; Z98.890 Other specified postprocedural states; Z85.528 Personal history of other malignant neoplasm of kidney
CPT/HCPCS: 36415; 80053; 81001; 84703; 85025; 87086; Q0162

== ENCOUNTER 2018-12-19 10:38 | Emergency (ER) | payer MEDICARE, OTHER ==
[2018-12-19] MEDS ORDERED: FLEXERIL PO ONE (11:36)
[2018-12-19] MEDS ORDERED: TORADOL IM ONE (11:36)
--- NOTE | 2018-12-19 12:22 | Emergency Department Report ---
ED General Adult HPI - General Chief complaint: Fall Stated complaint: FALL/(R) KNEE/LEG PAIN/RASH Time Seen by Provider: 12/19/18 11:22 Source: patient, family Mode of arrival: Wheelchair Limitations: Physical Limitation - History of Present Illness Initial comments: Physical 3-year-old female wheelchair bound presents to ED complaining of right knee pain status post felt 2 days ago. Patient states that she was getting up chest fell and hit her right knee. She denies hitting her head or any other trauma. She also complaining that she has small rash on her neck. Severity scale (0 -10): 7 - Related Data Previous Rx's Medication Instructions Recorded Last Taken Type Aspirin [Aspirin BABY CHEW TAB] 81 mg PO QDAY #30 tab.chew 08/20/16 3 Days Ago Rx ~02/23/17 Carvedilol [Coreg] 3.125 mg PO BID #60 tablet 08/20/16 3 Days Ago Rx ~02/23/17 Clopidogrel [Plavix] 75 mg PO QDAY #30 tablet 08/20/16 3 Days Ago Rx ~02/23/17 SUMAtriptan succinate [SUMAtriptan 50 mg PO Q6H PRN #20 tablet 08/20/16 3 Days Ago Rx Succinate] ~02/23/17 Sertraline HCl [Zoloft] 100 mg PO QHS #60 tablet 08/20/16 3 Days Ago Rx ~02/23/17 Simvastatin [Zocor TAB] 40 mg PO QHS #30 tablet 08/20/16 3 Days Ago Rx ~02/23/17 levETIRAcetam [Keppra TAB] 500 mg PO BID #60 tablet 08/20/16 3 Days Ago Rx ~02/23/17 Chlorthalidone [Thalitone] 12.5 mg PO QDAY #30 tablet 02/27/17 Unknown Rx Hydroxychloroquine [Plaquenil] 200 mg PO QDAY #30 tablet 02/27/17 Unknown Rx Lisinopril [Zestril TAB] 40 mg PO QDAY #30 tablet 02/27/17 Unknown Rx Acetaminophen [Non-Aspirin Extra 500 mg PO Q6HR PRN #30 tablet 11/01/18 Unknown Rx Strength] Metoclopramide [Reglan] 10 mg PO QID PRN #30 tablet 11/01/18 Unknown Rx Potassium Chloride [K-Dur] 20 meq PO BID #30 tab 11/01/18 Unknown Rx Cyclobenzaprine [Flexeril] 10 mg PO Q8H PRN #15 tablet 12/05/18 Unknown Rx Ibuprofen [Motrin] 600 mg PO Q8H PRN #20 tablet 12/05/18 Unknown Rx Sulfamethoxazole/Trimethoprim 1 each PO Q12H #20 tablet 12/05/18 Unknown Rx [Bactrim DS TAB] Cyclobenzaprine [Flexeril] 10 mg PO QHS PRN #20 tablet 12/19/18 Unknown Rx Ibuprofen [Motrin 800 MG tab] 800 mg PO Q8HR PRN #30 tablet 12/19/18 Unknown Rx Allergies Allergy/AdvReac Type Severity Reaction Status Date / Time No Known Allergies Allergy Verified 12/19/18 10:44 ED Review of Systems ROS: Stated complaint: FALL/(R) KNEE/LEG PAIN/RASH Other details as noted in HPI Comment: All other systems reviewed and negative ED Past Medical Hx - Past Medical History Hx Hypertension: Yes 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, dysphasia) Hx Heart Attack/AMI: Yes (stents) Hx Congestive Heart Failure: No Hx Diabetes: No Hx Renal Disease: Yes Hx Arthritis: No Hx Headaches / Migraines: Yes Hx Seizures: Yes Hx Psychiatric Treatment: Yes (depression) Hx Asthma: No Hx COPD: No Additional medical history: lupus, ambulates with assistance - Surgical History Hx Coronary Stent: Yes Hx Open Heart Surgery: Yes (stents) - Social History Smoking Status: Never Smoker Substance Use Type: None - Medications Home Medications: Home Medications Medication Instructions Recorded Confirmed Last Taken Type Aspirin [Aspirin BABY CHEW TAB] 81 mg PO QDAY #30 tab.chew 08/20/16 11/01/18 3 Days Ago Rx ~02/23/17 Carvedilol [Coreg] 3.125 mg PO BID #60 tablet 08/20/16 11/01/18 3 Days Ago Rx ~02/23/17 Clopidogrel [Plavix] 75 mg PO QDAY #30 tablet 08/20/16 11/01/18 3 Days Ago Rx ~02/23/17 SUMAtriptan succinate [SUMAtriptan 50 mg PO Q6H PRN #20 tablet 08/20/16 11/01/18 3 Days Ago Rx Succinate] ~02/23/17 Sertraline HCl [Zoloft] 100 mg PO QHS #60 tablet 08/20/16 11/01/18 3 Days Ago Rx ~02/23/17 Simvastatin [Zocor TAB] 40 mg PO QHS #30 tablet 08/20/16 11/01/18 3 Days Ago Rx ~02/23/17 levETIRAcetam [Keppra TAB] 500 mg PO BID #60 tablet 08/20/16 11/01/18 3 Days Ago Rx ~02/23/17 Chlorthalidone [Thalitone] 12.5 mg PO QDAY #30 tablet 02/27/17 11/01/18 Unknown Rx Hydroxychloroquine [Plaquenil] 200 mg PO QDAY #30 tablet 02/27/17 11/01/18 U nknown Rx Lisinopril [Zestril TAB] 40 mg PO QDAY #30 tablet 02/27/17 11/01/18 Unknown Rx Acetaminophen [Non-Aspirin Extra 500 mg PO Q6HR PRN #30 tablet 11/01/18 Unknown Rx Strength] Metoclopramide [Reglan] 10 mg PO QID PRN #30 tablet 11/01/18 Unknown Rx Potassium Chloride [K-Dur] 20 meq PO BID #30 tab 11/01/18 Unknown Rx Cyclobenzaprine [Flexeril] 10 mg PO Q8H PRN #15 tablet 12/05/18 Unknown Rx Ibuprofen [Motrin] 600 mg PO Q8H PRN #20 tablet 12/05/18 Unknown Rx Sulfamethoxazole/Trimethoprim 1 each PO Q12H #20 tablet 12/05/18 Unknown Rx [Bactrim DS TAB] Cyclobenzaprine [Flexeril] 10 mg PO QHS PRN #20 tablet 12/19/18 Unknown Rx Ibuprofen [Motrin 800 MG tab] 800 mg PO Q8HR PRN #30 tablet 12/19/18 Unknown Rx ED Physical Exam - General Limitations: No Limitations, Physical Limitation General appearance: alert, in no apparent distress - Head Head exam: Present: atraumatic, normocephalic - Eye Eye exam: Present: normal appearance - ENT ENT exam: Present: mucous membranes moist - Neck Neck exam: Present: normal inspection - Respiratory Respiratory exam: Present: normal lung sounds bilaterally. Absent: respiratory distress - Cardiovascular Cardiovascular Exam: Present: regular rate, normal rhythm. Absent: systolic murmur, diastolic murmur, rubs, gallop - GI/Abdominal GI/Abdominal exam: Present: soft, normal bowel sounds - Extremities Exam Extremities exam: Present: normal inspection - Back Exam Back exam: Present: normal inspection - Neurological Exam Neurological exam: Present: alert, oriented X3 - Psychiatric Psychiatric exam: Present: normal affect, normal mood - Skin Skin exam: Present: warm, dry, intact, normal color. Absent: rash ED Course Vital Signs 12/19/18 12/19/18 12/19/18 11:04 11:20 13:17 Temperature 97.9 F Pulse Rate 86 81 Respiratory 16 16 16 Rate Blood Pressure 129/91 130/90 [Left] O2 Sat by Pulse 99 99 Oximetry ED Medical Decision Making - Radiology Data Radiology results: report reviewed, image reviewed RIGHT KNEE HISTORY: Pain. COMPARISON: None. TECHNIQUE: 3 views of the right knee obtained. FINDINGS: Bones: No fracture or dislocation. Joint spaces: Mild joint space narrowing, greater on the medial side. Medial and lateral osteophytes. Small patellofemoral osteophytes. No joint effusion.. Soft tissues: No significant abnormality. Additional findings: None. IMPRESSION: 1. Moderate osteoarthritis. Signer Name: Ady Mckeon MD Signed: 12/19/2018 12:38 PM Workstation Name: [id number] Transcribed By: REF Dictated By: ADY MCKEON MD Electronically Authenticated By: ADY MCKEON MD Signed Date/Time: 12/19/18 1238 - Medical Decision Making 43-year-old female presents to ED with right knee pain status post fall ED course: Patient received Toradol and Flexeril in ED. Story of the right knee obtained. There is no acute fracture or dislocation noted. Vital signs are normal patient is in no acute distress Discussed with patient follow-up with primary care physician. Discussed the patient and take medications as prescribed. Patient has no neurological deficit. Patient is alert and oriented 3 and understands all instructions given. Discussed drowsiness effect of Flexeril makes her drowsy and not to operate machinery while taking flexeril Critical care attestation.: If time is entered above; I have spent that time in minutes in the direct care of this critically ill patient, excluding procedure time. ED Disposition Clinical Impression: Right anterior knee pain, Osteoarthritis of knee Disposition: DC-01 TO HOME OR SELFCARE Is pt being admited?: No Does the pt Need Aspirin: No Condition: Stable Instructions: Arthralgia (ED), Fall Prevention (ED) Additional Instructions: Make sure to follow up with the primary care physician as discussed. Take all your medications as you've been prescribed. If you have any worsening symptoms or develop new symptoms please return to ED immediately. Prescriptions: Cyclobenzaprine [Flexeril] 10 mg PO QHS PRN #20 tablet PRN Reason: Muscle Spasm Ibuprofen [Motrin 800 MG tab] 800 mg PO Q8HR PRN #30 tablet PRN Reason: Pain Referrals: NATALIE LENZ MD [Primary Care Provider] - 3-5 Days MORGAN THOMPSON MD [Staff Physician] - 3-5 Days Forms: Work/School Release Form(ED) Time of Disposition: 12:59
--- NOTE | 2018-12-19 12:42 | XRay Report ---
RIGHT KNEE HISTORY: Pain. COMPARISON: None. TECHNIQUE: 3 views of the right knee obtained. FINDINGS: Bones: No fracture or dislocation. Joint spaces: Mild joint space narrowing, greater on the medial side. Medial and lateral osteophytes. Small patellofemoral osteophytes. No joint effusion.. Soft tissues: No significant abnormality. Additional findings: None. IMPRESSION: 1. Moderate osteoarthritis. Signer Name: Ady Schwab MD Signed: 12/19/2018 12:38 PM Workstation Name: [id number]
[2018-12-19 13:18] VITALS: BP 130/90
== END 2018-12-19 13:17 | disposition home or self-care (01) ==
LOC: ED 10:38
DX: M17.11 Unilateral primary osteoarthritis, right knee (principal); I10 Essential (primary) hypertension; Z86.73 Personal history of transient ischemic attack (TIA), and cerebral infarction without residual deficits; G43.909 Migraine, unspecified, not intractable, without status migrainosus; F32.9 Major depressive disorder, single episode, unspecified; Z95.1 Presence of aortocoronary bypass graft; Z98.890 Other specified postprocedural states; Z79.899 Other long term (current) drug therapy; Z79.82 Long term (current) use of aspirin; W18.30XA Fall on same level, unspecified, initial encounter; Y93.89 Activity, other specified; Y92.89 Other specified places as the place of occurrence of the external cause; Y99.8 Other external cause status
CPT/HCPCS: 73562; 96372; 99283; J1885

== ENCOUNTER 2018-12-24 13:40 | Emergency (ER) | payer MEDICARE, OTHER ==
[2018-12-24 14:11] VITALS: BP 142/111
[2018-12-24] MEDS ORDERED: DELTASONE PO ONE (14:12)
--- NOTE | 2018-12-24 14:12 | Event Note ---
ED Screening Note Date of service: 12/24/18 Time: 14:11 ED Screening Note: 43 y o female on wheel chair presents with worsening dry peeling itching rash to her neck and chin This initial assessment/diagnostic orders/clinical plan/treatment(s) is/are subject to change based on patients health status, clinical progression and re- assessment by fellow clinical providers in the ED. Further treatment and workup at subsequent clinical providers discretion. Patient/guardian urged not to elope from the ED as their condition may be serious if not clinically assessed and managed. Initial orders include: benadryl and prednisone ordered
[2018-12-24] MEDS ORDERED: BENADRYL PO ONE (14:14)
--- NOTE | 2018-12-24 14:50 | Emergency Department Report ---
ED Rash HPI - HPI Chief Complaint: Skin Rash Stated Complaint: RASH ON NECK Time Seen by Provider: 12/24/18 14:10 Duration: weeks Location: Neck Suspected Cause: Unknown Rash Symptoms: Yes Itching, Yes Peeling, No Facial Swelling, No Tongue/Oral Swelling, No Breathing Difficulties, No Choking Sensation, No Wheezing/Dyspnea, No Blistering, No Fever, No Myalgias Severity: mild (rash x weeks described as burning) ED Review of Systems ROS: Stated complaint: RASH ON NECK Other details as noted in HPI Comment: All other systems reviewed and negative Skin: as per HPI, rash ED Past Medical Hx - Past Medical History Hx Hypertension: Yes 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, dysphasia) Hx Heart Attack/AMI: Yes (stents) Hx Congestive Heart Failure: No Hx Diabetes: No Hx Renal Disease: Yes Hx Arthritis: No Hx Headaches / Migraines: Yes Hx Seizures: Yes Hx Psychiatric Treatment: Yes (depression) Hx Asthma: No Hx COPD: No Additional medical history: lupus, ambulates with assistance - Surgical History Past Surgical History?: Yes Hx Coronary Stent: Yes Hx Open Heart Surgery: Yes (stents) - Social History Smoking Status: Former Smoker Substance Use Type: Alcohol - Medications Home Medications: Home Medications Medication Instructions Recorded Confirmed Last Taken Type Aspirin [Aspirin BABY CHEW TAB] 81 mg PO QDAY #30 tab.chew 08/20/16 11/01/18 3 Days Ago Rx ~02/23/17 Carvedilol [Coreg] 3.125 mg PO BID #60 tablet 08/20/16 11/01/18 3 Days Ago Rx ~02/23/17 Clopidogrel [Plavix] 75 mg PO QDAY #30 tablet 08/20/16 11/01/18 3 Days Ago Rx ~02/23/17 SUMAtriptan succinate [SUMAtriptan 50 mg PO Q6H PRN #20 tablet 08/20/16 11/01/18 3 Days Ago Rx Succinate] ~02/23/17 Sertraline HCl [Zoloft] 100 mg PO QHS #60 tablet 08/20/16 11/01/18 3 Days Ago Rx ~02/23/17 Simvastatin [Zocor TAB] 40 mg PO QHS #30 tablet 08/20/16 11/01/18 3 Days Ago Rx ~02/23/17 levETIRAcetam [Keppra TAB] 500 mg PO BID #60 tablet 08/20/16 11/01/18 3 Days Ago Rx ~02/23/17 Chlorthalidone [Thalitone] 12.5 mg PO QDAY #30 tablet 02/27/17 11/01/18 Unknown Rx Hydroxychloroquine [Plaquenil] 200 mg PO QDAY #30 tablet 02/27/17 11/01/18 Unknown Rx Lisinopril [Zestril TAB] 40 mg PO QDAY #30 tablet 02/27/17 11/01/18 Unknown Rx Acetaminophen [Non-Aspirin Extra 500 mg PO Q6HR PRN #30 tablet 11/01/18 Unknown Rx Strength] Metoclopramide [Reglan] 10 mg PO QID PRN #30 tablet 11/01/18 Unknown Rx Potassium Chloride [K-Dur] 20 meq PO BID #30 tab 11/01/18 Unknown Rx Cyclobenzaprine [Flexeril] 10 mg PO Q8H PRN #15 tablet 12/05/18 Unknown Rx Ibuprofen [Motrin] 600 mg PO Q8H PRN #20 tablet 12/05/18 Unknown Rx Sulfamethoxazole/Trimethoprim 1 each PO Q12H #20 tablet 12/05/18 Unknown Rx [Bactrim DS TAB] Cyclobenzaprine [Flexeril] 10 mg PO QHS PRN #20 tablet 12/19/18 Unknown Rx Ibuprofen [Motrin 800 MG tab] 800 mg PO Q8HR PRN #30 tablet 12/19/18 Unknown Rx predniSONE [Deltasone] 40 mg PO QDAY #8 tab 12/24/18 Unknown Rx Rash Exam - Exam General: Vital signs noted. No distress. Alert and acting appropriately. HEENT: No Periorbital Edema, No Conjuctival Injection, No Perioral Edema, No Tongue Edema, No Uvular Edema, No Compromised Airway, No Drooling Lungs: Yes Good Air Exchange (Normal Breath Sounds), No Wheezes, No Ronchi, No Stridor, No Cough, No Labored Respirations, No Retractions, No Use of Accessory Muscles, No Other Abnormal Lung Sounds Heart: Yes Regular, No Murmur Skin: Yes Other (peeling, scaly rash to neck/chin, moreso on L) ED Course Vital Signs 12/24/18 14:09 Temperature 98.3 F Pulse Rate 83 Respiratory 18 Rate Blood Pressure 142/111 O2 Sat by Pulse 99 Oximetry ED Medical Decision Making - Medical Decision Making nonspecific rash, ? now resolving zoster as seems more unilateral and burning sensation has been present for a number of weeks will give steroid and refer to derm - Differential Diagnosis zoster, dermatitis Critical care attestation.: If time is entered above; I have spent that time in minutes in the direct care of this critically ill patient, excluding procedure time. ED Disposition Clinical Impression: Rash and other nonspecific skin eruption Disposition: DC- TO HOME OR SELFCARE Is pt being admited?: No Condition: Good Instructions: Acute Rash (ED) Prescriptions: predniSONE [Deltasone] 40 mg PO QDAY #8 tab Referrals: ANGELA DIAZ MD [Referring] - 3-5 Days Time of Disposition: 14:53
== END 2018-12-24 15:00 | disposition home or self-care (01) ==
LOC: ED 13:40
DX: R21 Rash and other nonspecific skin eruption (principal); I10 Essential (primary) hypertension; F32.9 Major depressive disorder, single episode, unspecified; M32.9 Systemic lupus erythematosus, unspecified; G43.909 Migraine, unspecified, not intractable, without status migrainosus; Z95.1 Presence of aortocoronary bypass graft; Z87.891 Personal history of nicotine dependence; Z79.82 Long term (current) use of aspirin; Z86.73 Personal history of transient ischemic attack (TIA), and cerebral infarction without residual deficits; Z87.442 Personal history of urinary calculi; Z79.899 Other long term (current) drug therapy
CPT/HCPCS: 99282; J7512

== ENCOUNTER 2019-01-24 10:34 | Emergency (ER) | payer MEDICARE, OTHER ==
--- NOTE | 2019-01-24 11:17 | Emergency Department Report ---
Minor Respiratory - HPI Chief Complaint: Upper Respiratory Infection Stated Complaint: FLU LIKE SYM Time Seen by Provider: 01/24/19 11:15 ED Review of Systems ROS: Stated complaint: FLU LIKE SYM Other details as noted in HPI ED Past Medical Hx - Past Medical History Previous Medical History?: Yes Hx Hypertension: Yes 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, dysphasia) Hx Heart Attack/AMI: Yes (stents) Hx Congestive Heart Failure: No Hx Diabetes: No Hx Renal Disease: Yes Hx Arthritis: No Hx Headaches / Migraines: Yes Hx Seizures: Yes Hx Psychiatric Treatment: Yes (depression) Hx Asthma: No Hx COPD: No Additional medical history: lupus, ambulates with assistance - Surgical History Past Surgical History?: Yes Hx Coronary Stent: Yes Hx Open Heart Surgery: Yes (stents) - Social History Smoking Status: Never Smoker Substance Use Type: None - Medications Home Medications: Home Medications Medication Instructions Recorded Confirmed Last Taken Type Aspirin [Aspirin BABY CHEW TAB] 81 mg PO QDAY #30 tab.chew 08/20/16 11/01/18 3 Days Ago Rx ~02/23/17 Carvedilol [Coreg] 3.125 mg PO BID #60 tablet 08/20/16 11/01/18 3 Days Ago Rx ~02/23/17 Clopidogrel [Plavix] 75 mg PO QDAY #30 tablet 08/20/16 11/01/18 3 Days Ago Rx ~02/23/17 SUMAtriptan succinate [SUMAtriptan 50 mg PO Q6H PRN #20 tablet 08/20/16 11/01/18 3 Days Ago Rx Succinate] ~02/23/17 Sertraline HCl [Zoloft] 100 mg PO QHS #60 tablet 08/20/16 11/01/18 3 Days Ago Rx ~02/23/17 Simvastatin [Zocor TAB] 40 mg PO QHS #30 tablet 08/20/16 11/01/18 3 Days Ago Rx ~02/23/17 levETIRAcetam [Keppra TAB] 500 mg PO BID #60 tablet 08/20/16 11/01/18 3 Days Ago Rx ~02/23/17 Chlorthalidone [Thalitone] 12.5 mg PO QDAY #30 tablet 02/27/17 11/01/18 Unknown Rx Hydroxychloroquine [Plaquenil] 200 mg PO QDAY #30 tablet 02/27/17 11/01/18 Unknown Rx Lisinopril [Zestril TAB] 40 mg PO QDAY #30 tablet 02/27/17 11/01/18 Unknown Rx Acetaminophen [Non-Aspirin Extra 500 mg PO Q6HR PRN #30 tablet 11/01/18 Unknown Rx Strength] Metoclopramide [Reglan] 10 mg PO QID PRN #30 tablet 11/01/18 Unknown Rx Potassium Chloride [K-Dur] 20 meq PO BID #30 tab 11/01/18 Unknown Rx Cyclobenzaprine [Flexeril] 10 mg PO Q8H PRN #15 tablet 12/05/18 Unknown Rx Ibuprofen [Motrin] 600 mg PO Q8H PRN #20 tablet 12/05/18 Unknown Rx Sulfamethoxazole/Trimethoprim 1 each PO Q12H #20 tablet 12/05/18 Unknown Rx [Bactrim DS TAB] Cyclobenzaprine [Flexeril] 10 mg PO QHS PRN #20 tablet 12/19/18 Unknown Rx Ibuprofen [Motrin 800 MG tab] 800 mg PO Q8HR PRN #30 tablet 12/19/18 Unknown Rx predniSONE [Deltasone] 40 mg PO QDAY #8 tab 12/24/18 Unknown Rx Minor Respiratory Exam - Exam General: Vital signs noted. No distress. Alert and acting appropriately. Neurologic: Alert and oriented, no deficits. Musculoskeletal: Unremarkable. ED Course Vital Signs 01/24/19 10:55 Temperature 98.1 F Pulse Rate 89 Respiratory 20 Rate Blood Pressure 160/107 [Left] O2 Sat by Pulse 99 Oximetry Critical care attestation.: If time is entered above; I have spent that time in minutes in the direct care of this critically ill patient, excluding procedure time. ED Disposition Condition: Stable
--- NOTE | 2019-01-24 11:18 | Emergency Department Report ---
Minor Respiratory - HPI Chief Complaint: Upper Respiratory Infection Stated Complaint: FLU LIKE SYM Time Seen by Provider: 01/24/19 11:15 Duration: 3 Days Pain Location: Chest Severity: mild Minor Respiratory: Yes Able to Tolerate Fluids, No Rhinorrhea, No Sore Throat, No Ear Pain, No Cough, No Sick Contacts, No Hemoptysis, No Chest Pain, No Shortness of Breath, No Fever Other History: 43 YO AA FEMALE COMES TO ER P SEEING THAT RUSSELL HAS PNEUMONIA. SHE NOW THINKS SHE DOES. REQUESTING DILAUDID SHOT THAT THEY GIVE ME ALL THE TIMES I COME HERE FOR PAIN. NO FEVER. NO CHILLS. NO N/V/D. NO COUGH OR CONGESTION. 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 USUAL CARE AT [facility]; SHE HAS NOT SEEN THEM FOR THIS CONCERN. ED Review of Systems ROS: Stated complaint: FLU LIKE SYM Other details as noted in HPI Comment: All other systems reviewed and negative ED Past Medical Hx - Past Medical History Previous Medical History?: Yes Hx Hypertension: Yes 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, dysphasia) Hx Heart Attack/AMI: Yes (stents) Hx Congestive Heart Failure: No Hx Diabetes: No Hx Renal Disease: Yes Hx Arthritis: No Hx Headaches / Migraines: Yes Hx Seizures: Yes Hx Psychiatric Treatment: Yes (depression) Hx Asthma: No Hx COPD: No Additional medical history: lupus, ambulates with assistance - Surgical History Past Surgical History?: Yes Hx Coronary Stent: Yes Hx Open Heart Surgery: Yes (stents) - Family History Family history: no significant - Social History Smoking Status: Never Smoker Substance Use Type: None - Medications Home Medications: Home Medications Medication Instructions Recorded Confirmed Last Taken Type Aspirin [Aspirin BABY CHEW TAB] 81 mg PO QDAY #30 tab.chew 08/20/16 11/01/18 3 Days Ago Rx ~02/23/17 Carvedilol [Coreg] 3.125 mg PO BID #60 tablet 08/20/16 11/01/18 3 Days Ago Rx ~02/23/17 Clopidogrel [Plavix] 75 mg PO QDAY #30 tablet 08/20/16 11/01/18 3 Days Ago Rx ~02/23/17 SUMAtriptan succinate [SUMAtriptan 50 mg PO Q6H PRN #20 tablet 08/20/16 11/01/18 3 Days Ago Rx Succinate] ~10/27/17 Sertraline HCl [Zoloft] 100 mg PO QHS #60 tablet 08/20/16 11/01/18 3 Days Ago Rx ~02/23/17 Simvastatin [Zocor TAB] 40 mg PO QHS #30 tablet 08/20/16 11/01/18 3 Days Ago Rx ~02/23/17 levETIRAcetam [Keppra TAB] 500 mg PO BID #60 tablet 08/20/16 11/01/18 3 Days Ago Rx ~02/23/17 Chlorthalidone [Thalitone] 12.5 mg PO QDAY #30 tablet 02/27/17 11/01/18 Unknown Rx Hydroxychloroquine [Plaquenil] 200 mg PO QDAY #30 tablet 02/27/17 11/01/18 Unknown Rx Lisinopril [Zestril TAB] 40 mg PO QDAY #30 tablet 02/27/17 11/01/18 Unknown Rx Ibuprofen [Motrin] 800 mg PO Q8HR PRN #30 tablet 01/24/19 Unknown Rx Ibuprofen [Motrin] 800 mg PO Q8HR PRN #30 tablet 01/24/19 Unknown Rx Minor Respiratory Exam - Exam General: Vital signs noted. No distress. Alert and acting appropriately. HEENT: Yes Moist Mucous Membranes, No Pharyngeal Erythema, No Pharyngeal Exudates, No Rhinorrhea, No Conjuctival Injection, No Frontal Tenderness, No Maxillary Tenderness Ear: Left TM Bulge, Neither TM Erythema, Neither EAC Pain, Neither EAC Discharge Neck: Yes Supple, No Adenopathy Lungs: Yes Good Air Exchange, No Wheezes, No Ronchi, No Stridor, No Cough, No Labored Respirations, No Retractions, No Use of Accessory Muscles, No Other Abnormal Lung Sounds Heart: Yes Regular, No Murmur Abdomen: Yes Normal Bowel Sounds, No Tenderness, No Peritoneal Signs Skin: No Rash Neurologic: Alert and oriented, no deficits. Musculoskeletal: Unremarkable. ED Course Vital Signs 01/24/19 10:55 Temperature 98.1 F Pulse Rate 89 Respiratory 20 Rate Blood Pressure 160/107 [Left] O2 Sat by Pulse 99 Oximetry ED Medical Decision Making - Radiology Data Radiology results: report reviewed, image reviewed - Medical Decision Making xray nap VSS NO FEVER NO CHILLS NO CP NO SOB NO WHEEZING TAKING PO NO COUGH NO SPUTUM BP ELEVATED- DID NOT TAKE BP MEDS UNTIL SHE GOT TO ER SHE HAS CHRONIC HTN NO CP OR SOB PER MOTHER IN HER USUAL STATE OF HEALTH [facility] FOR PAIN DC HOME WITH DC PLAN OF CARE. TAKING PO. IN NAD. Vital Signs 01/24/19 01/24/19 10:55 12:41 Temperature 98.1 F Pulse Rate 89 81 Respiratory 20 16 Rate Blood Pressure 160/107 151/100 [Left] O2 Sat by Pulse 99 98 Oximetry - Differential Diagnosis pna/urti Critical care attestation.: If time is entered above; I have spent that time in minutes in the direct care of this critically ill patient, excluding procedure time. ED Disposition Clinical Impression: HTN (hypertension), Debility, Chronic pain, Wellness examination, History of CVA with residual deficit Disposition: DC-01 TO HOME OR SELFCARE Is pt being admited?: No Does the pt Need Aspirin: No Condition: Stable Instructions: Hypertension (ED) Additional Instructions: continue home meds motrin or tylenol if for fever or pain hydrate well with water good hand washing get your flu shot [facility] Prescriptions: Ibuprofen [Motrin] 800 mg PO Q8HR PRN #30 tablet PRN Reason: Pain, Moderate (4-6) Ibuprofen [Motrin] 800 mg PO Q8HR PRN #30 tablet PRN Reason: Pain, Moderate (4-6) Referrals: PRIMARY CAREMD [Primary Care Provider] - 3-5 Days BRYAN CORTEZ MD [Staff Physician] - 3-5 Days Time of Disposition: 12:23
--- NOTE | 2019-01-24 12:20 | XRay Report ---
CHEST 1 VIEW INDICATION / CLINICAL INFORMATION: SOB. COMPARISON: 02/25/2017 FINDINGS: SUPPORT DEVICES: None. HEART / MEDIASTINUM: No significant abnormality. LUNGS / PLEURA: No significant pulmonary or pleural abnormality.. No pneumothorax. ADDITIONAL FINDINGS: No significant additional findings. IMPRESSION: 1. No acute findings. Signer Name: Augustin Bryson MD Signed: 01/24/2019 12:15 PM Workstation Name: [id number]
[2019-01-24] MEDS ORDERED: dexAMETHasone 4 MG/ML VIAL IM ONE (12:27)
[2019-01-24 12:42] VITALS: BP 151/100
== END 2019-01-24 12:40 | disposition home or self-care (01) ==
LOC: ED 10:34
DX: I10 Essential (primary) hypertension (principal); R53.81 Other malaise
CPT/HCPCS: 71045; 96372; 99283; J1100

== ENCOUNTER 2019-02-24 12:08 | Observation (INO) | payer MEDICARE, OTHER ==
--- NOTE | 2019-02-24 13:25 | XRay Report ---
CHEST 1 VIEW 02/24/2019 12:46 PM INDICATION / CLINICAL INFORMATION: WEAKNESS. COMPARISON: Chest x-ray on 01/24/2019. FINDINGS: SUPPORT DEVICES: None. HEART / MEDIASTINUM: Stable. LUNGS / PLEURA: No significant pulmonary or pleural abnormality. No pneumothorax. ADDITIONAL FINDINGS: No significant additional findings. IMPRESSION: 1. No acute findings. Signer Name: Daniel Lindo MD Signed: 02/24/2019 1:20 PM Workstation Name: [id number]
[2019-02-24 13:40] LABS: Basophils % (Auto) 0.4 % (0.0-1.8); Eosinophils # (Auto) 0.1 K/mm3 (0.0-0.4); Eosinophils % (Auto) 1.3 % (0.0-4.3); Hematocrit 35.5 % (30.3-42.9); Hemoglobin 11.7 gm/dl (10.1-14.3); Lymphocytes # (Auto) 0.8 K/mm3 (1.2-5.4); Lymphocytes % (Auto) 17.1 % (13.4-35.0); Mean Corpuscular HGB Conc 33 % (30-34); Mean Corpuscular Volume 87 fl (79-97); Monocytes # (Auto) 0.4 K/mm3 (0.0-0.8); Monocytes % (Auto) 9.1 % (0.0-7.3); Platelet Count 222 K/mm3 (140-440); Red Blood Count 4.11 M/mm3 (3.65-5.03)
[2019-02-24 13:50] LABS: INR 1.04 (0.87-1.13)
[2019-02-24 13:53] LABS: Partial Thromboplastin Time 28.1 Sec. (24.2-36.6)
[2019-02-24 13:58] LABS: Alanine Aminotransferase 16 units/L (7-56); Albumin 3.4 g/dL (3.9-5); BUN/Creatinine Ratio 21; Blood Urea Nitrogen 25 mg/dL (7-17); Calcium 8.5 mg/dL (8.4-10.2); Hemolysis Index 5
--- NOTE | 2019-02-24 15:34 | Emergency Department Report ---
<AUDREY SHELL - Last Filed: 02/24/19 15:29> ED General Adult HPI - General Chief complaint: Altered Mental Status Stated complaint: POSS OD/CVA Time Seen by Provider: 02/24/19 12:26 Source: EMS Mode of arrival: Stretcher Limitations: No Limitations - History of Present Illness Initial comments: Patient presents to the emergency department with a chief complaint of right facial droop and increased slurred speech was altered mental status. Patient has a history of previous strokes and has residual speech deficits. Per family the patient was seen last normal at 9:30 PM last night. 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 Per the family the patient is also confused but this seems to have improved upon arrival to the ED. -: Sudden Severity scale (0 -10): 0 Improves with: none Worsens with: none Associated Symptoms: denies other symptoms Treatments Prior to Arrival: none - Related Data Previous Rx's Medication Instructions Recorded Last Taken Type Aspirin [Aspirin BABY CHEW TAB] 81 mg PO QDAY #30 tab.chew 08/20/16 3 Days Ago Rx ~02/23/17 Carvedilol [Coreg] 3.125 mg PO BID #60 tablet 08/20/16 3 Days Ago Rx ~02/23/17 Clopidogrel [Plavix] 75 mg PO QDAY #30 tablet 08/20/16 3 Days Ago Rx ~02/23/17 SUMAtriptan succinate [SUMAtriptan 50 mg PO Q6H PRN #20 tablet 08/20/16 3 Days Ago Rx Succinate] ~02/23/17 Sertraline HCl [Zoloft] 100 mg PO QHS #60 tablet 08/20/16 3 Days Ago Rx ~02/23/17 Simvastatin [Zocor TAB] 40 mg PO QHS #30 tablet 08/20/16 3 Days Ago Rx ~02/23/17 levETIRAcetam [Keppra TAB] 500 mg PO BID #60 tablet 08/20/16 3 Days Ago Rx ~02/23/17 Chlorthalidone [Thalitone] 12.5 mg PO QDAY #30 tablet 02/27/17 Unknown Rx Hydroxychloroquine [Plaquenil] 200 mg PO QDAY #30 tablet 02/27/17 Unknown Rx Lisinopril [Zestril TAB] 40 mg PO QDAY #30 tablet 02/27/17 Unknown Rx Ibuprofen [Motrin] 800 mg PO Q8HR PRN #30 tablet 01/24/19 Unknown Rx Ibuprofen [Motrin] 800 mg PO Q8HR PRN #30 tablet 01/24/19 Unknown Rx Allergies Allergy/AdvReac Type Severity Reaction Status Date / Time No Known Allergies Allergy Verified 02/24/19 12:32 ED Review of Systems Comment: All other systems reviewed and negative Constitutional: denies: chills, fever Eyes: denies: eye pain, eye discharge, vision change ENT: denies: ear pain, throat pain Respiratory: denies: cough, shortness of breath, wheezing Cardiovascular: denies: chest pain, palpitations Endocrine: no symptoms reported Gastrointestinal: denies: abdominal pain, nausea, diarrhea Genitourinary: denies: urgency, dysuria, discharge Musculoskeletal: denies: back pain, joint swelling, arthralgia Skin: denies: rash, lesions Neurological: denies: headache, weakness, paresthesias Psychiatric: denies: anxiety, depression Hematological/Lymphatic: denies: easy bleeding, easy bruising ED Past Medical Hx - Past Medical History Previous Medical History?: Yes Hx Hypertension: Yes 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, dysphasia) Hx Heart Attack/AMI: Yes (stents) Hx Congestive Heart Failure: No Hx Diabetes: No Hx Renal Disease: Yes Hx Arthritis: No Hx Headaches / Migraines: Yes Hx Seizures: Yes Hx Psychiatric Treatment: Yes (depression) Hx Asthma: No Hx COPD: No Additional medical history: lupus, ambulates with assistance - Surgical History Past Surgical History?: Yes Hx Coronary Stent: Yes Hx Open Heart Surgery: Yes (stents) - Social History Smoking Status: Never Smoker Substance Use Type: None - Medications Home Medications: Home Medications Medication Instructions Recorded Confirmed Last Taken Type Aspirin [Aspirin BABY CHEW TAB] 81 mg PO QDAY #30 tab.chew 08/20/16 11/01/18 3 Days Ago Rx ~02/23/17 Carvedilol [Coreg] 3.125 mg PO BID #60 tablet 08/20/16 11/01/18 3 Days Ago Rx ~02/23/17 Clopidogrel [Plavix] 75 mg PO QDAY #30 tablet 08/20/16 11/01/18 3 Days Ago Rx ~02/23/17 SUMAtriptan succinate [SUMAtriptan 50 mg PO Q6H PRN #20 tablet 08/20/16 11/01/18 3 Days Ago Rx Succinate] ~02/23/17 Sertraline HCl [Zoloft] 100 mg PO QHS #60 tablet 08/20/16 11/01/18 3 Days Ago Rx ~02/23/17 Simvastatin [Zocor TAB] 40 mg PO QHS #30 tablet 08/20/16 11/01/18 3 Days Ago Rx ~02/23/17 levETIRAcetam [Keppra TAB] 500 mg PO BID #60 tablet 08/20/16 11/01/18 3 Days Ago Rx ~02/23/17 Chlorthalidone [Thalitone] 12.5 mg PO QDAY #30 tablet 02/27/17 11/01/18 Unknown Rx Hydroxychloroquine [Plaquenil] 200 mg PO QDAY #30 tablet 02/27/17 11/01/18 Unknown Rx Lisinopril [Zestril TAB] 40 mg PO QDAY #30 tablet 02/27/17 11/01/18 Unknown Rx Ibuprofen [Motrin] 800 mg PO Q8HR PRN #30 tablet 01/24/19 Unknown Rx Ibuprofen [Motrin] 800 mg PO Q8HR PRN #30 tablet 01/24/19 Unknown Rx ED Physical Exam - General Limitations: No Limitations General appearance: alert, in no apparent distress - Head Head exam: Present: atraumatic, normocephalic - Eye Eye exam: Present: normal appearance - ENT ENT exam: Present: mucous membranes moist - Neck Neck exam: Present: normal inspection - Respiratory Respiratory exam: Present: normal lung sounds bilaterally. Absent: respiratory distress - Cardiovascular Cardiovascular Exam: Present: regular rate, normal rhythm. Absent: systolic murmur, diastolic murmur, rubs, gallop - GI/Abdominal GI/Abdominal exam: Present: soft, normal bowel sounds. Absent: distended, tenderness - Extremities Exam Extremities exam: Present: normal inspection - Back Exam Back exam: Present: normal inspection - Neurological Exam Neurological exam: Present: alert, oriented X3, other (patient has previous neurologic deficits of the right upper extremity on exam) - Psychiatric Psychiatric exam: Present: normal affect, normal mood - Skin Skin exam: Present: warm, dry, intact, normal color. Absent: rash ED Medical Decision Making - Lab Data Result diagrams: 02/24/19 12:56 02/24/19 12:56 ED Disposition Condition: Stable Referrals: PRIMARY CARE, [Primary Care Provider] - 3-5 Days - Level of Consciousness 1a. Level of Consciousness: alert/keenly responsive - LOC Questions 1b. LOC Questions: answers both correctly - LOC Command 1c. LOC Commands: performs tasks correctly - Best Gaze 2. Best Gaze: normal - Visual 3. Visual: no visual loss - Facial Palsy 4. Facial Palsy: minor paralysis - Motor Arm 5a. Motor Arm Left: no drift 5b. Motor Arm Right: no movement - Motor Leg 6a. Motor Leg Left: no drift 6b. Motor Leg Right: no drift - Limb Ataxia 7. Limb Ataxia: absent - Sensory 8. Sensory: normal - Best Language 9. Best Language: severe aphasia - Dysarthria 10. Dysarthria: normal - Extinction and Inattention 11. Extinction/Inattention: no abnormality - Scoring Total Score: 7 Stroke Severity: Moderate Stroke <JENARO CONNOR - Last Filed: 02/24/19 16:12> ED Review of Systems ROS: Stated complaint: POSS OD/CVA Other details as noted in HPI ED Course Vital Signs 02/24/19 02/24/19 02/24/19 12:27 12:30 12:31 Temperature 98.7 F Pulse Rate 64 63 69 Respiratory 10 L 16 15 Rate Blood Pressure 84/44 91/51 Blood Pressure 89/46 [Left] O2 Sat by Pulse 99 Oximetry 02/24/19 02/24/19 02/24/19 12:45 13:01 13:08 Temperature Pulse Rate 62 65 87 Respiratory 10 L 17 18 Rate Blood Pressure 84/45 91/51 Blood Pressure 101/52 [Left] O2 Sat by Pulse 97 100 Oximetry 02/24/19 02/24/19 02/24/19 13:15 13:31 13:45 Temperature Pulse Rate 58 L 56 L 56 L Respiratory 15 14 13 Rate Blood Pressure 101/58 84/45 101/61 Blood Pressure [Left] O2 Sat by Pulse 97 96 95 Oximetry 02/24/19 02/24/19 02/24/19 14:00 14:15 14:30 Temperature Pulse Rate 54 L 54 L 56 L Respiratory 13 14 18 Rate Blood Pressure 101/59 100/56 97/46 Blood Pressure [Left] O2 Sat by Pulse 96 98 97 Oximetry 10/02/24/19 02/24/19 14:45 15:00 15:15 Temperature Pulse Rate 54 L 54 L 55 L Respiratory 14 13 14 Rate Blood Pressure 89/51 93/53 95/56 Blood Pressure [Left] O2 Sat by Pulse 97 97 98 Oximetry 02/24/19 02/24/19 15:31 15:45 Temperature Pulse Rate 56 L 61 Respiratory 14 12 Rate Blood Pressure 116/73 112/71 Blood Pressure [Left] O2 Sat by Pulse 99 100 Oximetry ED Medical Decision Making - Lab Data Result diagrams: 02/24/19 12:56 02/24/19 12:56 - Radiology Data Radiology results: report reviewed (CT head), image reviewed (CT head) [facility] [address] [place] [address] Cat Scan Report Signed Patient: EMY PÉREZ MR#: [id number] : 1975 Acct:[id number] Age/Sex: 43 / F ADM Date: 02/24/19 Loc: ED Attending Dr: Ordering Physician: AUDREY SHELL MD Date of Service: 02/24/19 Pr ocedure(s): CT head/brain wo con Accession Number(s): [id number] cc: AUDREY SHELL MD CT head without contrast INDICATION : ams. TECHNIQUE: Axial imaging performed from the skull apex through the skull base without the use of contrast. All CT scans at this location are performed using CT dose reduction for ALARA by means of automated exposure control. COMPARISON: CT head from 11/01/2018 FINDINGS: Parenchyma: Large old left MCA distribution infarction again noted with encephalomalacia and areas of calcification. No acute intracranial hemorrhage or parenchymal abnormality identified. Ventricles: Ventricles are normal in size and appear symmetric. Soft tissues: Soft tissues including the orbits appear normal. Bones: No acute osseous abnormality. Sinuses: Sinuses and mastoid air cells are clear. IMPRESSION: No acute abnormality. Signer Name: Jevon Stevenson MD Signed: 02/24/2019 4:04 PM Workstation Name: [id number] Transcribed By: JW Dictated By: Jevon Stevenson MD Electronically Authenti cated By: Jevon Stevenson MD Signed Date/Time: 02/24/19 160 DD/ 1603 TD/TT: Critical care attestation.: If time is entered above; I have spent that time in minutes in the direct care of this critically ill patient, excluding procedure time. ED Disposition Time of Disposition: 16:12 (hospitalist paged (Dr Soni))
--- NOTE | 2019-02-24 16:08 | Cat Scan Report ---
CT head without contrast INDICATION : ams. TECHNIQUE: Axial imaging performed from the skull apex through the skull base without the use of con trast. All CT scans at this location are performed using CT dose reduction for ALARA by means of aut omated exposure control. COMPARISON: CT head from 11/01/2018 FINDINGS: Parenchyma: Large old left MCA distribution infarction again noted with encephalomalacia and areas o f calcification. No acute intracranial hemorrhage or parenchymal abnormality identified. Ventricles: Ventricles are normal in size and appear symmetric. Soft tissues: Soft tissues including the orbits appear normal. Bones: No acute osseous abnormality. Sinuses: Sinuses and mastoid air cells are clear. IMPRESSION: No acute abnormality. Signer Name: Jevon Stevenson MD Signed: 02/24/2019 4:04 PM Workstation Name: [id number]
[2019-02-24] MEDS ORDERED: ASPIRIN 325 MG TAB PO ONE (16:49)
[2019-02-24] MEDS ORDERED: IBUPROFEN 800 MG TAB PO PRN (21:55)
[2019-02-24] MEDS ORDERED: SUMAtriptan SUCCINATE 50 MG TAB PO PRN (21:55)
[2019-02-24] MEDS ORDERED: PRAVASTATIN 80 MG TAB PO SCH (22:00)
[2019-02-24] MEDS ORDERED: NON-FORMULARY EACH (Simvastatin 40 MG) PO SCH (22:00)
[2019-02-24] MEDS ORDERED: SERTRALINE 100 MG TAB PO SCH (22:00)
[2019-02-24] MEDS: levETIRAcetam 500 MG TAB PO SCH (22:52)
[2019-02-24] MEDS: CLOPIDOGREL 75 MG TAB PO SCH (22:53)
[2019-02-24] MEDS: LISINOPRIL 40 MG TAB PO SCH (22:54)
[2019-02-24] MEDS: CHLORTHALIDONE 25 MG TAB PO SCH (22:54)
[2019-02-24] MEDS: HYDROXYCHLOROQUINE 200 MG TAB PO SCH (22:54)
[2019-02-24] MEDS: CARVEDILOL 3.125 MG TAB PO SCH (22:56)
[2019-02-24] MEDS: oxyCODONE /ACETAMINOPHEN 5-325MG TAB PO PRN (23:17)
[2019-02-25] MEDS: oxyCODONE /ACETAMINOPHEN 5-325MG TAB PO PRN ×3 (05:02→15:32)
--- NOTE | 2019-02-25 07:53 | History and Physical Report ---
History of Present Illness Date of examination: 02/24/19 Date of admission: 02/24/19 16:39 Chief complaint: Rt Facial droop and slurred speech History of present illness: Patient presents to the emergency department with a chief complaint of right facial droop and increased slurred speech with altered mental status. Patient has a history of previous strokes and has residual speech deficits. Per family the patient was seen last normal at 9:30 PM last night. 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 Per the family the patient is also confused but this seems to have improved upon arrival to the ED.Patient says she has more RLE weakness.Has RUE weakness with contractures from previous strokesx5.Able to walk.has Lupus.on plaquenil. Past Medical History Previous Medical History?: Yes Hypertension: Yes CVA: Yes (x5 with right side paralysis, dysphasia) Heart Attack/AMI: Yes (stents) Headaches / Migraines: Yes Seizures: Yes Psychiatric Treatment: Yes (depression) Lupus, ambulates with assistance Surgical History Past Surgical History?: Yes Coronary Stent: Yes Open Heart Surgery: Yes (stents) Social History Smoking Status: Never Smoker Substance Use Type: None Family History Htn Medications Home Medications: Home Medications Medication Instructions Recorded Confirmed Last Taken Type Aspirin [Aspirin BABY CHEW TAB] 81 mg PO QDAY #30 tab.chew 08/20/16 11/01/18 3 Days Ago Rx ~02/23/17 Carvedilol [Coreg] 3.125 mg PO BID #60 tablet 08/20/16 11/01/18 3 Days Ago Rx ~02/23/17 Clopidogrel [Plavix] 75 mg PO QDAY #30 tablet 08/20/16 11/01/18 3 Days Ago Rx ~02/23/17 SUMAtriptan succinate [SUMAtriptan 50 mg PO Q6H PRN #20 tablet 08/20/16 11/01/18 3 Days Ago Rx Succinate] ~02/23/17 Sertraline HCl [Zoloft] 100 mg PO QHS #60 tablet 08/20/16 11/01/18 3 Days Ago Rx ~02/23/17 Simvastatin [Zocor TAB] 40 mg PO QHS #30 tablet 08/20/16 11/01/18 3 Days Ago Rx ~02/23/17 levETIRAcetam [Keppra TAB] 500 mg PO BID #60 tablet 08/20/16 11/01/18 3 Days Ago Rx ~02/23/17 Chlorthalidone [Thalitone] 12.5 mg PO QDAY #30 tablet 02/27/17 11/01/18 Unknown Rx Hydroxychloroquine [Plaquenil] 200 mg PO QDAY #30 tablet 02/27/17 11/01/18 Unkn own Rx Lisinopril [Zestril TAB] 40 mg PO QDAY #30 tablet 02/27/17 11/01/18 Unknown Rx Ibuprofen [Motrin] 800 mg PO Q8HR PRN #30 tablet 01/24/19 Unknown Rx Ibuprofen [Motrin] 800 mg PO Q8HR PRN #30 tablet 01/24/19 Unknown Rx Review of Systems Comment: All other systems reviewed and negative Constitutional: denies: chills, fever Eyes: denies: eye pain, eye discharge, vision change ENT: denies: ear pain, throat pain Respiratory: denies: cough, shortness of breath, wheezing Cardiovascular: denies: chest pain, palpitations Endocrine: no symptoms reported Gastrointestinal: denies: abdominal pain, nausea, diarrhea Genitourinary: denies: urgency, dysuria, discharge Musculoskeletal: denies: back pain, joint swelling, arthralgia Skin: denies: rash, lesions Neurological: denies: headache, weakness, paresthesias Psychiatric: denies: anxiety, depression Hematological/Lymphatic: denies: easy bleeding, easy bruising Medications and Allergies Allergies Allergy/AdvReac Type Severity Reaction Status Date / Time No Known Allergies Allergy Verified 02/24/19 22:02 Home Medications Medication Instructions Recorded Confirmed Last Taken Type Aspirin [Aspirin BABY CHEW TAB] 81 mg PO QDAY #30 tab.chew 08/20/16 02/24/19 2 Days Ago Rx ~02/22/19 Carvedilol [Coreg] 3.125 mg PO BID #60 tablet 08/20/16 02/24/19 1 Day Ago Rx ~02/23/19 Clopidogrel [Plavix] 75 mg PO QDAY #30 tablet 08/20/16 02/24/19 1 Day Ago Rx ~02/23/19 SUMAtriptan succinate [SUMAtriptan 50 mg PO Q6H PRN #20 tablet 08/20/16 02/24/19 1 Day Ago Rx Succinate] ~02/23/19 Sertraline HCl [Zoloft] 100 mg PO QHS #60 tablet 08/20/16 02/24/19 1 Day Ago Rx ~02/23/19 Simvastatin [Zocor TAB] 40 mg PO QHS #30 tablet 08/20/16 02/24/19 1 Day Ago Rx ~02/23/19 levETIRAcetam [Keppra TAB] 500 mg PO BID #60 tablet 08/20/16 02/24/19 1 Day Ago Rx ~02/23/19 Chlorthalidone [Thalitone] 12.5 mg PO QDAY #30 tablet 02/27/17 02/24/19 1 Day Ago Rx ~02/23/19 Hydroxychloroquine [Plaquenil] 200 mg PO QDAY #30 tablet 02/27/17 02/24/19 1 Day Ago Rx ~02/23/19 Lisinopril [Zestril TAB] 40 mg PO QDAY #30 tablet 02/27/17 02/24/19 1 Day Ago Rx ~02/23/19 Ibuprofen [Motrin] 800 mg PO Q8HR PRN #30 tablet 01/24/19 02/24/19 1 Day Ago Rx ~02/23/19 Ibuprofen [Motrin] 800 mg PO Q8HR PRN #30 tablet 01/24/19 02/24/19 1 Day Ago Rx ~02/23/19 Active Meds: Active Medications Aspirin (Baby Aspirin) 81 mg PO QDAY [facility] Carvedilol (Coreg) 3.125 mg PO BID [facility] Last Admin: 02/24/19 22:56 Dose: Not Given Documented by: Chlorthalidone (Thalitone) 12.5 mg PO QDAY [facility] Last Admin: 02/24/19 22:54 Dose: Not Given Documented by: Clopidogrel Bisulfate (Plavix) 75 mg PO QDAY [facility] Last Admin: 02/24/19 22:53 Dose: Not Given Documented by: Hydroxychloroquine Sulfate (Plaquenil) 200 mg PO QDAY [facility] Last Admin: 02/24/19 22:54 Dose: Not Given Documented by: Ibuprofen (Ibuprofen) 800 mg PO Q8HR PRN PRN Reason: Pain, Moderate (4-6) Levetiracetam (Keppra) 500 mg PO BID [facility] Last Admin: 02/24/19 22:52 Dose: 500 mg Documented by: Lisinopril (Zestril) 40 mg PO QDAY [facility] Last Admin: 02/24/19 22:54 Dose: Not Given Documented by: Oxycodone/Acetaminophen (Percocet 5/325) 1 tab PO Q6H PRN PRN Reason: Pain, Moderate (4-6) Last Admin: 02/25/19 05:02 Dose: 1 tab Documented by: Pravastatin Sodium (Pravachol) 80 mg PO QHS [facility] Last Admin: 02/24/19 22:52 Dose: 80 mg Documented by: Sertraline HCl (Zoloft) 100 mg PO QHS [facility] Last Admin: 02/24/19 22:56 Dose: 100 mg Documented by: Sumatriptan Succinate (Imitrex) 50 mg PO Q6H PRN PRN Reason: migraines Exam - Constitutional Vitals: Temp Pulse Resp BP Pulse Ox 98.6 F 67 18 122/74 99 02/25/19 07:44 02/25/19 07:44 02/25/19 07:44 02/25/19 07:44 02/25/19 07:44 General appearance: Present: no acute distress, well-nourished - EENT Eyes: Present: PERRL ENT: hearing intact, clear oral mucosa - Neck Neck: Present: supple, normal ROM - Respiratory Respiratory effort: normal Respiratory: bilateral: CTA - Cardiovascular Heart rate: 78 Rhythm: regular Heart Sounds: Present: S1 & S2. Absent: rub, click - Extremities Extremities: pulses symmetrical, No edema Peripheral Pulses: within normal limits - Abdominal General gastrointestinal: Present: soft, non-tender, non-distended, normal bowel sounds Female genitourinary: Present: normal - Rectal Rectal Exam: deferred - Integumentary Integumentary: Present: clear, warm, dry - Musculoskeletal Musculoskeletal: right sided weakness (RUE 0/5 power, RLE 3/5 power) - Psychiatric Psychiatric: appropriate mood/affect, intact judgment & insight - Neurologic Neurologic: CNII-XII intact, moves all extremities - Allied Health Allied health notes reviewed: nursing, case management Results - Labs CBC & Chem 7: 02/24/19 12:56 02/24/19 12:56 Labs: Laboratory Last Values WBC 4.7 K/mm3 (4.5-11.0) 02/24/19 12:56 RBC 4.11 M/mm3 (3.65-5.03) 02/24/19 12:56 Hgb 11.7 gm/dl (10.1-14.3) 02/24/19 12:56 Hct 35.5 % (30.3-42.9) 02/24/19 12:56 MCV 87 fl (79-97) 02/24/19 12:56 MCH 28 pg (28-32) 02/24/19 12:56 MCHC 33 % (30-34) 02/24/19 12:56 RDW 15.0 % (13.2-15.2) 02/24/19 12:56 Plt Count 222 K/mm3 (140-440) 02/24/19 12:56 Lymph % (Auto) 17.1 % (13.4-35.0) 02/24/19 12:56 [place] % (Auto) 9.1 % (0.0-7.3) H 02/24/19 12:56 Eos % (Auto) 1.3 % (0.0-4.3) 02/24/19 12:56 Baso % (Auto) 0.4 % (0.0-1.8) 02/24/19 12:56 Lymph # 0.8 K/mm3 (1.2-5.4) L 02/24/19 12:56 [place] # 0.4 K/mm3 (0.0-0.8) 02/24/19 12:56 Eos # 0.1 K/mm3 (0.0-0.4) 02/24/19 12:56 Baso # 0.0 K/mm3 (0.0-0.1) 02/24/19 12:56 Seg Neutrophils % 72.1 % (40.0-70.0) H 02/24/19 12:56 Seg Neutrophils # 3.4 K/mm3 (1.8-7.7) 02/24/19 12:56 PT 13.5 Sec. (12.2-14.9) 02/24/19 12:56 INR 1.04 (0.87-1.13) 02/24/19 12:56 APTT 28.1 Sec. (24.2-36.6) 02/24/19 12:56 Sodium 136 mmol/L (137-145) L 02/24/19 12:56 Potassium 3.9 mmol/L (3.6-5.0) 02/24/19 12:56 Chloride 99.7 mmol/L (98-107) 02/24/19 12:56 Carbon Dioxide 25 mmol/L (22-30) 02/24/19 12:56 Anion Gap 15 mmol/L 02/24/19 12:56 BUN 25 mg/dL (7-17) H 02/24/19 12:56 Creatinine 1.2 mg/dL (0.7-1.2) 02/24/19 12:56 Estimated GFR 59 ml/min 02/24/19 12:56 BUN/Creatinine Ratio 21 % 02/24/19 12:56 Glucose 98 mg/dL (65-100) 02/24/19 12:56 Lactic Acid 0.70 mmol/L (0.7-2.0) 02/24/19 13:11 Calcium 8.5 mg/dL (8.4-10.2) 02/24/19 12:56 Total Bilirubin 0.20 mg/dL (0.1-1.2) 02/24/19 12:56 AST 14 units/L (5-40) 02/24/19 12:56 ALT 16 units/L (7-56) 02/24/19 12:56 Alkaline Phosphatase 73 units/L (35-129) 02/24/19 12:56 Troponin T < 0.010 ng/mL (0.00-0.029) 02/24/19 12:56 Total Protein 6.8 g/dL (6.3-8.2) 02/24/19 12:56 Albumin 3.4 g/dL (3.9-5) L 02/24/19 12:56 Albumin/Globulin Ratio 1.0 % 02/24/19 12:56 Short CBC 02/24/19 Range/Units 12:56 WBC 4.7 (4.5-11.0) K/mm3 Hgb 11.7 (10.1-14.3) gm/dl Hct 35.5 (30.3-42.9) % Plt Count 222 (140-440) K/mm3 BMP 02/24/19 12:56 Sodium 136 L Potassium 3.9 Chloride 99.7 Carbon Dioxide 25 BUN 25 H Creatinine 1.2 Glucose 98 Calcium 8.5 Cardiac Enzymes 02/24/19 Range/Units 12:56 Troponin T < 0.010 (0.00-0.029) ng/mL Liver Function 02/24/19 Range/Units 12:56 Total Bilirubin 0.20 (0.1-1.2) mg/dL AST 14 (5-40) units/L ALT 16 (7-56) units/L Alkaline Phosphatase 73 (35-129) units/L Albumin 3.4 L (3.9-5) g/dL - Imaging and Cardiology EKG: report reviewed Chest x-ray: report reviewed (NAF) CT Scan - head: report reviewed (NAF) Assessment and Plan Advance Directives: Yes (Full code) VTE prophylaxis?: Chemical Plan of care discussed with patient/family: Yes - Patient Problems (1) TIA (transient ischemic attack) Current Visit: Yes Status: Acute Plan to address problem: TIA versus CVA MRI/CDS /ECHO Neuro consult (2) HTN (hypertension) Current Visit: No Status: Chronic Qualifiers: Hypertension type: essential hypertension Plan to address problem: Cont antihypertensives (3) Hemiparesis affecting right side as late effect of cerebrovascular accident Current Visit: No Status: Chronic Plan to address problem: PT/OT (4) CAD (coronary artery disease) Current Visit: Yes Status: Acute Qualifiers: Coronary Disease-Associated Artery/Lesion type: [place] artery [place] vs. transplanted heart: [place] heart Plan to address problem: COnt ASA and ISMO (5) HTN (hypertension) Current Visit: Yes Status: Chronic Qualifiers: Hypertension type: essential hypertension Qualified Code(s): I10 - Essential (primary) hypertension (6) HLD (hyperlipidemia) Current Visit: Yes Status: Chronic Qualifiers: Hyperlipidemia type: mixed hyperlipidemia Qualified Code(s): E78.2 - Mixed hyperlipidemia Plan to address problem: Cont statins (7) Depression Current Visit: Yes Status: Chronic Qualifiers: Depression Type: unspecified Qualified Code(s): F32.9 - Major depressive disorder, single episode, unspecified Plan to address problem: Cont antidepressants (8) Migraine Current Visit: Yes Status: Inactive Plan to address problem: Tryptophans prn (9) Seizure disorder Current Visit: Yes Status: Chronic Plan to address problem: Cont AED's (10) Lupus (systemic lupus erythematosus) Current Visit: Yes Status: Chronic Qualifiers: Systemic lupus erythematosus type: unspecified Systemic lupus erythematosus organ involvement: unspecified Qualified Code(s): M32.9 - Systemic lupus erythematosus, unspecified Plan to address problem: Cont Plaqunil (11) DVT prophylaxis Current Visit: Yes Status: Acute Plan to address problem: On Lovenox and GI prophylaxis
[2019-02-25] MEDS ORDERED: ASPIRIN 81 MG TAB CHEW PO SCH (10:00)
[2019-02-25] MEDS: CHLORTHALIDONE 25 MG TAB PO SCH (10:22)
[2019-02-25] MEDS: HYDROXYCHLOROQUINE 200 MG TAB PO SCH (10:22)
[2019-02-25 10:23] VITALS: BP 128/54
[2019-02-25] MEDS: LISINOPRIL 40 MG TAB PO SCH (10:23)
[2019-02-25] MEDS: CLOPIDOGREL 75 MG TAB PO SCH (10:23)
[2019-02-25] MEDS: levETIRAcetam 500 MG TAB PO SCH (10:23)
[2019-02-25] MEDS: CARVEDILOL 3.125 MG TAB PO SCH (10:23)
--- NOTE | 2019-02-25 11:32 | Progress Note ---
Assessment and Plan - Patient Problems (1) TIA (transient ischemic attack) Current Visit: Yes Status: Acute Plan to address problem: TIA versus CVA MRI/CDS /ECHO Neuro consult W/u pending (2) HTN (hypertension) Current Visit: No Status: Chronic Qualifiers: Hypertension type: essential hypertension Qualified Code(s): I10 - E ssential (primary) hypertension Plan to address problem: Cont antihypertensives (3) Hemiparesis affecting right side as late effect of cerebrovascular accident Current Visit: No Status: Chronic Plan to address problem: PT/OT (4) CAD (coronary artery disease) Current Visit: Yes Status: Acute Qualifiers: Coronary Disease-Associated Artery/Lesion type: [place] artery [place] vs. transplanted heart: [place] heart Plan to address problem: COnt ASA and ISMO (5) HTN (hypertension) Current Visit: Yes Status: Chronic Qualifiers: Hypertension type: essential hypertension Qualified Code(s): I10 - Essen tial (primary) hypertension (6) HLD (hyperlipidemia) Current Visit: Yes Status: Chronic Qualifiers: Hyperlipidemia type: mixed hyperlipidemia Qualified Code(s): E78.2 - Mixed hyperlipidemia Plan to address problem: Cont statins (7) Depression Current Visit: Yes Status: Chronic Qualifiers: Depression Type: unspecified Qualified Code(s): F32.9 - Major depressive disorder, single episode, unspecified Plan to address problem: Cont antidepressants (8) Migraine Current Visit: Yes Status: Inactive Plan to address problem: Tryptophans prn (9) Seizure disorder Current Visit: Yes Status: Chronic Plan to address problem: Cont AED's (10) Lupus (systemic lupus erythematosus) Current Visit: Yes Status: Chronic Qualifiers: Systemic lupus erythematosus type: unspecified Systemic lupus erythematosus organ involvement: unspecified Qualified Code(s): M32.9 - Systemic lupus erythematosus, unspecified Plan to address problem: Cont Plaqunil (11) DVT prophylaxis Current Visit: Yes Status: Acute Plan to address problem: On Lovenox and GI prophylaxis Subjective Date of service: 02/25/19 Principal diagnosis: RLE weakness Interval history: Patient presents to the emergency department with a chief complaint of right facial droop and increased slurred speech with altered mental status. Patient has a history of previous strokes and has residual speech deficits. Per family the patient was seen last normal at 9:30 PM last night. 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 Per the family the patient is also confused but this seems to have improved upon arrival to the ED.Patient says she has more RLE weakness.Has RUE weakness with contractures from previous strokesx5.Able to walk.has Lupus.on plaquenil. More alert and oriented Dysarthric. Objective - Constitutional Vitals: Vital Signs - 12hr 02/25/19 02/25/19 02/25/19 04:26 07:44 10:23 Temperature 98.1 F 98.6 F Pulse Rate 60 67 66 Respiratory 18 18 Rate Blood Pressure 100/61 122/74 128/54 O2 Sat by Pulse 98 99 Oximetry General appearance: Present: no acute distress, well-nourished - EENT Eyes: PERRL, EOM intact ENT: hearing intact, clear oral mucosa Ears: bilateral: normal - Neck Neck: supple, normal ROM - Respiratory Respiratory effort: normal Respiratory: bilateral: CTA - Breasts Breasts: normal - Cardiovascular Heart rate: 78 Rhythm: regular Heart Sounds: Present: S1 & S2. Absent: gallop, rub Extremities: no ischemia, pulses intact, No edema, normal color, Full ROM - Gastrointestinal General gastrointestinal: Present: soft, non-tender, non-distended, normal bowel sounds - Genitourinary Female genitourinary: normal - Integumentary Integumentary: clear, warm, dry - Musculoskeletal Musculoskeletal: 1, strength equal bilaterally - Neurologic Neurologic: moves all extremities - Psychiatric Psychiatric: memory intact, appropriate mood/affect, intact judgment & insight - Allied health notes Allied health notes reviewed: nursing, case management - Labs CBC & Chem 7: 02/24/19 12:56 02/24/19 12:56 Labs: Abnormal lab results 02/24/19 02/24/19 Range/Units 12:56 12:56 [place] % (Auto) 9.1 H (0.0-7.3) % Lymph # 0.8 L (1.2-5.4) K/mm3 Seg Neutrophils % 72.1 H (40.0-70.0) % Sodium 136 L (137-145) mmol/L BUN 25 H (7-17) mg/dL Albumin 3.4 L (3.9-5) g/dL
--- NOTE | 2019-02-25 14:28 | Vascular Lab Report ---
"DUPLEX DOPPLER ULTRASOUND CAROTID, BILATERAL INDICATION: tia. FINDINGS: RIGHT CAROTID: Mild plaque in the carotid bulb. Right CCA velocity: 87 cm/sec. Right ICA peak systolic velocity: 72 cm/sec. ICA/CCA PSV Ratio: 1.0. Right Vertebral Artery: Antegrade flow. LEFT CAROTID: Mild plaque in the carotid bulb. Left CCA velocity: 86 cm/sec. Left ICA peak systolic velocity: 62 cm/sec. ICA/CCA PSV Ratio: 0.9. Left Vertebral Artery: Antegrade flow. IMPRESSION: 1. Right Internal Carotid Artery: Less than 50% diameter stenosis. 2. Left Internal Carotid Artery: Less than 50% diameter stenosis. Velocity criteria are extrapolated from diameter data as defined by the Society of Radiologists in Ul trasound Consensus Conference, Radiology 2003; 229;340-346. Degree of Stenosis (%) || ICA PSV (cm/sec) || Plaque estimate (%) || ICA/CCA PSV Ratio Normal <125 None <2.0 <50 <125 <50 <2.0 50-69 125-230 50 2.0-4.0 70 but less than 100 >230 50 >4.0 Near occlusion High, low, or none visible variable Total occlusion None visible; no lumen N/A Signer Name: Daniel Lindo MD Signed: 02/25/2019 2:24 PM Workstation Name: [id number]"
--- NOTE | 2019-02-25 15:20 | Discharge Summary ---
Providers - Providers Date of Admission: 02/24/19 16:39 Date of discharge: 02/25/19 Attending physician: BRYAN CORTEZ 02/25/19 11:25 Consult to Physician [CONS] Routine Comment: Consulting Provider: NANCY VILLANUEVA Physician Instructions: Reason For Exam: TIA versus CVA 02/25/19 14:33 Physical Therapy Evaluation and Treat [CONS] Routine Comment: Reason For Exam: Eval/treat- TIA vs. Stroke Primary care physician: [facility] Hospitalization Condition: Stable Hospital course: (1) TIA (transient ischemic attack) Current Visit: Yes Status: Acute Plan to address problem: TIA Patient back to baseline.No weakness in RLE Neuro consult---Agrees with TIA (2) HTN (hypertension) Current Visit: No Status: Chronic Qualifiers: Hypertension type: essential hypertension Plan to address problem: Cont antihypertensives (3) Hemiparesis affecting right side as late effect of cerebrovascular accident Current Visit: No Status: Chronic Plan to address problem: PT/OT (4) CAD (coronary artery disease) Current Visit: Yes Status: Acute Qualifiers: Coronary Disease-Associated Artery/Lesion type: [place] artery [place] vs. transplanted heart: [place] heart Plan to address problem: COnt ASA and ISMO (5) HTN (hypertension) Current Visit: Yes Status: Chronic Qualifiers: Hypertension type: essential hypertension Qualified Code(s): I10 - Esse ntial (primary) hypertension (6) HLD (hyperlipidemia) Current Visit: Yes Status: Chronic Qualifiers: Hyperlipidemia type: mixed hyperlipidemia Qualified Code(s): E78.2 - Mixed hyperlipidemia Plan to address problem: Cont statins (7) Depression Current Visit: Yes Status: Chronic Qualifiers: Depression Type: unspecified Qualified Code(s): F32.9 - Major depressive disorder, single episode, unspecified Plan to address problem: Cont antidepressants (8) Migraine Current Visit: Yes Status: Inactive Plan to address problem: Tryptophans prn (9) Seizure disorder Current Visit: Yes Status: Chronic Plan to address problem: Cont AED's (10) Lupus (systemic lupus erythematosus) Current Visit: Yes Status: Chronic Qualifiers: Systemic lupus erythematosus type: unspecified Systemic lupus erythematosus organ involvement: unspecified Qualified Code(s): M32.9 - Systemic lupus erythematosus, unspecified Plan to address problem: Cont Plaqunil Disposition: DC-01 TO HOME OR SELFCARE - Discharge Diagnoses (1) TIA (transient ischemic attack) Status: Acute (2) HTN (hypertension) Status: Chronic Qualifiers: Qualified Code(s): I10 - Essential (primary) hypertension (3) Hemiparesis affecting right side as late effect of cerebrovascular accident Status: Chronic (4) CAD (coronary artery disease) Status: Acute (5) HTN (hypertension) Status: Chronic Qualifiers: Qualified Code(s): I10 - Essential (primary) hypertension (6) HLD (hyperlipidemia) Status: Chronic Qualifiers: Qualified Code(s): E78.2 - Mixed hyperlipidemia (7) Depression Status: Chronic Qualifiers: Qualified Code(s): F32.9 - Major depressive disorder, single episode, unspecified (8) Migraine Status: Inactive (9) Seizure disorder Status: Chronic (10) Lupus (systemic lupus erythematosus) Status: Chronic Qualifiers: Qualified Code(s): M32.9 - Systemic lupus erythematosus, unspecified (11) DVT prophylaxis Status: Acute Core Measure Documentation - Palliative Care Palliative Care/ Comfort Measures: Not Applicable - Core Measures Any of the following diagnoses?: none Exam - Constitutional Vitals: Temp Pulse Resp BP Pulse Ox 98.6 F 66 19 128/54 98 02/25/19 07:44 02/25/19 13:41 02/25/19 13:41 02/25/19 10:23 02/25/19 13:41 General appearance: Present: no acute distress, well-nourished - EENT Eyes: Present: PERRL ENT: hearing intact, clear oral mucosa - Neck Neck: Present: supple, normal ROM - Respiratory Respiratory effort: normal Respiratory: bilateral: CTA - Cardiovascular Heart rate: 78 Rhythm: regular Heart Sounds: Present: S1 & S2. Absent: rub, click - Extremities Extremities: no ischemia, pulses intact, pulses symmetrical, No edema Peripheral Pulses: within normal limits - Abdominal General gastrointestinal: Present: soft, non-tender, non-distended, normal bowel sounds Female genitourinary: Present: normal - Integumentary Integumentary: Present: clear, warm, dry - Musculoskeletal Musculoskeletal: right sided weakness (RUE contracture,0/5 RUE,RLE weak but can walk) - Psychiatric Psychiatric: appropriate mood/affect, intact judgment & insight - Neurologic Neurologic: CNII-XII intact, moves all extremities - Allied Health Allied health notes reviewed: nursing, case management Plan Activity: no restrictions Diet: low fat, low cholesterol, low salt, diabetic Follow up with: PRIMARY CARE, [Primary Care Provider] - 3-5 Days CONSTANTINO SYKES MD [Staff Physician] - 7 Days
--- NOTE | 2019-02-25 15:22 | Consultation ---
Medications and Allergies Allergies Allergy/AdvReac Type Severity Reaction Status Date / Time No Known Allergies Allergy Verified 02/24/19 22:02 Home Medications Medication Instructions Recorded Confirmed Last Taken Type Aspirin [Aspirin BABY CHEW TAB] 81 mg PO QDAY #30 tab.chew 08/20/16 02/24/19 2 Days Ago Rx ~02/22/19 Carvedilol [Coreg] 3.125 mg PO BID #60 tablet 08/20/16 02/24/19 1 Day Ago Rx ~02/23/19 Clopidogrel [Plavix] 75 mg PO QDAY #30 tablet 08/20/16 02/24/19 1 Day Ago Rx ~02/23/19 SUMAtriptan succinate [SUMAtriptan 50 mg PO Q6H PRN #20 tablet 08/20/16 02/24/19 1 Day Ago Rx Succinate] ~02/23/19 Sertraline HCl [Zoloft] 100 mg PO QHS #60 tablet 08/20/16 02/24/19 1 Day Ago Rx ~02/23/19 Simvastatin [Zocor TAB] 40 mg PO QHS #30 tablet 08/20/16 02/24/19 1 Day Ago Rx ~02/23/19 levETIRAcetam [Keppra TAB] 500 mg PO BID #60 tablet 08/20/16 02/24/19 1 Day Ago Rx ~02/23/19 Chlorthalidone [Thalitone] 12.5 mg PO QDAY #30 tablet 02/27/17 02/24/19 1 Day Ago Rx ~02/23/19 Hydroxychloroquine [Plaquenil] 200 mg PO QDAY #30 tablet 02/27/17 02/24/19 1 Day Ago Rx ~02/23/19 Lisinopril [Zestril TAB] 40 mg PO QDAY #30 tablet 02/27/17 02/24/19 1 Day Ago Rx ~02/23/19 Ibuprofen [Motrin] 800 mg PO Q8HR PRN #30 tablet 01/24/19 02/24/19 1 Day Ago Rx ~02/23/19 Ibuprofen [Motrin] 800 mg PO Q8HR PRN #30 tablet 01/24/19 02/24/19 1 Day Ago Rx ~02/23/19 Active Meds: Active Medications Aspirin (Baby Aspirin) 81 mg PO QDAY [facility] Last Admin: 02/25/19 10:23 Dose: 81 mg Documented by: Carvedilol (Coreg) 3.125 mg PO BID [facility] Last Admin: 02/25/19 10:23 Dose: 3.125 mg Documented by: Chlorthalidone (Thalitone) 12.5 mg PO QDAY [facility] Last Admin: 02/25/19 10:22 Dose: 12.5 mg Documented by: Clopidogrel Bisulfate (Plavix) 75 mg PO QDAY [facility] Last Admin: 02/25/19 10:23 Dose: 75 mg Documented by: Hydroxychloroquine Sulfate (Plaquenil) 200 mg PO QDAY [facility] Last Admin: 02/25/19 10:22 Dose: 200 mg Documented by: Ibuprofen (Ibuprofen) 800 mg PO Q8HR PRN PRN Reason: Pain, Moderate (4-6) Levetiracetam (Keppra) 500 mg PO BID [facility] Last Admin: 02/25/19 10:23 Dose: 500 mg Documented by: Lisinopril (Zestril) 40 mg PO QDAY [facility] Last Admin: 02/25/19 10:23 Dose: 40 mg Documented by: Oxycodone/Acetaminophen (Percocet 5/325) 1 tab PO Q6H PRN PRN Reason: Pain, Moderate (4-6) Last Admin: 02/25/19 11:26 Dose: 1 tab Documented by: Pravastatin Sodium ([facility]achol) [facility] Last Admin: 02/24/19 22:52 Dose: 80 mg Documented by: Sertraline HCl (Zoloft) 100 mg PO QHS [facility] Last Admin: 02/24/19 22:56 Dose: 100 mg Documented by: Sumatriptan Succinate (Imitrex) 50 mg PO Q6H PRN PRN Reason: migraines Physical Examination - Vital Signs Vital Signs: Vital Signs Pulse Resp BP 64 10 L 84/44 02/24/19 12:27 02/24/19 12:27 02/24/19 12:27 Results - Laboratory Findings CBC and BMP: 02/24/19 12:56 02/24/19 12:56 Abnormal Lab Findings: Abnormal Labs 02/24/19 02/24/19 12:56 12:56 Brooks % (Auto) 9.1 H Lymph # 0.8 L Seg Neutrophils % 72.1 H Sodium 136 L BUN 25 H Albumin 3.4 L Assessment and Plan 43 YEAR OLD FEMALE WITH HISTORY OF STROKE, WITH RESIDUAL APHASIA AND RT HEMIPARESIS WITH CONTRACTURE OF RRIGHT HAND WHO WAS ON ASPIRIN BUT WAS NOT TAKING STATIN NOTED RIGHT FACIAL DROOP IN THE MORNING OF 02/24/2019.PATIENT DENIES ANY OTHER ASSOCIATED SYMPTOMS OF INCREASED WEAKNESS ON THE RT SIDE OR ANY SIGNIFICANT WORSENING OF SPEECH.BY THE TIME SHE REACHED ER FACIAL DROOPING WAS GONE. WORK UP INCLUDING CT SCAN OF THE HEAD DID NOT SHOW ANY ACUTE CHANGE. PHYSICAL EXAMINATION IN NO ACUTE DISTRESS,ALERT AND APPROPRIATE. SPEECH -RESIDUAL BROCA'S APHASIA HEART-NORMAL RATE AND RHYTHM. CAROTIDS-BOTH PALPABLE,NO BRUIT. CRANIAL NERVES- RT. FACIAL WEAKNESS ( RESIDUAL). MOTOR- WEAK RIGHT UPPER AND LOWER EXTREMITIES WITH INCREASED REFLEXES AND UP GOING TOE ON THE RIGHT SENSORY- GROSSLY WITH IN NORMAL LIMIT. IMPRESSION. 1. EPISODE SEEMS MOST LIKELY A TIA. RECOMMEND 1. PATIENT SHOULD BE COUNSELED ABOUT TAKING ASPIRIN AND STATIN REGULARLY. 2. DIETARY COUNSELING.
== END 2019-02-25 16:24 | disposition home or self-care (01) ==
LOC: ED 12:08 → 4A 16:39 → INTOOBSV 16:39
PROVIDERS: ADMIT Internal Medicine; ATTEND Internal Medicine
DX: G45.9 Transient cerebral ischemic attack, unspecified (principal); I10 Essential (primary) hypertension; G81.91 Hemiplegia, unspecified affecting right dominant side; I25.10 Atherosclerotic heart disease of native coronary artery without angina pectoris; E78.5 Hyperlipidemia, unspecified; F32.9 Major depressive disorder, single episode, unspecified; G43.909 Migraine, unspecified, not intractable, without status migrainosus; G40.909 Epilepsy, unspecified, not intractable, without status epilepticus; M32.9 Systemic lupus erythematosus, unspecified; Z95.1 Presence of aortocoronary bypass graft; Z79.82 Long term (current) use of aspirin; Z86.73 Personal history of transient ischemic attack (TIA), and cerebral infarction without residual deficits
CPT/HCPCS: 36415; 70450; 71045; 80053; 82140; 84484; 85025; 85610; 85730; 87040; 93005; 93010; 93306; 93880; 99284; A9270; G0378

== ENCOUNTER 2020-10-21 08:29 | Outpatient (CLI) | payer OTHER ==
--- NOTE | 2020-10-22 12:03 | Mammography Report ---
DIGITAL SCREENING MAMMOGRAM WITH CAD, 10/21/2020 CLINICAL INFORMATION / INDICATION: Routine screening mammography. TECHNIQUE: Digital bilateral 2D mammography was obtained in the craniocaudal and mediolateral obliqu e projections. This examination was interpreted with the benefit of Computer-Aided Detection analysis . COMPARISON: None available. FINDINGS: Breast Density: There are scattered areas of fibroglandular density. No dominant mass, suspicious calcifications, or architectural distortion in the right breast. There a re generalized benign-appearing right breast calcifications. There is an indeterminate group of calcifications in the 12-1:00 position posterior depth of the left breast measuring up to 3.7 mm. An indeterminate nodular density is seen in the 7:00 position anterior depth of the left breast measu ring 6.4 x 6.2 mm. Scattered benign-appearing left breast calcifications are also noted. No other sig nificant abnormality of the left breast. IMPRESSION: Indeterminate left breast calcifications and nodular density as above. A diagnostic left mammogram with magnification views and a left breast ultrasound are recommended for further evaluatio n. Follow up recommendation: Special View: Mag BI-RADS Category 0: Incomplete. Needs additional imaging evaluation and/or prior mammograms for balta rison. A "normal" or negative report should not discourage follow up or biopsy of a clinically significant f inding. A written summary of these findings will be mailed to the patient. The patient will be entered into a mammography reporting system which will generate a reminder letter for the patient's next appointmen t at the appropriate interval. The [employer] recommends yearly mammograms starting at age 40 and continuing as l teresa as a woman is in good health. Breast MRI is recommended for women with an approximate 20-25% or greater lifetime risk of breast cancer, including women with a strong family history of breast or ova tammy cancer or who have been treated for Hodgkin's disease. Signer Name: Brandon Reina MD Signed: 10/22/2020 11:59 AM Workstation Name: [id number]
== END 2020-10-21 08:30 | disposition home or self-care (01) ==
LOC: MAMMO 08:29
PROVIDERS: ATTEND Family Medicine
DX: Z12.31 Encounter for screening mammogram for malignant neoplasm of breast (principal); N64.89 Other specified disorders of breast
CPT/HCPCS: 77067

== ENCOUNTER 2022-01-05 15:49 | Emergency (ER) | payer OTHER ==
[2022-01-05 16:18] VITALS: BP 117/76
== END 2022-01-06 02:00 | disposition left against medical advice (07) ==
LOC: ED 15:49
DX: H10.029 Other mucopurulent conjunctivitis, unspecified eye (principal); Z53.21 Procedure and treatment not carried out due to patient leaving prior to being seen by health care provider